=== PATIENT | female | born 1965 | race Caucasian/White ===

== ENCOUNTER 2019-03-30 01:07 | Inpatient (IN) | payer BC ==
[2019-03-30] MEDS ORDERED: Norepinephrine 16MCG/ML IVPRE* 4,000 MCG/250 ML BAG IV ONE (03:17)
[2019-03-30] MEDS ORDERED: Ondansetron INJ* 2 MG/ML VIAL IV PRN (03:49)
[2019-03-30] MEDS ORDERED: Al Hydrox/Mg Hydrox/Simet LIQ* 30 ML UDC PO PRN (03:49)
[2019-03-30] MEDS ORDERED: NS 0.9% 1000 ML** 2,000 ML IV ONE ×2 (03:52→04:14)
[2019-03-30] MEDS ORDERED: Norepinephrine 16MCG/ML IVPRE* 4,000 MCG/250 ML BAG IV SCH (04:00)
[2019-03-30] MEDS ORDERED: NS 0.9% 1000 ML** 1,000 ML IV SCH (04:00)
[2019-03-30 04:23] LABS: Urine Appearance Clear; Urine Bacteria Absent (Absent); Urine Bilirubin Negative (Negative); Urine Blood 2+ (Negative); Urine Color Yellow; Urine Glucose Negative (Negative); Urine Ketones Trace (Negative); Urine Nitrite Negative (Negative); Urine Protein Negative (Negative); Urine Red Blood Cell Trace(0-2/hpf) (Absent); Urine Specific Gravity 1.011 (1.010-1.030); Urine Urobilinogen Negative (Negative); Urine White Blood Cell Trace(0-5/hpf) (Absent)
[2019-03-30 04:42] LABS: ABS Lymphocytes 0.8 10^3/ul (1.0-4.8); ABS Monocytes 1.1 10^3/ul (0-0.8); ABS Neutrophils 11.9 10^3/ul (1.5-7.7); Hematocrit 36 % (35-47); Lymphocyte % 5.5 %; Mean Corpuscular HGB Conc 34 g/dL (31-36); Mean Corpuscular Hemoglobin 34 pg (27-31); Mean Corpuscular Volume 100 fL (80-97); Mean Platelet Volume 7.7 fL (7.4-10.4); Platelet Count 135 10^3/uL (150-450); Red Blood Count 3.56 10^6 /uL (3.70-4.87); Red Cell Distribution Width 12 % (10-15); White Blood Count 13.8 10^3/uL (3.5-10.8)
[2019-03-30] MEDS ORDERED: Vancomycin(*) 1,000 MG in NS 0.9% 250 ML* 250 ML IVPB ONE (04:45)
[2019-03-30] MEDS ORDERED: Vancomycin per Pharmacy* NOTE FOLLOW UP SCH (05:00)
[2019-03-30] MEDS: Morphine INJ* 2 MG/ML 1 ML SYRINGE (TWO MG - NEW SYRINGE VERSION) IV PRN ×5 (05:10→21:47)
[2019-03-30] MEDS: Heparin VIAL(*) 5000 UNITS/ML VIAL (FIVE THOUSAND) SUBCUT SCH ×3 (05:10→21:53)
[2019-03-30] MEDS ORDERED: Cefepime 2 GM in Dextrose(*) 2 GM/50 ML BAG IV SCH (06:30)
--- NOTE | 2019-03-30 07:39 | HP ---
CC: Dr. Aury Georges * HISTORY AND PHYSICAL: DATE OF ADMISSION: 03/30/19 PRIMARY CARE PROVIDER: Aury Georges DO CHIEF COMPLAINT: Lower back pain and fever. The patient was transferred from [facility] with septic shock. HISTORY OF PRESENT ILLNESS: Teresa Alvarez is a 54-year-old female with a history of COPD, who presented to [facility] with fever of 105.6 degrees. The patient stated that on 03/28/19, she developed severe lower back pain. She came to [facility] at that point for evaluation. She stated that she spent about 6 hours or so in the emergency department during which time she had an MRI of the lumbar spine, which showed impression, "this pathology as described above. Degenerative changes in the setting involving the lumbar spine as described above. Following administration of contrast, enhancement involving the L5 and S1 nerve roots was identified likely secondary to inflammation resulting from this pathology. There is no acute abnormality otherwise identified." The patient was prescribed Canalou and Flexeril and discharged home on Sunday, 05/06. On 03/29/19, she developed generalized weakness, chills, and fever. She stated that her legs became so weak she could not walk. Her placed her in the car and brought her to the hospital. She was so weak that she was unable to get out of the car by herself and the hospital staff had to bring the patient over to [facility]. At that point, her temperature was 105.6 degrees. She was apparently confused. She received 3 L of intravenous fluids and was placed on Levophed. Extensive evaluation was performed at [facility] that included CT of the brain, which showed impression "no unenhanced CT evidence of acute intracranial abnormality." CT of the abdomen and pelvis was also performed, which showed "mild haziness of the retroperitoneal region, which may represent questionable early retroperitoneal fibrosis. Clinical correlation and followup is recommended. Otherwise, no unenhanced CT evidence of acute intrapelvic abnormality. The patient also had chest CT without contrast, which showed "predominantly bilateral upper and lower emphysematous changes with mild right basilar atelectasis. Right pulmonary nodule lung-RADS category II benign. Annual screening with low definition CT test is recommended for high-risk patients." The patient's white blood cell count at [facility] was noted to be 12.1. The patient's lactic acid was negative at 1.3. She received 3 L of intravenous fluids and Levaquin due to PENICILLIN allergy. Dr. Arriaga was called by the ED provider from [facility] about the patient needing pressors and she accepted the transfer. When the patient arrived to our hospital, she was afebrile. Her systolic pressures were at approximately 100, on 3 mcg of Levophed only. She was alert and oriented x3. She is going to be admitted to the intensive care unit with diagnosis of septic shock. PAST MEDICAL HISTORY: 1. History of COPD. 2. Right carpal tunnel release. MEDICATIONS: Medications at home include: 1. Canalou 5/325 mg 1 tablet every 6 hours p.r.n. and that was prescribed on 05/06 in the ED. 2. Flexeril 10 mg every 8 hours p.r.n., prescribed 2 days ago. 3. Celexa 20 mg daily. 4. Albuterol inhaler on a p.r.n. basis. 5. Spiriva inhaler 1 inhalation daily. 6. Diclofenac sodium 75 mg take as needed. ALLERGIES: PENICILLIN. The patient does not know what the allergy was. Her parents told her that she is "allergic." FAMILY HISTORY: Positive for mother with ovarian cancer, father with history of COPD. SOCIAL HISTORY: The patient has a history of smoking half a pack of cigarettes a day and she started when she was 12 years old and continues to do so. She denies any alcohol or drug use. 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 She lives with her , who is her surrogate. REVIEW OF SYSTEMS: Please see history of present illness. All remaining 12 systems were reviewed with the patient and were, otherwise, negative. PHYSICAL EXAMINATION GENERAL: The patient is a very pleasant 54-year-old female, who is in no acute distress. She is alert and oriented x3. VITAL SIGNS: Blood pressure is 104/56, heart rate of 79 and regular, respiratory rate is 20, oxygen saturation is 81% on room air, temperature of 98.0. HEENT: Head atraumatic, normocephalic. Eyes: Pupils are equal and reactive to light and accommodation. Oropharynx is clear. Mucosa is moist. NECK: Supple, no JVD. No bruits bilaterally. RESPIRATORY: Wheezes at bilateral lower lungs. CARDIOVASCULAR: Regular rate and rhythm. No murmur. ABDOMEN: Soft and nontender. Bowel sounds present in all 4 quadrants. There is no bilateral flank tenderness on palpation. BACK: On palpation of the spinal column, the patient has severe tenderness over the palpation of the vertebral bodies of the lumbar spine of approximately L1 through L5. SKIN: On evaluation of the skin, no ecchymotic areas or rashes noted. NEUROLOGIC: On neurologic evaluation, cranial nerves II through XII are grossly intact. Motor strength is 5/5 in bilateral upper extremities and 4+/5 in bilateral lower extremities. Babinski's sign is negative bilaterally. It appears that the patient is not willing to participate fully in the motor exam of the bilateral lower extremities due to pain elicited when she tries to do so that localize in the lower back. PSYCHIATRIC: Pleasant and cooperative with the evaluation. Oriented x3 with no evidence of anxiety or depression. DIAGNOSTIC STUDIES/LAB DATA: Laboratory data obtained at [facility] include a sodium of 133, potassium of 3.9, chloride of 94, carbon dioxide 25, anion gap of 14, BUN of 16, creatinine of 0.9. Liver function test showed bilirubin of 0.9, AST of 45, ALT of 36, alkaline phosphatase of 68. CPK of 378. Troponin is 0.02. Total protein of 7.1, albumin of 3.2, globulin of 3.9. White blood cell count of 12.1, hemoglobin of 13.9, hematocrit of 40, platelets of 144. The patient has 92% of granulocytes, 5% of bands. The patient's lactic acid was 1.3. Influenza testing was negative. Urine was cloudy with pH of 5.5, specific gravity of 1.024, +3 blood, negative for nitrites, occasional rbc's and wbc's, +4 epithelial cells. No bacteria seen. Blood cultures were obtained at [facility] and pending at the time of dictation. ASSESSMENT AND PLAN: 1. This is a 54-year-old female with history of chronic obstructive pulmonary disease, who presents with severe lower back pain on 03/28/19 and a day later developed a fever and septic shock, requiring pressors. At this point, the differential includes pyelonephritis versus epidural abscess of the lumbar spine versus any other generalized infection or bacteremia. At this point, the patient received a dose of Levaquin. Currently, she is hemodynamically stable. Her CT did not show any abnormalities of the kidneys. She does have +3 blood on her urinalysis that could indicate possibility of UTI, but no bacteria was seen. At this point, we will continue to treat her with broad-spectrum antibiotics including cefepime and vancomycin. It appears that epidural abscess may be a more likely diagnosis in this patient. She has sudden onset of fever after lower back pain and mild bilateral leg weakness. She has no urinary or bowel incontinence. I discussed the case with Dr. Arriaga. Initially , it was thought that the patient actually did not receive a contrast study of the MRI on Sunday, which she did. The MRI was with and without contrast. At this point, I will obtain another emergent MRI of the lumbar spine to evaluate this further. The patient is going to be placed on neuro checks every 4 hours. 2. Chronic obstructive pulmonary disease. The patient is noted to have exacerbation and she is going to be placed on nebulizers on an as needed basis. 3. For DVT prophylaxis, the patient is going to be placed on heparin subcutaneous. 4. The patient's code status is full. Her surrogate is her . [id number]/CPS #: [id number] MTDD
[2019-03-30] MEDS ORDERED: Gadoteridol* (CONTRAST) 279.3 MG/ML 10 ML IV SCH (09:00)
[2019-03-30] MEDS ORDERED: NS 0.9% 1000 ML** 1,000 ML IV ONE (09:33)
[2019-03-30] MEDS: Acetaminophen TAB* 325 MG PO PRN ×2 (11:12→21:53)
[2019-03-30 11:49] LABS: Calcium 7.4 mg/dL (8.6-10.3); EGFR African American 118.3 (>60); EGFR Non-African American 97.8 (>60); Potassium 4.1 mmol/L (3.5-5.0)
--- NOTE | 2019-03-30 12:54 | PN ---
Date of Service: 03/30/19 - [facility] note Critical Care Services: Pt seen and examined multiple times through out the day. Pt was transferred from [facility] last night for septic shock. 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 Pt had MRI of back that showed herniated discs and was d/jourdan home on [facility]. She was brought in by her on Sunday night for evaluation of lethargy, fever, chills, weakness of LE and numbness. She was found to be febrile with Tmax of 105. She was also noted to be having AMS. She was found to be hypotensive. She was given 3L IVF with improvement in BP however still required vasopressors to maintain her MAP. She was initiated on Levophed and was transferred to [facility]. Pt remained on 2mcg of Levophed last night. She was initiated on broad spectrum abx. Her mental status improved. She was titrated off Levophed this am. She continues to c/o back pain. She has low grade fever this am. Active Medications Generic Name Dose Route Start Last Admin Trade Name Freq PRN Reason Stop Dose Admin Acetaminophen 650 mg 03/30/19 03:49 03/30/19 11:12 Tylenol Tab* PO 650 mg Q4H PRN Administration PAIN-MILD/TEMP >/= 100.4 Al Hydrox/Mg Hydrox/Simethicone 30 ml 03/30/19 03:49 Maalox Plus* PO Q6H PRN INDIGESTION Albuterol/Ipratropium 1 neb 03/30/19 04:36 Duoneb (Albuterol 2.5 Mg/Ipratropium 0.5 Mg) INH Q4H PRN SOB/WHEEZING Calcium/Vitamin D 1 tab 03/30/19 13:00 Oscal D Tab 250/125* PO BID JEREMY Gadoteridol 15 ml 03/30/19 09:00 03/30/19 09:01 Prohance* (Contrast) IV 04/01/19 08:59 15 ml ONCE JEREMY Administration Heparin Sodium (Porcine) 5,000 units 03/30/19 06:00 03/30/19 05:10 Heparin Vial(*) SUBCUT 5,000 units Q8HR JEREMY Administration Sodium Chloride 1,000 mls @ 125 mls/hr 03/30/19 04:00 03/30/19 05:47 Ns 0.9% 1000 Ml IV 125 mls/hr PER RATE JEREMY Administration Norepinephrine Bitartrate 4,000 mcg in 250 mls @ 0 mls/hr 03/30/19 04:00 05:03 Levophed 16 Mcg/Ml Premix* IV 7.5 mls/hr .PER PROTOCOL JEREMY Administration Protocol Per Protocol Cefepime HCl 2 gm in 50 mls @ 100 mls/hr 03/30/19 06:30 03/30/19 07:30 Maxipime 2 Gm In Dextrose Duplex (*) IV 100 mls/hr Q12H JEREMY Administration Vancomycin HCl 750 mg/ Sodium 250 mls @ 166.667 mls/hr 03/30/19 14:00 Chloride IVPB Q8H JEREMY Morphine Sulfate 2 mg 03/30/19 11:35 Morphine Inj (Syringe))* IV Q2H PRN PAIN - SEVERE Ondansetron HCl 4 mg 03/30/19 03:49 Zofran Inj* IV Q4H PRN NAUSEA/VOMITING Pharmacy Consult 1 note 03/30/19 05:00 Vancomycin Per Pharmacy* FOLLOW UP .VANC PER PHARMACY [facility] Protocol Pharmacy Profile Note 1 note 03/31/19 05:30 Vancomycin Trough Check FOLLOW UP 03/31/19 05:31 0530 ONE Vital Signs: Temp Pulse Resp BP SpO2 FiO2 100.4 F 102 29 119/52 92 03/30/19 12:00 03/30/19 11:30 03/30/19 11:46 03/30/19 11:30 03/30/19 11:30 Physical Exam: Gen: Pt in NAD, uncomfortable sec to back pain HEENT:PERRLA, No JVD Lungs:Good a/e b/l, wheeze + Cardiac: S1, S2+, tachycardic Abdomen: Soft, BS+ Extremities:No edema Neuro:Alert,awake, nofocal deficits Skin: No rash Back: Tenderness in lumbar spine area Fluid Balance (Past 24 Hours): I= 1248 O= 280 Net 968 Intake & Output 03/28/19 03/29/19 03/30/19 03/31/19 06:59 06:59 06:59 06:59 Intake Total 1248 Output Total 280 230 Balance 968 -230 Weight 157 lb 10.088 oz Intake: IV Fluids 965 NS (0.9%) 965 IVPB 251 NS (0.9%) 251 Medicated IV 32 CC - Norepinephrine/ 32 Levophed Output: Jon 280 230 Labs: Laboratory Results - last 24 hr 03/30/19 03/30/19 03/30/19 03:46 04:28 11:20 WBC 13.8 H RBC 3.56 L Hgb 12.0 Hct 36 MCV 100 H MCH 34 H MCHC 34 RDW 12 Plt Count 135 L MPV 7.7 Neut % (Auto) 86.3 Lymph % (Auto) 5.5 [place] % (Auto) 8.0 Eos % (Auto) 0.0 Baso % (Auto) 0.2 Absolute Neuts (auto) 11.9 H Absolute Lymphs (auto) 0.8 L Absolute Monos (auto) 1.1 H Absolute Eos (auto) 0.0 Absolute Basos (auto) 0.0 Absolute Nucleated RBC 0.0 Nucleated RBC % 0.0 Sodium 135 Potassium 4.1 Chloride 106 Carbon Dioxide 24 Anion Gap 5 BUN 12 Creatinine 0.63 Est GFR ( Amer) 118.3 Est GFR (Non-Af Amer) 97.8 BUN/Creatinine Ratio 19.0 Glucose 89 Lactic Acid Calcium 7.4 L Urine Color Yellow Urine Appearance Clear Urine pH 5.0 Ur Specific [place] 1.011 Urine Protein Negative Urine Ketones Trace A Urine Blood 2+ A Urine Nitrate Negative Urine Bilirubin Negative Urine Urobilinogen Negative Ur Leukocyte Esterase Negative Urine WBC (Auto) Trace(0-5/hpf) Urine RBC (Auto) Trace(0-2/hpf) Urine Bacteria Absent Urine Glucose Negative 03/30/19 11:20 WBC RBC Hgb Hct MCV MCH MCHC RDW Plt Count MPV Neut % (Auto) Lymph % (Auto) [place] % (Auto) Eos % (Auto) Baso % (Auto) Absolute Neuts (auto) Absolute Lymphs (auto) Absolute Monos (auto) Absolute Eos (auto) Absolute Basos (auto) Absolute Nucleated RBC Nucleated RBC % Sodium Potassium Chloride Carbon Dioxide Anion Gap BUN Creatinine Est GFR ( Amer) Est GFR (Non-Af Amer) BUN/Creatinine Ratio Glucose Lactic Acid 1.1 Calcium Urine Color Urine Appearance Urine pH Ur Specific [place] Urine Protein Urine Ketones Urine Blood Urine Nitrate Urine Bilirubin Urine Urobilinogen Ur Leukocyte Esterase Urine WBC (Auto) Urine RBC (Auto) Urine Bacteria Urine Glucose Studies: Lumbar MRI with contrast: Degenrative disc disease at L5-S1 with broad based protrusion flattening of thecal sac. No foraminal narrowing is noted.At L4-L5 there is degenerative disc disease with with broad based protrusion with asymmetry to left indenting the exiting nerve root. L2-L3, L3-L4 level of degenerative disc disease also noted. No epidural abscess noted. Nutrition: Will start diet Impression: 54 y o f current smoker with h/o COPD a/w fever, chills, AMS, hypotension requiring vasopressors Sepsis likely PNA is source Severe degenerative disc disease with no epidural abscess or central canal stenosis Leucocytosis Hypotension likely sec to sepsis, resolved Acute COPD exacerbation Plan: Neuro: Mental status improved. Likely septic encephalopathy. Having significant back pain. On Morphine prn. MRI showed severe degenrative disc disease, no concern with spinal abscess. Freqent neuro checks, aspiration precautions. Resp: COPD with acute exacerbation. c/w nebs prn. Will hold off on steroids. Smoking cessation education. Will start on Nicotine supplementation. CT chest at [employer] showed rt basal air space opacity. Suspect PNA as source for sepsis. Sputum cx to be sent. Pulm toilet. CVS: Septic shock resolved, has been off Levophed. Slightly tachycardic sec to pain and sepsis. Will monitor bl pressure kellie rubin MAP around 65. c/w IVF. ID: Sepsis likely sec to PNA. Pt with cough and secretions. Will send sputum cx. Epidural abscess was suspected given back pain and fever, MRI with contrast negative for abscess. UA was negative. Bl cx sent from [place] last night, will resend bl cx . Lactate within normal limits. Hypotension resolved. Pt currently on Cefepime and Vancomycin. Will change to Ceftriaxone and add Zithromax for 3 days. Will check Strep, Legionella urinary antigens and send Influenza swab. GI: Will start regular diet. Will decrease IV fluids when pt able to eat. GI PPx. Renal: UO good, no electrolyte abnormalities other than hypocalcemia, will start supplementation. Will d/c jon. Endo: No issues. Haem: Leucocytosis sec to sepsis. Thrombocytopenia unclear etiology, could be sec to sepsis. Will avoid drugs that could cause thrombocytopenia. Monitor for bleeding. Musculoskeletal:Back pain sec to degenerative disc disease, pain management. Will need neuro sx as out pt DVT px: Heparin sq IV access: Peripheral Jon catheter: Yes, will remove when back pain is better Critical Care Time: 30min
[2019-03-30] MEDS: Vancomycin(*) 750 MG in NS 0.9% 250 ML* 250 ML IVPB SCH ×2 (13:15→21:57)
[2019-03-30] MEDS: Calcium/Vitamin D TAB 250/125* TAB PO SCH ×2 (13:19→21:53)
[2019-03-30] MEDS: cefTRIAXone(*) 1 GM in NS 0.9% 50 ML* 50 ML IVPB SCH (14:56)
[2019-03-30 15:22] LABS: Influenza A Molecular NEGATIVE (Negative); Influenza B Molecular NEGATIVE (Negative)
[2019-03-31] MEDS: Morphine INJ* 2 MG/ML 1 ML SYRINGE (TWO MG - NEW SYRINGE VERSION) IV PRN ×3 (04:43→22:24)
[2019-03-31] MEDS ORDERED: Vancomycin Trough Check NOTE FOLLOW UP ONE (05:30)
[2019-03-31] MEDS: Heparin VIAL(*) 5000 UNITS/ML VIAL (FIVE THOUSAND) SUBCUT SCH ×3 (05:31→21:04)
[2019-03-31] MEDS: Calcium/Vitamin D TAB 250/125* TAB PO SCH ×2 (09:29→21:02)
[2019-03-31] MEDS: Albuterol/Ipratropium NEB.SOL* Albuterol 2.5 MG/Ipratropium 0.5 MG 3 ML INH PRN (13:43)
[2019-03-31] MEDS: cefTRIAXone(*) 1 GM in NS 0.9% 50 ML* 50 ML IVPB SCH (14:11)
[2019-03-31 14:24] LABS: EGFR African American 138.3 (>60); EGFR Non-African American 114.3 (>60)
[2019-03-31 14:33] LABS: Vancomycin Trough 4.5 mcg/mL
[2019-03-31] MEDS: Vancomycin(*) 750 MG in NS 0.9% 250 ML* 250 ML IVPB SCH (15:24)
[2019-03-31] MEDS: Vancomycin(*) 1,250 MG in NS 0.9% 250 ML* 250 ML IVPB SCH ×2 (15:24→23:25)
[2019-03-31] MEDS: Acetaminophen TAB* 325 MG PO PRN (16:39)
[2019-03-31] MEDS: Azithromycin 500 mg/250 ml NS 500 MG/250 ML BAG IVPB SCH (17:32)
[2019-03-31] MEDS ORDERED: Albuterol 2.5 MG/3 ML NEB.SOL* (0.083%) INH PRN (17:47)
--- NOTE | 2019-03-31 18:51 | PN ---
Subjective Date of Service: 03/31/19 Interval History: Pt c/o spasms in the back, pain radiating down b/l LE, "legs not working." She reports h/o herniated disc. She states that she has difficulty walking, stating she walks "hunched over," but does not use any assisting devices. She notes that she fell Sunday, and this is what brought her to the ER She was transferred from [place] with septic shock, suspected pneumonia, requiring pressors. Currently, she continues to complain of cough, fevers. She has no other complaints today. Objective Active Medications: Acetaminophen (Tylenol Tab*) 650 mg PO Q4H PRN Al Hydrox/Mg Hydrox/Simethicone (Maalox Plus*) 30 ml PO Q6H PRN Albuterol (Ventolin 2.5 Mg/3 Ml Neb.Denise*) 2.5 mg INH Q4H PRN Albuterol/Ipratropium (Duoneb (Albuterol 2.5 Mg/Ipratropium 0.5 Mg)) 1 neb INH Q4H PRN Buspirone HCl (Buspar Tab*) 10 mg PO BID JEREMY Calcium/Vitamin D (Oscal D Tab 250/125*) 1 tab PO BID JEREMY Escitalopram Oxalate (Lexapro *) 10 mg PO DAILY [facility] Gadoteridol (Prohance* (Contrast)) 15 ml IV ONCE [facility] Heparin Sodium (Porcine) (Heparin Vial(*)) 5,000 units SUBCUT Q8HR [facility] Ceftriaxone Sodium 1 gm/ (Sodium Chloride) 50 mls @ 100 mls/hr IVPB Q24H JEREMY Vancomycin HCl 1,250 mg/ (Sodium Chloride) 250 mls @ 166.667 mls/hr IVPB Q8H [facility] Azithromycin (Zithromax 500 Mg/250 Ml) 500 mg in 250 mls @ 250 mls/hr IVPB Q24H JEREMY Mometasone Furoate (Asmanex 220 Mcg Mdi *) 2 puff INH BID JEREMY Morphine Sulfate (Morphine Inj (Syringe))*) 2 mg IV Q2H PRN Ondansetron HCl (Zofran Inj*) 4 mg IV Q4H PRN Pharmacy Consult (Vancomycin Per Pharmacy*) 1 note FOLLOW UP .VANC PER PHARMACY JEREMY; Protocol Pharmacy Profile Note (Vancomycin Trough Check) 1 note FOLLOW UP 1430 ONE Tiotropium [place]/Olodaterol (Stiolto Respimat Inh [place] (60 Puff)) 2 puff INH DAILY JEREMY Vital Signs: Temp Pulse Resp BP Pulse Ox 99.1 F 85 20 109/51 96 03/31/19 18:07 03/31/19 18:07 03/31/19 18:07 03/31/19 18:07 03/31/19 18:07 Oxygen Devices in Use Now: Nasal Cannula Appearance: Pt is laying in bed. She appears acutely ill. She has NC in place , requiring oxygen, with mild increased work of breathing. Eyes: No Scleral Icterus, PERRLA Ears/Nose/Mouth/Throat: NL Teeth, Lips, Gums, Clear Oropharnyx, Mucous Membranes Moist Neck: NL Appearance and Movements; NL JVP, Trachea Midline Respiratory: - - Deep breathing leading to coughing paroxysms. Diffuse end- expiratory wheezing in b/l lung pearza. Abdominal: NL Sounds; No Tenderness; No Distention, No Hepatosplenomegaly Extremities: No Edema, No Clubbing, Cyanosis Neurological: Alert and Oriented x 3 Result Diagrams: 03/30/19 04:28 03/31/19 13:15 Microbiology and Other Data: Microbiology 03/31/19 08:46 Gram Stain - Final Sputum 03/30/19 11:20 Blood Culture - Preliminary Blood Venous No Growth Day 1 03/30/19 03:46 Urine Culture - Final Urine No Growth (<1,000 CFU/mL) 03/30/19 15:36 Gram Stain - Final Sputum 03/30/19 17:15 Stool Gross Appearance - Final Stool C. difficile DNA Amplification - Final 027 Presumptive NEGATIVE Toxigenic C.diff NEGATIVE 03/30/19 15:00 Legionella Urinary Antigen - Final Urine Negative Legionella Antigen Streptococcus pneumoniae Ag Screen - Final Negative S. pneumo Antigen 03/30/19 03:46 Nasal Screen MRSA (PCR) - Final Nasal Mrsa Not Detected Assess/Plan/Problems-Billing Assessment: 54 yof PMHx COPD presents to ER from [place] requiring Levophed for septic shock, suspected to be d/t pneumonia. - Patient Problems (1) Septic shock Comment: -Pt presented with fever, leukocytosis, hypotension requiring Levophed -No longer requiring pressors -UA negative -MRI lumbar spine negative for abscess -BC NGTD -Suspected source pneumonia; will check influenza -Negative legionella, S. pneumo -Sputum culture pending -Resolved (2) Pneumonia Comment: -Pt with productive cough, fever, leukocytosis; possible pna -CXR in a.m. -Continue vanco, ceftriaxone -Add azithro -Continue nebs (3) COPD exacerbation Comment: -Continue nebulizers -Add flutter valve, tessalon perles, mucinex (4) Low back pain Comment: -MRI negative for abscess; positive for L4-L5 nerve root impingement -Neurosurgery consulted (5) DVT prophylaxis Comment: -Heparin (6) Full code status Status and Disposition: Inpatient. Discharge when stable.
[2019-03-31] MEDS ORDERED: Albuterol 2.5 MG/3 ML NEB.SOL* (0.083%) INH SCH (20:00)
[2019-03-31 20:02] LABS: Influenza A Molecular NEGATIVE (Negative); Influenza B Molecular NEGATIVE (Negative)
[2019-03-31] MEDS: Mometasone 220 MCG MDI INH SCH (20:24)
[2019-03-31] MEDS: busPIRone TAB* 10 MG PO SCH (21:02)
[2019-03-31] MEDS: Escitalopram * 10 MG TAB PO SCH (21:33)
[2019-04-01] MEDS ORDERED: Albuterol 2.5 MG/3 ML NEB.SOL* (0.083%) INH PRN (02:03)
[2019-04-01] MEDS: Albuterol/Ipratropium NEB.SOL* Albuterol 2.5 MG/Ipratropium 0.5 MG 3 ML INH PRN ×2 (04:46→15:17)
[2019-04-01] MEDS: Morphine INJ* 2 MG/ML 1 ML SYRINGE (TWO MG - NEW SYRINGE VERSION) IV PRN ×4 (04:47→19:49)
[2019-04-01] MEDS: Acetaminophen TAB* 325 MG PO PRN (04:57)
[2019-04-01] MEDS: Heparin VIAL(*) 5000 UNITS/ML VIAL (FIVE THOUSAND) SUBCUT SCH ×3 (05:03→21:23)
[2019-04-01 06:10] LABS: ABS Lymphocytes 0.6 10^3/ul (1.0-4.8); ABS Monocytes 1.1 10^3/ul (0-0.8); ABS Neutrophils 8.1 10^3/ul (1.5-7.7); Eosinophil % 0.1 %; Hematocrit 33 % (35-47); Hemoglobin 11.3 g/dL (12.0-16.0); Lymphocyte % 5.9 %; Mean Corpuscular HGB Conc 34 g/dL (31-36); Mean Corpuscular Hemoglobin 34 pg (27-31); Mean Corpuscular Volume 100 fL (80-97); Mean Platelet Volume 8.5 fL (7.4-10.4); Platelet Count 152 10^3/uL (150-450); Red Blood Count 3.32 10^6 /uL (3.70-4.87); Red Cell Distribution Width 12 % (10-15); White Blood Count 9.7 10^3/uL (3.5-10.8)
[2019-04-01] MEDS: Vancomycin(*) 1,250 MG in NS 0.9% 250 ML* 250 ML IVPB SCH (06:18)
[2019-04-01 06:23] LABS: Calcium 8.4 mg/dL (8.6-10.3); Potassium 3.6 mmol/L (3.5-5.0)
[2019-04-01 06:28] LABS: EGFR African American 154.4 (>60); EGFR Non-African American 127.6 (>60)
[2019-04-01] MEDS: Mometasone 220 MCG MDI INH SCH ×2 (07:34→20:50)
[2019-04-01] MEDS: Tiotropium Brom/Olodaterol MDI INH SCH (07:34)
[2019-04-01] MEDS ORDERED: Benzonatate CAP* 100 MG PO PRN (09:00)
[2019-04-01] MEDS: Calcium/Vitamin D TAB 250/125* TAB PO SCH ×2 (10:07→21:21)
[2019-04-01] MEDS: guaiFENesin ER TAB 600 MG PO SCH ×2 (10:07→10:32)
[2019-04-01] MEDS: busPIRone TAB* 10 MG PO SCH ×2 (10:07→21:21)
[2019-04-01] MEDS ORDERED: Piperacillin/Tazobac ADVAN(*) 3.375 GM in NS 0.9% 100 ML* 100 ML IVPB ONE (10:50)
[2019-04-01] MEDS ORDERED: Zosyn per Pharmacy* NOTE FOLLOW UP SCH (11:00)
[2019-04-01] MEDS ORDERED: Vancomycin Trough Check NOTE FOLLOW UP ONE (14:30)
--- NOTE | 2019-04-01 15:11 | CONS ---
CONSULTATION NOTE: DATE OF CONSULT: 04/01/19 HISTORY OF PRESENT ILLNESS: The patient is a very pleasant 54-year-old female with a history of COPD, who initially presented to [facility] with complaints of difficulty ambulating, back pain, and a temperature of 105 degrees. The patient had previous visits for severe back pain in [facility], and she was evaluated in the emergency room and had an MRI of the lumbar spine revealing degenerative disk disease at L4-5 and L5-S1. The patient returned to the emergency room because of progression of her weakness and fever and was transferred to [facility]. Requested to see the patient by hospitalist team for the patient's complaints of back pain and MRI findings consistent with degenerative disk disease at L4-5 and L5- S1. The patient reports that she has significant amount of low back pain with radiation to both lower extremities. She reports that she has weakness in all extremities, especially in the lower extremities with numbness in both lower extremities all the way down to her feet, right equal to left. The patient reports she has been having difficulty with ability to ambulate for the last 5 months. She has been walking with a bent forward posture while for the time that she has been in the hospital, she has been able to ambulate only with a walker. The patient denies any urinary or GI incontinence. 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 She is , lives with her , and they have 3 children. She is accompanied today by her in her room. PAST MEDICAL HISTORY: COPD. PAST SURGICAL HISTORY: Carpal tunnel release. MEDICATIONS: The patient at home was on: 1. Rusk. 2. Flexeril. 3. Celexa. 4. Albuterol. 5. Spiriva. 6. Diclofenac. ALLERGIES: PENICILLIN. FAMILY HISTORY: Ovarian cancer. Father, COPD. SOCIAL HISTORY: Tobacco, positive. Alcohol, negative. Recreational drug use, negative. PHYSICAL EXAM: The patient is not in any acute distress. She is awake, alert, and oriented x3. Her pupils are equal and reactive. Cranial nerves II through XII are grossly intact. Motor 4-5/5 in all extremities. At examination, the patient though can barely lift her lower extremities above the bed possibly because of severe pain as she reports. Sensory grossly intact to light touch except decreased sensation in the right upper extremity in nondermatomal distribution. Deep tendon reflexes +1 bilaterally. No clonus. No Babinski. José Manuel's negative on the left, questionable positive on the right. The patient has no tenderness to palpation of the thoracic or lumbar spine. She has some paraspinal tenderness in the lower lumbar spine. She has free range of motion of the cervical spine. DIAGNOSTIC STUDIES: The patient had an MRI of her lumbar spine in [facility] revealing degenerative disk disease at L4-5 and L5-S1 with a CT scan of the lumbar spine revealing similar findings with disk vacuum phenomenon at the lumbar spine. The patient had a repeat MRI of the lumbar spine in [facility] that reveals again degenerative disk disease at the L4-5 and L5-S1 with bilateral neural foraminal stenosis, disk height loss especially at the L5-S1 without evidence of infection or abscess. ASSESSMENT: The patient is a very pleasant 54-year-old female with a history of chronic obstructive pulmonary disease, with complaints of severe back pain and septic shock requiring pressors. PLAN: The patient at this point continues to have significant pain. It is difficult to explain them on the pain based on her recent MRI findings as they are more chronic in nature. I think that an MRI of the thoracic spine may be beneficial to the patient to exclude any thoracic pathology, and we recommend to obtain a flexion and extension x-ray of her lumbar spine and scoliosis x- rays. We discussed with Dr. Rolando Larkin from Infectious Disease. Because of her increased suspicion for an epidural abscess, the patient may benefit from repeat of the MRI in 1 to 2 days if her condition does not improve. Thank you for allowing us to participate in the care of this patient. Please do not hesitate to contact our office in case you have any further questions or concerns regarding the care of this patient. [id number]/[facility] #: [id number] ANTHONY
--- NOTE | 2019-04-01 15:45 | CONS ---
CONSULTATION REPORT: DATE OF CONSULT: 04/01/19 REQUESTING PROVIDER: PORFIRIO Mckeon. CONSULTING SERVICE: Infectious Disease. REASON FOR CONSULTATION: Fever, back pain, bacteremia. IMPRESSION: 1. 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 This is in the setting of poor dentition including cracked tooth in the left mandible that may have been an initial source; however, with her severe debilitating thoracic and lumbar back pain, it is possible she seeded her spine. She did have an MRI of her lumbar spine with contrast that did not show spine infection or epidural abscess. She could have a thoracic process that was not detected on the lumbar imaging. She does have a productive cough and a right-sided pleural effusion without infiltrate on this chest x-ray, has been treated for presumed pneumonia. It is possible that is the source of her Fusobacterium infection which can seed the lung as well. 2. Chronic obstructive pulmonary disease with ongoing tobacco use. 3. PENICILLIN allergy, not sure of the reaction. RECOMMENDATION: 1. We will add Zosyn for anaerobic coverage of Fusobacterium and probable lung pathogens. She is going to complete a course of azithromycin as well. She can stop her vancomycin. 2. She will have an MRI of the thoracic spine with contrast about her epidural abscess, vertebral osteodiskitis or paraspinal abscess. 3. Fusobacterium can be associated with a Lemierre syndrome, but she does not have evidence of severe dental or neck infection or swelling or edema of the face and neck, so I think it is less likely. HISTORY OF PRESENT ILLNESS: This is a 54-year-old woman with COPD, admitted with septic shock. She had been well last week and then developed a sudden onset of severe back pain on Sunday. She went to the ER at [facility], had some prescriptions which she started to take at home, had progression of her pain and change in mental status. Her brought her back to [place]. She was admitted there and transferred here for septic shock where she was treated with vancomycin, cefepime, and vasopressors. She has been able to come off of the pressors. She had a fever overnight, the night before, and then during the day yesterday, had a low-grade fever 1 night last night. Her blood cultures came back today 1 of 3 bottles Fusobacterium nucleatum. C. diff PCR was negative. Legionella and pneumococcal urinary antigens were negative. Urine culture negative. Sputum sample was obtained yesterday shows 4+ neutrophils, no organisms. Today, she still has a productive cough. Her thinks her mental status is coming around, but she still has severe debilitating back pain. It is in the mid and lower back, nothing helps, movement makes it worse. She has been up to the bathroom, walking around, can use her legs, does not have weakness or numbness in her legs. She has no prosthetic material present. She has no pain in her neck, jaw, or other joints. PAST MEDICAL HISTORY: 1. COPD. 2. Status post right carpal tunnel release. 3. Allergy to PENICILLIN, unknown reaction. MEDICATIONS: 1. Tylenol. 2. Azithromycin 500 mg daily. 3. BuSpar. 4. Calcium with vitamin D. 5. Lexapro. 6. Guaifenesin. 7. Heparin subcutaneous injection. 8. Morphine as needed. 9. Zosyn 3.375 g every 8 hours by extended infusion. FAMILY HISTORY: Mother had ovarian cancer. Father had COPD. SOCIAL HISTORY: She lives in [place] with her and brother. No sick contacts. She does smoke half a pack a day. Does not use alcohol or injection drugs. Works in [employer] services of [facility]. REVIEW OF SYSTEMS: All negative except as noted above to a 14-point review of systems. PHYSICAL EXAM: Vital Signs: Temperature 36.7, heart rate 75, respiratory rate 18, blood pressure 109/61, oxygen saturation 96% on 2 L by nasal cannula. General: She is awake and uncomfortable. Neurologic: She is oriented x3. Follows all commands. She moves all extremities. Strength is 5/5 in the quadriceps, tibialis anterior, and gastrocnemius bilaterally. Sensation intact to light touch in the upper and lower extremities bilaterally. There is no lower extremity clonus bilaterally. Neck is supple without mass. HEENT: There is no conjunctival hemorrhage. Oropharynx without lesions. Upper teeth absent. Lower teeth are mostly present. Left-sided mandible, there is a cracked tooth. There is no gum erythema. Lymph Nodes: There is no cervical, supraclavicular, inguinal, axillary, or epitrochlear lymphadenopathy. Heart is regular rate and rhythm without murmurs, rubs, or gallops. Lungs are clear to auscultation bilaterally. Abdomen: Soft, nontender, nondistended. There are bowel sounds present. Skin: There is no rash or splinter hemorrhage. Musculoskeletal: There is thoracic and lumbar tenderness to palpation. She has severe pain rolling over in the bed. There is no joint synovitis. LABORATORY DATA: White blood cell count 9, hemoglobin 11, platelets 152. Creatinine 0.5. Influenza PCR negative. Urinalysis shows blood and ketones. No leukocyte esterase. Please see impressions and recommendations outlined above that I discussed with Dr. Cardoza and PORFIRIO Mckeon. Thanks for asking me to see Ms. Alvarez in consultation. [id number]/[facility] #: [id number] ANTHONY
[2019-04-01] MEDS: Azithromycin 500 mg/250 ml NS 500 MG/250 ML BAG IVPB SCH (16:25)
--- NOTE | 2019-04-01 16:42 | PN ---
Subjective Date of Service: 04/01/19 Interval History: Pt states she feels "awful" today, but that she does not want to talk about it, because I am not her counselor. She continues to have low back pain that is right sided. She has a productive cough, SOB, wheeze- she states that she has had this for appx 10 years, but it has worsened in the last 1 month. Pt has a top plate, and some "bad teeth" in lower jaw. She states she cannot regularly see a dentist. No other complaints today. Objective Active Medications: Acetaminophen (Tylenol Tab*) 650 mg PO Q4H PRN Al Hydrox/Mg Hydrox/Simethicone (Maalox Plus*) 30 ml PO Q6H PRN Albuterol/Ipratropium (Duoneb (Albuterol 2.5 Mg/Ipratropium 0.5 Mg)) 1 neb INH Q4H PRN Benzonatate (Tessalon Cap*) 100 mg PO BID PRN Buspirone HCl (Buspar Tab*) 10 mg PO BID JEREMY Calcium/Vitamin D (Oscal D Tab 250/125*) 1 tab PO BID JEREMY Escitalopram Oxalate (Lexapro *) 10 mg PO 2100 JEREMY Heparin Sodium (Porcine) (Heparin Vial(*)) 5,000 units SUBCUT Q8HR JEREMY Azithromycin (Zithromax 500 Mg/250 Ml) 500 mg in 250 mls @ 250 mls/hr IVPB Q24H JEREMY Piperacillin Sod/Tazobactam (Sod 3.375 gm/ Sodium Chloride) 100 mls @ 25 mls/ hr IVPB Q8H JEREMY Mometasone Furoate (Asmanex 220 Mcg Mdi *) 2 puff INH BID JEREMY Morphine Sulfate (Morphine Inj (Syringe))*) 2 mg IV Q2H PRN Ondansetron HCl (Zofran Inj*) 4 mg IV Q4H PRN Pharmacy Consult (Zosyn Per Pharmacy*) 1 note FOLLOW UP .ZOSYN PER PHARMACY JEREMY Tiotropium [place]/Olodaterol (Stiolto Respimat Inh [place] (60 Puff)) 2 puff INH DAILY JEREMY Vital Signs: Temp Pulse Resp BP Pulse Ox 97.1 F 98 18 139/59 94 04/01/19 15:47 04/01/19 15:47 04/01/19 16:23 04/01/19 15:47 04/01/19 15:47 Oxygen Devices in Use Now: Nasal Cannula Appearance: Pt is sitting at edge of bed. She appears unhappy, but is cooperative and appropriate eventually. She has increased work of breathing and is requiring O2. Eyes: No Scleral Icterus, PERRLA Ears/Nose/Mouth/Throat: NL Teeth, Lips, Gums, Clear Oropharnyx, Mucous Membranes Moist, - - Poor Neck: NL Appearance and Movements; NL JVP, Trachea Midline Respiratory: - - Increased work of breathing. End expiratory wheeze throughout b/l lungs. Cardiovascular: NL Sounds; No Murmurs; No JVD, RRR Abdominal: NL Sounds; No Tenderness; No Distention, No Hepatosplenomegaly Extremities: No Edema, No Clubbing, Cyanosis Neurological: Alert and Oriented x 3 Result Diagrams: 04/01/19 05:22 04/01/19 05:22 Microbiology and Other Data: Microbiology 03/31/19 08:46 Gram Stain - Final Sputum 03/30/19 11:20 Blood Culture - Preliminary Blood Venous No Growth Day 1 03/30/19 03:46 Urine Culture - Final Urine No Growth (<1,000 CFU/mL) 03/30/19 15:36 Gram Stain - Final Sputum 03/30/19 17:15 Stool Gross Appearance - Final Stool C. difficile DNA Amplification - Final 027 Presumptive NEGATIVE Toxigenic C.diff NEGATIVE 03/30/19 15:00 Legionella Urinary Antigen - Final Urine Negative Legionella Antigen Streptococcus pneumoniae Ag Screen - Final Negative S. pneumo Antigen 03/30/19 03:46 Nasal Screen MRSA (PCR) - Final Nasal Mrsa Not Detected Assess/Plan/Problems-Billing Assessment: 54 yof PMHx COPD presents to ER from [place] requiring Levophed for septic shock, suspected to be d/t pneumonia. - Patient Problems (1) Pneumonia Comment: -Pt with productive cough, fever, leukocytosis, continued SOB; possible pna -CXR shows R pleural effusion, interstitial edema -Echo ordered -BS with fusobacterium in 2/4 bottles; suspect respiratory source -d/c ceftriaxone, vanco and start zosyn -Continue azithro -Continue nebs (2) Bacteremia Comment: -BS with fusobacterium in 2/4 bottles; suspect respiratory source -Start zosyn (d/c vanco, ceftriaxone) -ID consulted (3) Septic shock Comment: -Pt presented with fever, leukocytosis, hypotension requiring Levophed -No longer requiring pressors -UA negative -MRI lumbar spine negative for abscess -Suspected source pneumonia -Negative legionella, S. pneumo; negative flu -Sputum culture pending -BC / bottles fusobacterium -Septic shock resolved (4) COPD exacerbation Comment: -Continue nebulizers -Add flutter valve, tessalon perles (5) Low back pain Comment: -MRI negative for abscess; positive for L4-L5 nerve root impingement -Neurosurgery consulted -Recommend MRI thoracic with contrast (ordered) (6) DVT prophylaxis Comment: -Heparin (7) Full code status Status and Disposition: Inpatient. Discharge when stable.
[2019-04-01] MEDS: ZOSYN 3.375 GM Q8H per EXTENDED INFUSION IVPB SCH ×2 (17:37)
[2019-04-01] MEDS ORDERED: Gadoteridol* (CONTRAST) 279.3 MG/ML 10 ML IV ONE (20:40)
[2019-04-01] MEDS: Escitalopram * 10 MG TAB PO SCH (21:21)
[2019-04-02] MEDS: ZOSYN 3.375 GM Q8H per EXTENDED INFUSION IVPB SCH ×6 (01:31→18:17)
[2019-04-02] MEDS: Albuterol HFA INHALER* 8 gm MDI INH PRN ×3 (02:10→20:23)
[2019-04-02] MEDS: Morphine INJ* 2 MG/ML 1 ML SYRINGE (TWO MG - NEW SYRINGE VERSION) IV PRN ×6 (02:28→21:51)
[2019-04-02] MEDS: Heparin VIAL(*) 5000 UNITS/ML VIAL (FIVE THOUSAND) SUBCUT SCH ×3 (05:44→21:34)
[2019-04-02] MEDS: Mometasone 220 MCG MDI INH SCH ×2 (08:02→20:23)
[2019-04-02] MEDS: Tiotropium Brom/Olodaterol MDI INH SCH (08:03)
[2019-04-02] MEDS ORDERED: Furosemide IV* 10 MG/ML VIAL (40 MG) IV ONE (08:33)
[2019-04-02] MEDS ORDERED: NS 0.9% 100 ML* 100 ML ONE (09:18)
[2019-04-02] MEDS: Calcium/Vitamin D TAB 250/125* TAB PO SCH ×2 (09:30→21:38)
[2019-04-02] MEDS: busPIRone TAB* 10 MG PO SCH ×2 (09:30→21:38)
--- NOTE | 2019-04-02 09:35 | PN ---
Subjective Date of Service: 04/02/19 Interval History: Ms. Alvarez states she is "not great" today. She continues to have a productive cough, denies fever chills. She has shortness of breath, but notes that this has improved. She has low back pain which has not changed in nature or intensity. She continues to have LE numbness, tingling, weakness. She has no other complaints today. Objective Active Medications: Acetaminophen (Tylenol Tab*) 650 mg PO Q4H PRN Al Hydrox/Mg Hydrox/Simethicone (Maalox Plus*) 30 ml PO Q6H PRN Albuterol (Ventolin Hfa Inhaler*) 2 puff INH Q4H PRN Albuterol/Ipratropium (Duoneb (Albuterol 2.5 Mg/Ipratropium 0.5 Mg)) 1 neb INH Q4H PRN Benzonatate (Tessalon Cap*) 100 mg PO BID PRN Buspirone HCl (Buspar Tab*) 10 mg PO BID JEREMY Calcium/Vitamin D (Oscal D Tab 250/125*) 1 tab PO BID JEREMY Escitalopram Oxalate (Lexapro *) 10 mg PO 2100 JEREMY Heparin Sodium (Porcine) (Heparin Vial(*)) 5,000 units SUBCUT Q8HR JEREMY Azithromycin (Zithromax 500 Mg/250 Ml) 500 mg in 250 mls @ 250 mls/hr IVPB Q24H JEREMY Piperacillin Sod/Tazobactam (Sod 3.375 gm/ Sodium Chloride) 100 mls @ 25 mls/ hr IVPB Q8H JEREMY Mometasone Furoate (Asmanex 220 Mcg Mdi *) 2 puff INH BID JEREMY Morphine Sulfate (Morphine Inj (Syringe))*) 2 mg IV Q2H PRN Ondansetron HCl (Zofran Inj*) 4 mg IV Q4H PRN Pharmacy Consult (Zosyn Per Pharmacy*) 1 note FOLLOW UP .ZOSYN PER PHARMACY JEREMY Tiotropium [place]/Olodaterol (Stiolto Respimat Inh [place] (60 Puff)) 2 puff INH DAILY JEREMY Vital Signs: Temp Pulse Resp BP Pulse Ox 97.9 F 90 16 108/54 94 04/02/19 07:40 04/02/19 08:05 04/02/19 09:04 04/02/19 07:40 04/02/19 08:05 Oxygen Devices in Use Now: Nasal Cannula Appearance: Pt is overweight middle-aged white female who is laying in bed sleeping with HOB elevated. She wakes easily, but appears somewhat groggy. She is cooperative, appropriate. She is in no acute distress, breathing comfortably on 3L NC. Eyes: No Scleral Icterus, PERRLA Ears/Nose/Mouth/Throat: NL Teeth, Lips, Gums, Clear Oropharnyx, Mucous Membranes Moist Neck: NL Appearance and Movements; NL JVP, Trachea Midline Respiratory: - - Symetrical chest expansion; work of breathing improved, though still requiring supp O2. Breath sounds diminished throughout; unable to take deep breaths without paroxysms of coughing. Intermittent wheeze in b/l lungs. Cardiovascular: NL Sounds; No Murmurs; No JVD, RRR, No Edema Abdominal: NL Sounds; No Tenderness; No Distention, No Hepatosplenomegaly Extremities: No Edema, No Clubbing, Cyanosis Neurological: Alert and Oriented x 3 Result Diagrams: 04/01/19 05:22 04/01/19 05:22 Microbiology and Other Data: Microbiology 03/31/19 08:46 Gram Stain - Final Sputum 03/30/19 11:20 Blood Culture - Preliminary Blood Venous No Growth Day 1 03/30/19 03:46 Urine Culture - Final Urine No Growth (<1,000 CFU/mL) 03/30/19 15:36 Gram Stain - Final Sputum 03/30/19 17:15 Stool Gross Appearance - Final Stool C. difficile DNA Amplification - Final 027 Presumptive NEGATIVE Toxigenic C.diff NEGATIVE 03/30/19 15:00 Legionella Urinary Antigen - Final Urine Negative Legionella Antigen Streptococcus pneumoniae Ag Screen - Final Negative S. pneumo Antigen 03/30/19 03:46 Nasal Screen MRSA (PCR) - Final Nasal Mrsa Not Detected Assess/Plan/Problems-Billing Assessment: 54 yof PMHx COPD presents to ER from [place] requiring Levophed for septic shock, suspected to be d/t pneumonia. - Patient Problems (1) Bacteremia Comment: -BC with fusobacterium in 1/4 bottles; suspect respiratory source -Start zosyn (d/c vanco, ceftriaxone) -ID consulted; recommends continue zosyn, azithromycin (2) Pneumonia Comment: -Pt with productive cough, fever, leukocytosis, continued SOB; possible pna -CXR shows R pleural effusion, interstitial edema -BC with fusobacterium in 1/4 bottles; suspect respiratory source -d/c ceftriaxone, vanco and start zosyn -Continue azithro -Continue nebs (3) Interstitial edema Comment: -CXR shows R pleural effusion, interstitial edema -Lasix 40 x1 now and assess for improvement, further dosing -Echo ordered -BNP 638 (4) Low back pain Comment: -Neurosurgery consulted; thank you for recommendations -MRI L spine: negative for abscess; positive for L4-L5 nerve root impingement -MRI T spine: spondylopathy; negative for abscess -L spine flex/ext, scoliosis series ordered -PT, OT ordered (5) Septic shock Comment: -Pt presented with fever, leukocytosis, hypotension requiring Levophed -No longer requiring pressors -UA negative -MRI lumbar spine, thoracic spine negative for abscess -Suspected source pneumonia -Negative legionella, S. pneumo; negative flu -Sputum culture pending -BC 1/4 bottles fusobacterium -Septic shock resolved (6) COPD exacerbation Comment: -Continue nebulizers -Add flutter valve, tessalon perles (7) Tobacco abuse Comment: -Pt refusing nicotine replacement (8) DVT prophylaxis Comment: -Heparin (9) Full code status Status and Disposition: Inpatient. Discharge when stable.
[2019-04-02] MEDS ORDERED: Perflutren Lipid Microsphere* 3 ML VIAL ONE (10:55)
[2019-04-02] MEDS: Azithromycin 500 mg/250 ml NS 500 MG/250 ML BAG IVPB SCH (17:17)
--- NOTE | 2019-04-02 17:22 | ECHO ---
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 Respiratory distress. History: Sepsis with bacteremia and suspected pneumonia. Chronic obstructive pulmonary disease. Risk factors: Current tobacco use. Conclusions Summary: - Left ventricle: Systolic function is vigorous. The estimated ejection fraction is 60-65%. Left ventricular diastolic function parameters are normal. - Right ventricle: The cavity size is mildly dilated. Wall thickness is mildly increased at 0.7 cm. Systolic function is mildly reduced. - Ventricular septum: There is septal flattening of the interventricular septum consistent with RV volume or pressure overload. - Mitral valve: There is trace to mild regurgitation. - Aortic valve: The valve is trileaflet. The leaflets are mildly thickened with normal function. - Tricuspid valve: There is mild regurgitation. - Pulmonary arteries: Systolic pressure is mildly to moderately increased, estimated to be 44 mm Hg. - No prior echocardiogram to compare. Study data: Transthoracic echocardiogram. Procedure: Transthoracic echocardiography was performed. Image quality was fair. The study was technically limited due to smoking history. Intravenous Definity 3 ml was administered to enhance imaging. Complete 2D, spectral Doppler, and color flow Doppler. Location: Bedside. Patient status: Inpatient. Patient room number: 421. Rhythm: Normal sinus rhythm. Findings Left ventricle: The cavity size is normal. Wall thickness is normal. Systolic function is vigorous. The estimated ejection fraction is 60-65%. Wall motion is normal; there are no regional wall motion abnormalities. Left ventricular diastolic function parameters are normal. Right ventricle: The cavity size is mildly dilated. Wall thickness is mildly increased at 0.7 cm. The moderator band is in a normal position. Systolic function is mildly reduced. Ventricular septum: There is septal flattening of the interventricular septum consistent with RV volume or pressure overload. Left atrium: The atrium is normal in size. Right atrium: The atrium is normal in size. Mitral valve: The leaflets are mildly thickened. There is no evidence of stenosis. There is trace to mild regurgitation. Aortic valve: The valve is trileaflet. The leaflets are mildly thickened. Cusp separation is normal. There is no evidence of stenosis. There is no significant regurgitation. Tricuspid valve: The valve is structurally normal. There is no evidence of stenosis. There is mild regurgitation. Pulmonic valve: Not well visualized. There is no evidence of stenosis. There is trace regurgitation. Aorta: Aortic root: The aortic root is appears normal. Ascending aorta: The ascending aorta is not dilated. Aortic arch: The aortic arch is not dilated. Pericardium: A small pericardial effusion is identified posterior to the heart. Pulmonary arteries: The main pulmonary artery is normal-sized. Systolic pressure is mildly to moderately increased, estimated to be 44 mm Hg. Systemic veins: Inferior vena cava: The vessel is normal in size. There is (< 50%) respiratory change in the IVC dimension. Measurements Left ventricle Value Ref Aortic valve continued Value Ref ELLI, LAX 4.6 cm 3.8 - 5.2 Richie diam/bsa, ED 1.1 cm/m^2 ---- ESD, LAX 3.3 cm 2.2 - 3.5 Peak v, S 1.67 m/sec ---- FS, LAX 28 % 27 - 45 VTI, S 32.0 cm ---- PW, ED 0.9 cm 0.6 - 0.9 Mean grad, S 6.0 mm Hg ---- IVS/PW, ED 1 Peak grad, S 11.2 mm Hg ---- E', lat richie, TDI 13.7 cm/sec >=10.0 LVOT/AV, VTI ratio 0.8 ---- E/e', lat richie, 6 TDI Mitral valve Value Ref E', med richie, TDI 10.4 cm/sec >=7.0 Peak E 0.82 m/sec ---- E/e', med richie, 8 Peak A 0.97 m/sec --- - TDI Decel time 218 ms ---- E', avg, TDI 12.1 cm/sec Peak grad, D 2.7 mm Hg --- - E/e', avg, TDI 7 <=14 Peak E/A ratio 0.8 ---- LVOT Value Ref Pulmonic valve Value Ref Peak lauren, S 1.55 m/sec Peak v, S 0.81 m/sec ---- VTI, S 25.7 cm Peak grad, S 3.0 mm Hg ---- Peak grad, S 10 mm Hg Mean grad, S 5 mm Hg Tricuspid valve Value Ref Peak RV-RA grad, S 36 mm Hg ---- Ventricular septum Value Ref Max TR lauren 3 m/sec ---- IVS, ED 0.9 cm 0.6 - 0.9 Aortic root Value Ref Right ventricle Value Ref Root diam 2.8 cm <4.0 ELLI, LAX 3.5 cm ELLI minor ax, A4C 3.3 cm 1.9 - 3.5 Ascending aorta Value Ref mid AAo AP diam, S 3.0 cm ---- Pressure, S 44 mm Hg Aortic arch Value Ref Left atrium Value Ref Arch diam 2.3 cm ---- AP dim, ES 3.00 cm 2.70 - 3.80 Decending aorta Value Ref ML dim, A4C 3.6 cm Raffi peak lauren 0.68 m/sec ---- SI dim, A4C 4.5 cm Vol/bsa, ES, 1-p 15 ml/m^2 11 - 40 Pulmonary artery Value Ref A4C Pressure, S 44.0 mm Hg ---- Vol/bsa, ES, A/L 17 ml/m^2 16 - 34 Inferior vena cava Value Ref Right atrium Value Ref Diam 2.1 cm ---- ML dim, ES, A4C 3.4 cm 2.6 - 4.4 SI dim, ES, A4C 4.5 cm 3.4 - 5.3 Estimated RAP 8 mm Hg Aortic valve Value Ref Richie diam, ED 2.0 cm Legend: (L) and (H) agusto values outside specified reference range. Prepared and electronically signed by Christy Lopez MD 04/02/2019 17:21
[2019-04-02] MEDS: Escitalopram * 10 MG TAB PO SCH (21:38)
[2019-04-03] MEDS: ZOSYN 3.375 GM Q8H per EXTENDED INFUSION IVPB SCH ×6 (02:10→21:34)
[2019-04-03] MEDS: Morphine INJ* 2 MG/ML 1 ML SYRINGE (TWO MG - NEW SYRINGE VERSION) IV PRN ×7 (04:49→22:17)
[2019-04-03] MEDS: Heparin VIAL(*) 5000 UNITS/ML VIAL (FIVE THOUSAND) SUBCUT SCH ×3 (04:53→22:17)
[2019-04-03 06:52] LABS: Hematocrit 30 % (35-47); Hemoglobin 10.7 g/dL (12.0-16.0); Mean Corpuscular HGB Conc 35 g/dL (31-36); Mean Corpuscular Hemoglobin 35 pg (27-31); Mean Corpuscular Volume 99 fL (80-97); Mean Platelet Volume 8.1 fL (7.4-10.4); Platelet Count 215 10^3/uL (150-450); Red Blood Count 3.08 10^6 /uL (3.70-4.87); Red Cell Distribution Width 12 % (10-15); White Blood Count 11.3 10^3/uL (3.5-10.8)
[2019-04-03 07:08] LABS: Albumin 2.7 g/dL (3.2-5.2); Albumin/Globulin Ratio 0.9 (1-3); Calcium 8.1 mg/dL (8.6-10.3); EGFR African American 199.8 (>60); EGFR Non-African American 165.1 (>60); Globulin 2.9 g/dL (2-4); Total Bilirubin 0.5 mg/dL (0.2-1.0); Total Protein 5.6 g/dL (6.4-8.9)
[2019-04-03] MEDS: Tiotropium Brom/Olodaterol MDI INH SCH (07:30)
[2019-04-03] MEDS: Mometasone 220 MCG MDI INH SCH ×2 (07:30→19:18)
[2019-04-03] MEDS: busPIRone TAB* 10 MG PO SCH ×2 (08:21→22:16)
[2019-04-03] MEDS: Calcium/Vitamin D TAB 250/125* TAB PO SCH ×2 (08:21→22:16)
[2019-04-03 08:25] LABS: ABS Lymphocytes 0.8 10^3/ul (1.0-4.8); ABS Monocytes 1.4 10^3/ul (0-0.8); ABS Neutrophils 9.1 10^3/ul (1.5-7.7); Eosinophil % 0.4 %; Lymphocyte % 7.4 %
[2019-04-03] MEDS ORDERED: Potassium Chlor TAB* 20 MEQ TAB.ER PO ONE ×2 (08:27→13:43)
[2019-04-03] MEDS: KCL 20 MEQ/100 ML IVPREMIX* 20 MEQ/100 ML BAG IV SCH ×2 (08:57→13:57)
--- NOTE | 2019-04-03 10:08 | PN ---
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 No abd pain or nausea. Objective: Vital Signs Temp 37.4 C 04/03/19 03:15 Pulse 82 04/03/19 03:15 Resp 16 04/03/19 08:11 BP 121/63 04/03/19 03:15 Pulse Ox 96 04/03/19 03:15 Intake & Output 04/02/19 04/03/19 04/03/19 18:59 06:59 18:59 Intake Total 1230 440 Output Total 2600 625 Balance -1370 -185 Intake: IVPB 110 200 ABX - ZOSYN 110 200 Oral 1120 240 Output: [place] 2600 625 Other: Estimated Void Small # Bowel Movements 1 Estimated Stool Amount Small # Voids 2 Gen:awake, appears more comfortable HEENT: no thrush Heart:RRR no murmur Lungs:CTA BL Abs:+BS NTND soft no rebound Skin: no rash MSK: no joint synovitis Laboratory Results - last 24 hr 04/02/19 04/03/19 04/03/19 12:40 06:11 06:11 WBC 11.3 H RBC 3.08 L Hgb 10.7 L Hct 30 L MCV 99 H MCH 35 H MCHC 35 RDW 12 Plt Count 215 MPV 8.1 Neut % (Auto) 80.0 Lymph % (Auto) 7.4 [place] % (Auto) 12.1 Eos % (Auto) 0.4 Baso % (Auto) 0.1 Absolute Neuts (auto) 9.1 H Absolute Lymphs (auto) 0.8 L Absolute Monos (auto) 1.4 H Absolute Eos (auto) 0.0 Absolute Basos (auto) 0.0 Absolute Nucleated RBC 0.0 Nucleated RBC % 0.0 Sodium 136 Potassium 3.0 L Chloride 97 L Carbon Dioxide 31 Anion Gap 8 BUN 8 Creatinine 0.40 L Est GFR ( Amer) 199.8 Est GFR (Non-Af Amer) 165.1 BUN/Creatinine Ratio 20.0 Glucose 102 H Calcium 8.1 L Total Bilirubin 0.50 AST 37 ALT 47 Alkaline Phosphatase 76 B-Natriuretic Peptide 638 H Total Protein 5.6 L Albumin 2.7 L Globulin 2.9 Albumin/Globulin Ratio 0.9 L Assessment: 1. Fusobacterium bacteremia and back pain; no spine infection on MRI ?intra-abd process or mycotic aneurysm with referred back pain 2. PCN allergy (told by parents she was allergic), tolerating zosyn well 3. COPD Plan: 1. continue zosyn; CT A/P w IV contrast 35 minutes floor time >50% face to face in counseling regarding results of workup and next steps
[2019-04-03] MEDS ORDERED: Iohexol 300* (CONTRAST) 10 ML SDV IV ONE (10:45)
--- NOTE | 2019-04-03 14:23 | PN ---
Subjective Date of Service: 04/03/19 Interval History: Pt continues to have LBP rated at "12 out of 10 all day." She was up with PT with walker today and is is indifferent when asked how she did/felt. At home she walks without assisting devices. Asked about how breathing is, patient states "Sucks." She is not on supp O2 when I enter and appears to be breathing more comfortably than normal. She continues to have productive cough, SOB, wheeze. No other complaints today. Objective Active Medications: Acetaminophen (Tylenol Tab*) 650 mg PO Q4H PRN Al Hydrox/Mg Hydrox/Simethicone (Maalox Plus*) 30 ml PO Q6H PRN Albuterol (Ventolin Hfa Inhaler*) 2 puff INH Q4H PRN Albuterol/Ipratropium (Duoneb (Albuterol 2.5 Mg/Ipratropium 0.5 Mg)) 1 neb INH Q4H PRN Benzonatate (Tessalon Cap*) 100 mg PO BID PRN Buspirone HCl (Buspar Tab*) 10 mg PO BID JEREMY Calcium/Vitamin D (Oscal D Tab 250/125*) 1 tab PO BID JEREMY Escitalopram Oxalate (Lexapro *) 10 mg PO 2100 JEREMY Heparin Sodium (Porcine) (Heparin Vial(*)) 5,000 units SUBCUT Q8HR JEREMY Azithromycin (Zithromax 500 Mg/250 Ml) 500 mg in 250 mls @ 250 mls/hr IVPB Q24H JEREMY Piperacillin Sod/Tazobactam (Sod 3.375 gm/ Sodium Chloride) 100 mls @ 25 mls/ hr IVPB Q8H JEREMY Mometasone Furoate (Asmanex 220 Mcg Mdi *) 2 puff INH BID JEREMY Morphine Sulfate (Morphine Inj (Syringe))*) 2 mg IV Q2H PRN Ondansetron HCl (Zofran Inj*) 4 mg IV Q4H PRN Pharmacy Consult (Zosyn Per Pharmacy*) 1 note FOLLOW UP .ZOSYN PER PHARMACY JEREMY Tiotropium [place]/Olodaterol (Stiolto Respimat Inh [place] (60 Puff)) 2 puff INH DAILY JEREMY Vital Signs: Temp Pulse Resp BP Pulse Ox 99.4 F 91 16 144/71 90 04/03/19 15:34 04/03/19 15:34 04/03/19 16:31 04/03/19 15:34 04/03/19 15:34 Oxygen Devices in Use Now: Nasal Cannula Appearance: Pt is a middle-aged white female who is sitting in chair with LE at floor; she appears somewhat older than stated age. Pt somewhat cantankerous, but cooperative and responds to questions with lack of detail at times. Eyes: No Scleral Icterus, PERRLA Ears/Nose/Mouth/Throat: NL Teeth, Lips, Gums, Clear Oropharnyx, Mucous Membranes Moist Neck: NL Appearance and Movements; NL JVP, Trachea Midline Respiratory: Symmetrical Chest Expansion and Respiratory Effort, - - Decreased air exchange without rhonchi, wheeze, rubs. Cardiovascular: NL Sounds; No Murmurs; No JVD, RRR, No Edema Abdominal: NL Sounds; No Tenderness; No Distention, No Hepatosplenomegaly Extremities: No Edema, No Clubbing, Cyanosis Neurological: Alert and Oriented x 3 Result Diagrams: 04/03/19 06:11 04/03/19 06:11 Microbiology and Other Data: Microbiology 03/31/19 08:46 Gram Stain - Final Sputum 03/30/19 11:20 Blood Culture - Preliminary Blood Venous No Growth Day 1 03/30/19 03:46 Urine Culture - Final Urine No Growth (<1,000 CFU/mL) 03/30/19 15:36 Gram Stain - Final Sputum 03/30/19 17:15 Stool Gross Appearance - Final Stool C. difficile DNA Amplification - Final 027 Presumptive NEGATIVE Toxigenic C.diff NEGATIVE 03/30/19 15:00 Legionella Urinary Antigen - Final Urine Negative Legionella Antigen Streptococcus pneumoniae Ag Screen - Final Negative S. pneumo Antigen 03/30/19 03:46 Nasal Screen MRSA (PCR) - Final Nasal Mrsa Not Detected Assess/Plan/Problems-Billing Assessment: 54 yof PMHx COPD presents to ER from [place] requiring Levophed for septic shock, suspected to be d/t pneumonia. - Patient Problems (1) Bacteremia Comment: -BC with fusobacterium in 2/4 bottles; suspect respiratory source -Start zosyn (d/c vanco, ceftriaxone) -ID consulted; recommends continue zosyn, azithromycin -MRI T, L spine without abscess -CT abdomen, pelvis pending (2) Pneumonia Comment: -Pt with productive cough, fever, leukocytosis, continued SOB; possible pna -CXR shows R pleural effusion, interstitial edema -BC with fusobacterium in 2/4 bottles; suspect respiratory source -d/c ceftriaxone, vanco and start zosyn -Continue azithro -Continue nebs (3) Interstitial edema Comment: -CXR shows R pleural effusion, interstitial edema -Lasix 40 yesterday with some improvement -Repeat Lasix 40 today -Echo shows EF 60-65%, no diastolic dysfunction -BNP 638 (4) Low back pain Comment: -Neurosurgery consulted; thank you for recommendations -MRI L spine: negative for abscess; positive for L4-L5 nerve root impingement -MRI T spine: spondylopathy; negative for abscess -L spine flex/ext, scoliosis series: DDD, osteoarthritis, thoracolumbar scoliosis -PT, OT ordered (5) Hypokalemia Comment: -Repleted -Recheck in a.m. (6) COPD exacerbation Comment: -Continue nebulizers -Add flutter valve, tessalon perles (7) Tobacco abuse Comment: -Pt refusing nicotine replacement (8) DVT prophylaxis Comment: -Heparin (9) Full code status Status and Disposition: Inpatient. Discharge when stable.
[2019-04-03] MEDS ORDERED: Furosemide IV* 10 MG/ML VIAL (40 MG) IV ONE (14:24)
[2019-04-03] MEDS: Albuterol HFA INHALER* 8 gm MDI INH PRN (16:16)
[2019-04-03] MEDS: Azithromycin 500 mg/250 ml NS 500 MG/250 ML BAG IVPB SCH (18:43)
--- NOTE | 2019-04-03 20:31 | PN ---
Hospitalist Progress Note Date of Service: 04/03/19 Called by V- RAd with CT of the Abd and pelvis results -the left psoas muscle with adjacent prevertebral soft tissue thickening. There is bilateral subcutaneous edema in the lower flanks. 1. Focal degenerative disc disease at L4-5 and L5-S1. In the prevertebral region, there is mild diffuse soft tissue thickening and probable small fluid collection medial to left psoas muscle. Please correlate for any intervention in this region which would be giving rise to a psoas abscess. 2. Minimal air in the bladder probably from instrumentation. No wall thickening. Called Dr. Mabry who recommended contacting interventional radiology- Oncall radiology contacted Dr. Roger - Recommended placing order in the computer for interventional radiology and calling radiology in the AM to confirm order.
[2019-04-03] MEDS: Piperacillin/Tazobac ADVAN(*) 3.375 GM in NS 0.9% 100 ML* 100 ML IVPB SCH (21:15)
[2019-04-03] MEDS: Escitalopram * 10 MG TAB PO SCH (22:17)
[2019-04-04] MEDS: Morphine INJ* 2 MG/ML 1 ML SYRINGE (TWO MG - NEW SYRINGE VERSION) IV PRN ×7 (04:27→21:23)
[2019-04-04] MEDS: Piperacillin/Tazobac ADVAN(*) 3.375 GM in NS 0.9% 100 ML* 100 ML IVPB SCH ×3 (04:30→20:56)
[2019-04-04] MEDS: Heparin VIAL(*) 5000 UNITS/ML VIAL (FIVE THOUSAND) SUBCUT SCH ×3 (04:32→21:21)
[2019-04-04 06:14] LABS: Hematocrit 30 % (35-47); Hemoglobin 10.3 g/dL (12.0-16.0); Mean Corpuscular HGB Conc 34 g/dL (31-36); Mean Corpuscular Hemoglobin 34 pg (27-31); Mean Corpuscular Volume 99 fL (80-97); Mean Platelet Volume 7.6 fL (7.4-10.4); Platelet Count 270 10^3/uL (150-450); Red Blood Count 3.04 10^6 /uL (3.70-4.87); Red Cell Distribution Width 12 % (10-15); White Blood Count 11.2 10^3/uL (3.5-10.8)
[2019-04-04 06:34] LABS: BUN/Creatinine Ratio 15.9 (8-20); Calcium 8.3 mg/dL (8.6-10.3); EGFR Non-African American 147.9 (>60); Potassium 3.3 mmol/L (3.5-5.0)
[2019-04-04 06:42] LABS: Polychromasia 1+
[2019-04-04 06:43] LABS: ABS Eosinophils 0.1 10^3/ul (0-0.6); ABS Lymphocytes 1.1 10^3/ul (1.0-4.8); ABS Monocytes 1.7 10^3/ul (0-0.8); ABS Neutrophils 8.2 10^3/ul (1.5-7.7); Eosinophil % 0.5 %
[2019-04-04] MEDS: busPIRone TAB* 10 MG PO SCH ×2 (07:30→20:53)
[2019-04-04] MEDS: Calcium/Vitamin D TAB 250/125* TAB PO SCH ×2 (07:30→20:53)
[2019-04-04] MEDS: Mometasone 220 MCG MDI INH SCH ×2 (07:51→19:47)
[2019-04-04] MEDS: Tiotropium Brom/Olodaterol MDI INH SCH (07:51)
[2019-04-04] MEDS: Albuterol HFA INHALER* 8 gm MDI INH PRN ×2 (07:52→19:48)
--- NOTE | 2019-04-04 11:26 | PN ---
Progress Note - Progress Note Date of Service: 04/04/19 SOAP: Subjective: CC: Back pain and bacteremia HPI: Ms. 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 Denies fever, chills, nausea, vomiting, or ABD pain. Reports intermittent diarrhea, states this is baseline for her and the severity depends on what she eats. Continues to have back pain, that is unchanged. Also reports a cough with thick mucous production. Objective: Vital Signs - 8 hr 04/04/19 04/04/19 04/04/19 03:30 04:27 06:01 Temperature 99.7 F Pulse Rate 77 Respiratory 17 20 18 Rate Blood Pressure 107/55 (mmHg) O2 Sat by Pulse 93 Oximetry 04/04/19 04/04/19 04/04/19 07:28 07:40 07:55 Temperature 98.8 F Pulse Rate 84 78 Respiratory 18 18 16 Rate Blood Pressure 114/55 (mmHg) O2 Sat by Pulse 95 93 Oximetry Physical Exam: General: NAD, sitting up in a chair Neurological: Alert and Oriented HEENT: Moist MM Cardiovascular: Heart rate regular Respiratory: Lung sounds with scattered rhonchi Abdominal: Bowel sounds present; ABD soft, non tender and non distended MSK: No tenderness with palpation of the back or neck Skin: No rash Laboratory Results - last 24 hr 04/04/19 04/04/19 06:02 06:02 WBC 11.2 H RBC 3.04 L Hgb 10.3 L Hct 30 L MCV 99 H MCH 34 H MCHC 34 RDW 12 Plt Count 270 MPV 7.6 Neut % (Auto) 73.8 Lymph % (Auto) 10.0 [place] % (Auto) 15.4 Eos % (Auto) 0.5 Baso % (Auto) 0.3 Absolute Neuts (auto) 8.2 H Absolute Lymphs (auto) 1.1 Absolute Monos (auto) 1.7 H Absolute Eos (auto) 0.1 Absolute Basos (auto) 0.0 Absolute Nucleated RBC 0.0 Immature Gran % 1.0 Neutrophils % 78.0 Lymphocytes % 12.0 Monocytes % 9.0 Metamyelocytes % 1.0 Nucleated RBC % 0.0 Normal RBC Morphology Not Reportable Polychromasia 1+ Sodium 138 Potassium 3.3 L Chloride 97 L Carbon Dioxide 35 H Anion Gap 6 BUN 7 Creatinine 0.44 L Est GFR ( Amer) 179.0 Est GFR (Non-Af Amer) 147.9 BUN/Creatinine Ratio 15.9 Glucose 103 H Calcium 8.3 L Microbiology 03/30/19 11:20 Blood Culture - Preliminary Blood Venous No Growth Day 4 03/31/19 08:46 Gram Stain - Final Sputum Sputum Culture - Final Normal Mame YEAST 03/30/19 17:15 Stool Gross Appearance - Final Stool C. difficile DNA Amplification - Final 027 Presumptive NEGATIVE Toxigenic C.diff NEGATIVE 03/30/19 15:36 Gram Stain - Final Sputum 03/30/19 15:00 Legionella Urinary Antigen - Final Urine Negative Legionella Antigen Streptococcus pneumoniae Ag Screen - Final Negative S. pneumo Antigen 03/30/19 03:46 Urine Culture - Final Urine No Growth (<1,000 CFU/mL) 03/30/19 03:46 Nasal Screen MRSA (PCR) - Final Nasal Mrsa Not Detected Assessment: 1. Fusobacterium bacteremia and back pain. MRI with no spine infection. ABD/ pelvis CT with psoas abscess. Afebrile and mild leukocytosis. 2. Psoas abscess. ABD/Pelvis CT showed a psoas abscess, she is scheduled for drainage later today. 3. PCN allergy (told by parents she was allergic). Tolerating Zosyn without side effects. Plan: Continue Zosyn for now. Continue Azithromycin, day 5/5. She will need an extended course of IV ABX in the setting of a psoas abscess. Final recommendations will be made after the culture results from today's procedure return.
[2019-04-04 12:39] LABS: INR 1.21 (0.82-1.09)
[2019-04-04] MEDS ORDERED: fentaNYL* 50 MCG/ML 2 ML VIAL (100 MCG VIAL) ONE (12:52)
[2019-04-04] MEDS: Azithromycin 500 mg/250 ml NS 500 MG/250 ML BAG IVPB SCH (18:43)
--- NOTE | 2019-04-04 18:43 | PN ---
Subjective Date of Service: 04/04/19 Interval History: Pt reports intermittent SOB. She is currently on supp O2 at 3L. She denies wheezing, but continues to c/o cough. She c/o increased weakness yesterday, due to overactivity. She continues to have generalized weakness, but improvement from yesterday. No other complaints. Objective Active Medications: Acetaminophen (Tylenol Tab*) 650 mg PO Q4H PRN Al Hydrox/Mg Hydrox/Simethicone (Maalox Plus*) 30 ml PO Q6H PRN Albuterol (Ventolin Hfa Inhaler*) 2 puff INH Q4H PRN Albuterol/Ipratropium (Duoneb (Albuterol 2.5 Mg/Ipratropium 0.5 Mg)) 1 neb INH Q4H PRN Benzonatate (Tessalon Cap*) 100 mg PO BID PRN Buspirone HCl (Buspar Tab*) 10 mg PO BID JEREMY Calcium/Vitamin D (Oscal D Tab 250/125*) 1 tab PO BID JEREMY Escitalopram Oxalate (Lexapro *) 10 mg PO 2100 JEREMY Heparin Sodium (Porcine) (Heparin Vial(*)) 5,000 units SUBCUT Q8HR JEREMY Piperacillin Sod/Tazobactam (Sod 3.375 gm/ Sodium Chloride) 100 mls @ 25 mls/ hr IVPB Q8H JEREMY Mometasone Furoate (Asmanex 220 Mcg Mdi *) 2 puff INH BID JEREMY Morphine Sulfate (Morphine Inj (Syringe))*) 2 mg IV Q2H PRN Ondansetron HCl (Zofran Inj*) 4 mg IV Q4H PRN Pharmacy Consult (Zosyn Per Pharmacy*) 1 note FOLLOW UP .ZOSYN PER PHARMACY JEREMY Tiotropium [place]/Olodaterol (Stiolto Respimat Inh [place] (60 Puff)) 2 puff INH DAILY JEREMY Vital Signs: Temp Pulse Resp BP Pulse Ox 99.0 F 76 18 116/48 96 04/04/19 16:34 04/04/19 16:34 04/04/19 16:34 04/04/19 16:34 04/04/19 16:34 Oxygen Devices in Use Now: Nasal Cannula Appearance: Pt is sitting in chair, LE on floor, supp O2 NC in place. She is in no acute distress. Eyes: No Scleral Icterus, PERRLA Ears/Nose/Mouth/Throat: NL Teeth, Lips, Gums, Clear Oropharnyx, Mucous Membranes Moist Neck: NL Appearance and Movements; NL JVP, Trachea Midline Respiratory: Symmetrical Chest Expansion and Respiratory Effort, Clear to Auscultation, - - Decreased breath sounds with improvement from previous exam. Cardiovascular: NL Sounds; No Murmurs; No JVD, RRR, No Edema Abdominal: No Hepatosplenomegaly - BS in all quadrants. No distention. Mildly TTP at RIGHT upper quadrant Extremities: No Edema, No Clubbing, Cyanosis Neurological: Alert and Oriented x 3 Result Diagrams: 04/04/19 06:02 04/04/19 06:02 Microbiology and Other Data: Microbiology 03/31/19 08:46 Gram Stain - Final Sputum 03/30/19 11:20 Blood Culture - Preliminary Blood Venous No Growth Day 1 03/30/19 03:46 Urine Culture - Final Urine No Growth (<1,000 CFU/mL) 03/30/19 15:36 Gram Stain - Final Sputum 03/30/19 17:15 Stool Gross Appearance - Final Stool C. difficile DNA Amplification - Final 027 Presumptive NEGATIVE Toxigenic C.diff NEGATIVE 03/30/19 15:00 Legionella Urinary Antigen - Final Urine Negative Legionella Antigen Streptococcus pneumoniae Ag Screen - Final Negative S. pneumo Antigen 03/30/19 03:46 Nasal Screen MRSA (PCR) - Final Nasal Mrsa Not Detected Assess/Plan/Problems-Billing Assessment: 54 yof PMHx COPD presents to ER from [place] requiring Levophed for septic shock, suspected to be d/t pneumonia. - Patient Problems (1) Psoas abscess, left Comment: -Pt with L psoas fluid collection noted on CT -CT-guided abscess drainage today -Fluid sent for analysis -Continue zosyn until c/s results return -Will need 4-6 weeks IV antibiotics (2) Bacteremia Comment: -BC with fusobacterium in 2/4 bottles; suspect respiratory source -Start zosyn -ID consulted; recommends continue zosyn, azithromycin -MRI T, L spine without abscess -CT abdomen, pelvis shows L psoas abscess (3) Pneumonia Comment: -Pt with productive cough, fever, leukocytosis, continued SOB; possible pna -CXR shows R pleural effusion, interstitial edema -BC with fusobacterium in 2/4 bottles; suspect respiratory source -d/c ceftriaxone, vanco and start zosyn -Continue azithro -Continue nebs (4) Interstitial edema Comment: -CXR shows R pleural effusion, interstitial edema -IV lasix 40 x2 given -SOB improving; monitor for need to repeat (5) Low back pain Comment: -Neurosurgery consulted; thank you for recommendations -MRI L spine: negative for abscess; positive for L4-L5 nerve root impingement -MRI T spine: spondylopathy; negative for abscess -L spine flex/ext, scoliosis series: DDD, osteoarthritis, thoracolumbar scoliosis -PT, OT ordered -Recommend outpatient follow up with Dr. Cardoza (6) Hypokalemia Comment: -Repleted -Recheck in a.m. (7) COPD exacerbation Comment: -Continue nebulizers -Add flutter valve, tessalon perles (8) Tobacco abuse Comment: -Pt refusing nicotine replacement (9) DVT prophylaxis Comment: -Heparin (10) Full code status Status and Disposition: Inpatient. Discharge when stable.
[2019-04-04] MEDS ORDERED: Potassium Chlor TAB* 20 MEQ TAB.ER PO ONE (18:46)
[2019-04-04] MEDS: Escitalopram * 10 MG TAB PO SCH (20:53)
[2019-04-05] MEDS: Morphine INJ* 2 MG/ML 1 ML SYRINGE (TWO MG - NEW SYRINGE VERSION) IV PRN ×4 (04:24→20:15)
[2019-04-05] MEDS: Heparin VIAL(*) 5000 UNITS/ML VIAL (FIVE THOUSAND) SUBCUT SCH ×3 (05:40→21:35)
[2019-04-05] MEDS: Piperacillin/Tazobac ADVAN(*) 3.375 GM in NS 0.9% 100 ML* 100 ML IVPB SCH ×3 (05:42→21:32)
[2019-04-05 07:02] LABS: Calcium 8.7 mg/dL (8.6-10.3); EGFR African American 183.8 (>60); EGFR Non-African American 151.9 (>60)
[2019-04-05] MEDS: Tiotropium Brom/Olodaterol MDI INH SCH (08:31)
[2019-04-05] MEDS: Mometasone 220 MCG MDI INH SCH ×2 (08:31→19:48)
[2019-04-05] MEDS: Albuterol/Ipratropium NEB.SOL* Albuterol 2.5 MG/Ipratropium 0.5 MG 3 ML INH PRN (08:38)
[2019-04-05] MEDS: busPIRone TAB* 10 MG PO SCH ×2 (10:11→20:18)
[2019-04-05] MEDS: Calcium/Vitamin D TAB 250/125* TAB PO SCH ×2 (10:11→20:18)
--- NOTE | 2019-04-05 13:01 | PN ---
Subjective Date of Service: 04/05/19 Interval History: Pt still c/o LBP, no SOB, but requiring 02 at 2 L She stated that she will likely continue on with smoking after discharge. Not concerned about the current need of oxygen and that she may be damaging her lungs by smoking. She will get the cigarettes "[place] the [place]" and is not concerned about the cost Objective Active Medications: Acetaminophen (Tylenol Tab*) 650 mg PO Q4H PRN PRN Reason: PAIN-MILD/TEMP >/= 100.4 Last Admin: 04/01/19 04:57 Dose: 650 mg Al Hydrox/Mg Hydrox/Simethicone (Maalox Plus*) 30 ml PO Q6H PRN PRN Reason: INDIGESTION Albuterol (Ventolin Hfa Inhaler*) 2 puff INH Q4H PRN PRN Reason: SOB/WHEEZING Last Admin: 04/04/19 19:48 Dose: 2 puff Albuterol/Ipratropium (Duoneb (Albuterol 2.5 Mg/Ipratropium 0.5 Mg)) 1 neb INH Q4H PRN PRN Reason: SOB/WHEEZING Last Admin: 04/05/19 08:38 Dose: 1 neb Benzonatate (Tessalon Cap*) 100 mg PO BID PRN PRN Reason: COUGH Last Admin: 04/02/19 09:04 Dose: 100 mg Buspirone HCl (Buspar Tab*) 10 mg PO BID [facility] Last Admin: 04/05/19 10:11 Dose: 10 mg Calcium/Vitamin D (Oscal D Tab 250/125*) 1 tab PO BID [facility] Last Admin: 04/05/19 10:11 Dose: 1 tab Escitalopram Oxalate (Lexapro *) 10 mg PO 2100 [facility] Last Admin: 04/04/19 20:53 Dose: 10 mg Heparin Sodium (Porcine) (Heparin Vial(*)) 5,000 units SUBCUT Q8HR [facility] Last Admin: 04/05/19 05:40 Dose: 5,000 units Piperacillin Sod/Tazobactam (Sod 3.375 gm/ Sodium Chloride) 100 mls @ 25 mls/ hr IVPB Q8H [facility] Last Admin: 04/05/19 05:42 Dose: 25 mls/hr Mometasone Furoate (Asmanex 220 Mcg Mdi *) 2 puff INH BID [facility] Last Admin: 04/05/19 08:31 Dose: 2 puff Morphine Sulfate (Morphine Inj (Syringe))*) 2 mg IV Q2H PRN PRN Reason: PAIN - SEVERE Last Admin: 04/05/19 10:14 Dose: 2 mg Ondansetron HCl (Zofran Inj*) 4 mg IV Q4H PRN PRN Reason: NAUSEA/VOMITING Last Admin: 03/31/19 22:30 Dose: 4 mg Pharmacy Consult (Zosyn Per Pharmacy*) 1 note FOLLOW UP .ZOSYN PER PHARMACY [facility] Tiotropium [place]/Olodaterol (Stiolto Respimat Inh [place] (60 Puff)) 2 puff INH DAILY [facility] Last Admin: 04/05/19 08:31 Dose: 2 puff Vital Signs - 8 hr 04/05/19 04/05/19 04/05/19 05:48 07:15 08:00 Temperature 99.1 F Pulse Rate 73 73 Respiratory 18 16 16 Rate Blood Pressure 128/71 (mmHg) O2 Sat by Pulse 96 95 Oximetry 04/05/19 04/05/19 04/05/19 10:14 11:15 11:38 Temperature 99.1 F Pulse Rate 70 Respiratory 16 16 18 Rate Blood Pressure 119/49 (mmHg) O2 Sat by Pulse 97 Oximetry Oxygen Devices in Use Now: Nasal Cannula Appearance: 54 yo F in nAD, aAOx3 Eyes: No Scleral Icterus, PERRLA Ears/Nose/Mouth/Throat: NL Teeth, Lips, Gums, Mucous Membranes Moist Neck: NL Appearance and Movements; NL JVP, Trachea Midline Respiratory: Symmetrical Chest Expansion and Respiratory Effort, Clear to Auscultation, - - diastant breath sounds b/l Cardiovascular: NL Sounds; No Murmurs; No JVD, RRR Abdominal: NL Sounds; No Tenderness; No Distention, - - back :tender to palpatiuon on left side of lumbar spine Lymphatic: No Cervical Adenopathy Extremities: No Edema, No Clubbing, Cyanosis Skin: - - ecchymosis on left shoulder Neurological: Alert and Oriented x 3, NL Muscle Strength and Tone Result Diagrams: 04/04/19 06:02 04/05/19 06:13 Microbiology and Other Data: Microbiology 03/31/19 08:46 Gram Stain - Final Sputum 03/30/19 11:20 Blood Culture - Preliminary Blood Venous No Growth Day 1 03/30/19 03:46 Urine Culture - Final Urine No Growth (<1,000 CFU/mL) 03/30/19 15:36 Gram Stain - Final Sputum 03/30/19 17:15 Stool Gross Appearance - Final Stool C. difficile DNA Amplification - Final 027 Presumptive NEGATIVE Toxigenic C.diff NEGATIVE 03/30/19 15:00 Legionella Urinary Antigen - Final Urine Negative Legionella Antigen Streptococcus pneumoniae Ag Screen - Final Negative S. pneumo Antigen 03/30/19 03:46 Nasal Screen MRSA (PCR) - Final Nasal Mrsa Not Detected Assess/Plan/Problems-Billing Assessment: 54 yof PMHx COPD presents to ER from [place] requiring Levophed for septic shock, suspected to be d/t pneumonia. - Patient Problems (1) Psoas abscess, left Comment: -Pt with L psoas fluid collection noted on CT -CT-guided abscess drainage 04/04 -Fluid cx pending -Continue zosyn until c/s results return -Will need 4-6 weeks IV antibiotics (2) Bacteremia Comment: -BC with fusobacterium in 2/4 bottles; suspect respiratory source -cont zosyn -ID consulted; recommends continuation of Zosyn for likley several weeks, awaiting cx from psoas abscess -MRI T, L spine without abscess -CT abdomen, pelvis showed L psoas abscess (3) COPD exacerbation Comment: -Continue nebulizers -contflutter valve, tessalon perles -not in exacerbation today (4) Interstitial edema Comment: -CXR shows R pleural effusion, interstitial edema -IV lasix 40 x2 given -SOB improving; monitor for need to repeat (5) Low back pain Status: Acute Comment: -Neurosurgery consulted; thank you for recommendations -MRI L spine: negative for abscess; positive for L4-L5 nerve root impingement -MRI T spine: spondylopathy; negative for abscess -L spine flex/ext, scoliosis series: DDD, osteoarthritis, thoracolumbar scoliosis -PT, OT ordered -Recommend outpatient follow up with Dr. Cardoza (6) Septic shock Comment: -BC 1/4 bottles fusobacterium -Septic shock resolved (7) Tobacco abuse Comment: -Pt refusing nicotine replacement (8) DVT prophylaxis Comment: -Heparin Status and Disposition: Inpatient.
[2019-04-05] MEDS: Albuterol HFA INHALER* 8 gm MDI INH PRN (19:48)
[2019-04-05] MEDS: Escitalopram * 10 MG TAB PO SCH (20:18)
[2019-04-05] MEDS: Acetaminophen TAB* 325 MG PO PRN (21:39)
[2019-04-06] MEDS: Morphine INJ* 2 MG/ML 1 ML SYRINGE (TWO MG - NEW SYRINGE VERSION) IV PRN ×4 (04:00→22:17)
[2019-04-06] MEDS: Piperacillin/Tazobac ADVAN(*) 3.375 GM in NS 0.9% 100 ML* 100 ML IVPB SCH ×3 (05:38→22:17)
[2019-04-06] MEDS: Heparin VIAL(*) 5000 UNITS/ML VIAL (FIVE THOUSAND) SUBCUT SCH ×3 (05:42→22:05)
[2019-04-06] MEDS: Mometasone 220 MCG MDI INH SCH ×2 (07:41→21:26)
[2019-04-06] MEDS: Tiotropium Brom/Olodaterol MDI INH SCH (07:41)
[2019-04-06] MEDS: Albuterol HFA INHALER* 8 gm MDI INH PRN ×2 (07:41→21:26)
[2019-04-06] MEDS: Calcium/Vitamin D TAB 250/125* TAB PO SCH ×2 (07:56→22:02)
[2019-04-06] MEDS: busPIRone TAB* 10 MG PO SCH ×2 (07:56→22:02)
--- NOTE | 2019-04-06 12:29 | PN ---
Subjective Date of Service: 04/06/19 Interval History: Pt feels well. Still hypoxemic, off 02 when siting at 89% on RA Back feels "sore" Objective Active Medications: Acetaminophen (Tylenol Tab*) 650 mg PO Q4H PRN PRN Reason: PAIN-MILD/TEMP >/= 100.4 Last Admin: 04/05/19 21:39 Dose: 650 mg Al Hydrox/Mg Hydrox/Simethicone (Maalox Plus*) 30 ml PO Q6H PRN PRN Reason: INDIGESTION Albuterol (Ventolin Hfa Inhaler*) 2 puff INH Q4H PRN PRN Reason: SOB/WHEEZING Last Admin: 04/06/19 07:41 Dose: 2 puff Albuterol/Ipratropium (Duoneb (Albuterol 2.5 Mg/Ipratropium 0.5 Mg)) 1 neb INH Q4H PRN PRN Reason: SOB/WHEEZING Last Admin: 04/05/19 08:38 Dose: 1 neb Benzonatate (Tessalon Cap*) 100 mg PO BID PRN PRN Reason: COUGH Last Admin: 04/02/19 09:04 Dose: 100 mg Buspirone HCl (Buspar Tab*) 10 mg PO BID [facility] Last Admin: 04/06/19 07:56 Dose: 10 mg Calcium/Vitamin D (Oscal D Tab 250/125*) 1 tab PO BID [facility] Last Admin: 04/06/19 07:56 Dose: 1 tab Escitalopram Oxalate (Lexapro *) 10 mg PO 2100 [facility] Last Admin: 04/05/19 20:18 Dose: 10 mg Heparin Sodium (Porcine) (Heparin Vial(*)) 5,000 units SUBCUT Q8HR [facility] Last Admin: 04/06/19 05:42 Dose: 5,000 units Piperacillin Sod/Tazobactam (Sod 3.375 gm/ Sodium Chloride) 100 mls @ 25 mls/ hr IVPB Q8H [facility] Last Admin: 04/06/19 05:38 Dose: 25 mls/hr Mometasone Furoate (Asmanex 220 Mcg Mdi *) 2 puff INH BID [facility] Last Admin: 04/06/19 07:41 Dose: 2 puff Morphine Sulfate (Morphine Inj (Syringe))*) 2 mg IV Q2H PRN PRN Reason: PAIN - SEVERE Last Admin: 04/06/19 07:58 Dose: 2 mg Ondansetron HCl (Zofran Inj*) 4 mg IV Q4H PRN PRN Reason: NAUSEA/VOMITING Last Admin: 03/31/19 22:30 Dose: 4 mg Oxycodone HCl (Roxycodone Tab*) 5 mg PO Q4H PRN PRN Reason: PAIN - MODERATE Pharmacy Consult (Zosyn Per Pharmacy*) 1 note FOLLOW UP .ZOSYN PER PHARMACY [facility] Tiotropium [place]/Olodaterol (Stiolto Respimat Inh [place] (60 Puff)) 2 puff INH DAILY [facility] Last Admin: 04/06/19 07:41 Dose: 2 puff Vital Signs - 8 hr 04/06/19 04/06/19 04/06/19 05:21 07:00 07:46 Temperature 97.9 F Pulse Rate 73 75 Respiratory 18 16 16 Rate Blood Pressure 130/73 (mmHg) O2 Sat by Pulse 95 92 Oximetry 04/06/19 04/06/19 04/06/19 07:47 07:58 08:45 Temperature Pulse Rate Respiratory 16 16 16 Rate Blood Pressure (mmHg) O2 Sat by Pulse Oximetry 04/06/19 11:37 Temperature 97.8 F Pulse Rate 81 Respiratory 16 Rate Blood Pressure 124/57 (mmHg) O2 Sat by Pulse 95 Oximetry Oxygen Devices in Use Now: Nasal Cannula Appearance: 54 yo f in nAD, AAOx3 Eyes: No Scleral Icterus, PERRLA Ears/Nose/Mouth/Throat: NL Teeth, Lips, Gums, Mucous Membranes Moist Neck: NL Appearance and Movements; NL JVP, Trachea Midline Respiratory: Symmetrical Chest Expansion and Respiratory Effort, Clear to Auscultation Cardiovascular: NL Sounds; No Murmurs; No JVD, RRR Abdominal: NL Sounds; No Tenderness; No Distention, - - back: tenderness to palpation of musculature on left side of lumbar spine Lymphatic: No Cervical Adenopathy Extremities: No Edema Skin: No Nodules or Sclerosis, - - ecchymosis of left shoulder Neurological: Alert and Oriented x 3, NL Muscle Strength and Tone Result Diagrams: 04/04/19 06:02 04/05/19 06:13 Microbiology and Other Data: Microbiology 03/31/19 08:46 Gram Stain - Final Sputum 03/30/19 11:20 Blood Culture - Preliminary Blood Venous No Growth Day 1 03/30/19 03:46 Urine Culture - Final Urine No Growth (<1,000 CFU/mL) 03/30/19 15:36 Gram Stain - Final Sputum 03/30/19 17:15 Stool Gross Appearance - Final Stool C. difficile DNA Amplification - Final 027 Presumptive NEGATIVE Toxigenic C.diff NEGATIVE 03/30/19 15:00 Legionella Urinary Antigen - Final Urine Negative Legionella Antigen Streptococcus pneumoniae Ag Screen - Final Negative S. pneumo Antigen 03/30/19 03:46 Nasal Screen MRSA (PCR) - Final Nasal Mrsa Not Detected Assess/Plan/Problems-Billing Assessment: 54 yof PMHx COPD presents to ER from [place] requiring Levophed for septic shock, suspected to be d/t pneumonia. - Patient Problems (1) Psoas abscess, left Comment: -Pt with L psoas fluid collection noted on CT -CT-guided abscess drainage 04/04 -Fluid cx pending -Continue zosyn until c/s results return -PICC to be placer tomorrow and likely home tomorrow. Pt would prefer to go to infusion center for daily IV antibiotic if possible -Will need 4-6 weeks IV antibiotics (2) Bacteremia Comment: -BC with fusobacterium in 2/4 bottles; suspect respiratory source -cont zosyn -ID consulted; recommends continuation of Zosyn for likely several weeks, awaiting cx from psoas abscess -MRI T, L spine without abscess -CT abdomen, pelvis showed L psoas abscess (3) COPD exacerbation Comment: -Continue nebulizers -contflutter valve, tessalon perles -not in exacerbation today (4) Interstitial edema Comment: -CXR shows R pleural effusion, interstitial edema -IV lasix 40 x2 given -SOB improving; monitor for need to repeat (5) Low back pain Status: Acute Comment: -Neurosurgery consulted; thank you for recommendations -MRI L spine: negative for abscess; positive for L4-L5 nerve root impingement -MRI T spine: spondylopathy; negative for abscess -L spine flex/ext, scoliosis series: DDD, osteoarthritis, thoracolumbar scoliosis -PT, OT ordered -Recommend outpatient follow up with Dr. Cardoza (6) Septic shock Comment: -BC + fusobacterium -Septic shock resolved (7) Tobacco abuse Comment: -Pt refusing nicotine replacement (8) DVT prophylaxis Comment: -Heparin Status and Disposition: Inpatient.
--- NOTE | 2019-04-06 16:04 | PN ---
Progress Note - Progress Note Date of Service: 04/05/19 Note: Patient was seen and examined on 04/06/2019. Dealyed entry. Psoas abscess has been drained by IR. Neuro stable. Discussed imaging findings with patient. May consider surgical intervention after infection is cleared. Follow up in office in 1 month. Will be available as needed. Appreciate IM care. Raffy Cardoza MD
[2019-04-06] MEDS: Escitalopram * 10 MG TAB PO SCH (22:02)
[2019-04-07] MEDS: Morphine INJ* 2 MG/ML 1 ML SYRINGE (TWO MG - NEW SYRINGE VERSION) IV PRN ×4 (03:30→17:46)
[2019-04-07] MEDS: Heparin VIAL(*) 5000 UNITS/ML VIAL (FIVE THOUSAND) SUBCUT SCH ×3 (05:46→21:30)
[2019-04-07] MEDS: Piperacillin/Tazobac ADVAN(*) 3.375 GM in NS 0.9% 100 ML* 100 ML IVPB SCH ×3 (05:47→21:30)
[2019-04-07 06:57] LABS: Hematocrit 34 % (35-47); Hemoglobin 11.8 g/dL (12.0-16.0); Mean Corpuscular HGB Conc 35 g/dL (31-36); Mean Corpuscular Hemoglobin 35 pg (27-31); Mean Corpuscular Volume 99 fL (80-97); Mean Platelet Volume 6.9 fL (7.4-10.4); Platelet Count 395 10^3/uL (150-450); Red Blood Count 3.43 10^6 /uL (3.70-4.87); Red Cell Distribution Width 12 % (10-15); White Blood Count 10.6 10^3/uL (3.5-10.8)
[2019-04-07 07:00] LABS: ABS Eosinophils 0.1 10^3/ul (0-0.6); ABS Lymphocytes 1.3 10^3/ul (1.0-4.8); ABS Monocytes 1.1 10^3/ul (0-0.8); ABS Neutrophils 8.1 10^3/ul (1.5-7.7); Eosinophil % 0.8 %; Lymphocyte % 12.1 %
[2019-04-07 07:20] LABS: BUN/Creatinine Ratio 7.8 (8-20); Calcium 8.6 mg/dL (8.6-10.3); EGFR African American 150.9 (>60); EGFR Non-African American 124.7 (>60)
[2019-04-07] MEDS: Mometasone 220 MCG MDI INH SCH ×2 (08:01→19:57)
[2019-04-07] MEDS: Tiotropium Brom/Olodaterol MDI INH SCH (08:01)
[2019-04-07] MEDS: Albuterol HFA INHALER* 8 gm MDI INH PRN (08:02)
[2019-04-07] MEDS: busPIRone TAB* 10 MG PO SCH ×2 (08:40→20:19)
[2019-04-07] MEDS: Calcium/Vitamin D TAB 250/125* TAB PO SCH ×2 (08:40→20:19)
--- NOTE | 2019-04-07 10:48 | PN ---
Subjective Date of Service: 04/07/19 Interval History: Pt c/o "sore back" in the area of psoas abscess aspiration Objective Active Medications: Acetaminophen (Tylenol Tab*) 650 mg PO Q4H PRN PRN Reason: PAIN-MILD/TEMP >/= 100.4 Last Admin: 04/05/19 21:39 Dose: 650 mg Al Hydrox/Mg Hydrox/Simethicone (Maalox Plus*) 30 ml PO Q6H PRN PRN Reason: INDIGESTION Albuterol (Ventolin Hfa Inhaler*) 2 puff INH Q4H PRN PRN Reason: SOB/WHEEZING Last Admin: 04/07/19 08:02 Dose: 2 puff Albuterol/Ipratropium (Duoneb (Albuterol 2.5 Mg/Ipratropium 0.5 Mg)) 1 neb INH Q4H PRN PRN Reason: SOB/WHEEZING Last Admin: 04/05/19 08:38 Dose: 1 neb Benzonatate (Tessalon Cap*) 100 mg PO BID PRN PRN Reason: COUGH Last Admin: 04/02/19 09:04 Dose: 100 mg Buspirone HCl (Buspar Tab*) 10 mg PO BID [facility] Last Admin: 04/07/19 08:40 Dose: 10 mg Calcium/Vitamin D (Oscal D Tab 250/125*) 1 tab PO BID [facility] Last Admin: 04/07/19 08:40 Dose: 1 tab Escitalopram Oxalate (Lexapro *) 10 mg PO 2100 [facility] Last Admin: 04/06/19 22:02 Dose: 10 mg Heparin Sodium (Porcine) (Heparin Vial(*)) 5,000 units SUBCUT Q8HR [facility] Last Admin: 04/07/19 05:46 Dose: Not Given Piperacillin Sod/Tazobactam (Sod 3.375 gm/ Sodium Chloride) 100 mls @ 25 mls/ hr IVPB Q8H [facility] Last Admin: 04/07/19 05:47 Dose: 25 mls/hr Mometasone Furoate (Asmanex 220 Mcg Mdi *) 2 puff INH BID [facility] Last Admin: 04/07/19 08:01 Dose: 2 puff Morphine Sulfate (Morphine Inj (Syringe))*) 2 mg IV Q2H PRN PRN Reason: PAIN - SEVERE Last Admin: 04/07/19 08:47 Dose: 2 mg Ondansetron HCl (Zofran Inj*) 4 mg IV Q4H PRN PRN Reason: NAUSEA/VOMITING Last Admin: 03/31/19 22:30 Dose: 4 mg Oxycodone HCl (Roxycodone Tab*) 5 mg PO Q4H PRN PRN Reason: PAIN - MODERATE Pharmacy Consult (Zosyn Per Pharmacy*) 1 note FOLLOW UP .ZOSYN PER [facility]ARMACY [facility] Tiotropium [place]/Olodaterol (Stiolto Respimat Inh [place] (60 Puff)) 2 puff INH DAILY [facility] Last Admin: 04/07/19 08:01 Dose: 2 puff Vital Signs - 8 hr 04/07/19 04/07/19 04/07/19 03:30 03:55 05:41 Temperature 99.1 F Pulse Rate 71 Respiratory 18 16 16 Rate Blood Pressure 131/68 (mmHg) O2 Sat by Pulse 98 Oximetry 04/07/19 04/07/19 04/07/19 07:17 08:30 08:47 Temperature 98.4 F Pulse Rate 64 Respiratory 16 16 16 Rate Blood Pressure 134/64 (mmHg) O2 Sat by Pulse 98 Oximetry Oxygen Devices in Use Now: Nasal Cannula Appearance: 54 yo F in nAD, aAOx3 Eyes: No Scleral Icterus, PERRLA Ears/Nose/Mouth/Throat: NL Teeth, Lips, Gums, Mucous Membranes Moist Neck: NL Appearance and Movements; NL JVP, Trachea Midline Respiratory: Symmetrical Chest Expansion and Respiratory Effort, Clear to Auscultation Cardiovascular: NL Sounds; No Murmurs; No JVD, RRR Abdominal: NL Sounds; No Tenderness; No Distention, - - back : mild tenderness to palpationa to left of lumbar spine Lymphatic: No Cervical Adenopathy Extremities: No Edema, No Clubbing, Cyanosis Skin: No Nodules or Sclerosis, - - ecchymosis on left shoulder Neurological: Alert and Oriented x 3, NL Muscle Strength and Tone Result Diagrams: 04/07/19 06:48 04/07/19 06:48 Microbiology and Other Data: Microbiology 03/31/19 08:46 Gram Stain - Final Sputum 03/30/19 11:20 Blood Culture - Preliminary Blood Venous No Growth Day 1 03/30/19 03:46 Urine Culture - Final Urine No Growth (<1,000 CFU/mL) 03/30/19 15:36 Gram Stain - Final Sputum 03/30/19 17:15 Stool Gross Appearance - Final Stool C. difficile DNA Amplification - Final 027 Presumptive NEGATIVE Toxigenic C.diff NEGATIVE 03/30/19 15:00 Legionella Urinary Antigen - Final Urine Negative Legionella Antigen Streptococcus pneumoniae Ag Screen - Final Negative S. pneumo Antigen 03/30/19 03:46 Nasal Screen MRSA (PCR) - Final Nasal Mrsa Not Detected Assess/Plan/Problems-Billing Assessment: 54 yof PMHx COPD presents to ER from [place] requiring Levophed for septic shock, suspected to be d/t pneumonia. - Patient Problems (1) Psoas abscess, left Comment: -Pt with L psoas fluid collection noted on CT -CT-guided abscess drainage 04/04 -Fluid cx NTD -Continue zosyn until ID recommmend outpatient daily infusion tx that pt could continue at home -PICC placed 04/07/19 (2) Bacteremia Comment: -BC with fusobacterium in 2/4 bottles; suspect respiratory source -cont zosyn -MRI T, L spine without abscess -CT abdomen, pelvis showed L psoas abscess (3) COPD exacerbation Comment: -Continue nebulizers -contflutter valve, tessalon perles -not in exacerbation today (4) Interstitial edema Comment: -CXR shows R pleural effusion, interstitial edema -IV lasix 40 x2 given -SOB resolved, but pt may need home 02 set up (5) Low back pain Status: Acute Comment: -Neurosurgery consulted; thank you for recommendations -MRI L spine: negative for abscess; positive for L4-L5 nerve root impingement -MRI T spine: spondylopathy; negative for abscess -L spine flex/ext, scoliosis series: DDD, osteoarthritis, thoracolumbar scoliosis -PT, OT ordered -Recommend outpatient follow up with Dr. Cardoza (6) Septic shock Comment: -BC + fusobacterium -Septic shock resolved (7) Tobacco abuse Comment: -Pt refusing nicotine replacement (8) DVT prophylaxis Comment: -Heparin Status and Disposition: Inpatient. Medically ready for discharge, awaiting ID recommendations
--- NOTE | 2019-04-07 11:43 | PN ---
Progress Note - Progress Note Date of Service: 04/07/19 SOAP: Subjective: CC: Bacteremia and psoas abscess HPI: Ms. 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 Denies fever, chills, nausea, vomiting, diarrhea, or ABD pain. Continues to have back pain, that is unchanged. Objective: Vital Signs - 8 hr 04/07/19 04/07/19 04/07/19 03:55 05:41 07:17 Temperature 99.1 F 98.4 F Pulse Rate 71 64 Respiratory 16 16 16 Rate Blood Pressure 131/68 134/64 (mmHg) O2 Sat by Pulse 98 98 Oximetry Physical Exam: General: NAD, standing in room Neurological: Alert and Oriented x3 HEENT: Moist MM, no thrush Cardiovascular: Heart rate regular Respiratory: Lung sounds clear Abdominal: Bowel sounds present; ABD soft, non tender, and non distended MSK: No tenderness with palpation of the neck, back or spine Skin: No rash Laboratory Results - last 24 hr 04/07/19 04/07/19 06:48 06:48 WBC 10.6 RBC 3.43 L Hgb 11.8 L Hct 34 L MCV 99 H MCH 35 H MCHC 35 RDW 12 Plt Count 395 MPV 6.9 L Neut % (Auto) 76.6 Lymph % (Auto) 12.1 [place] % (Auto) 10.2 Eos % (Auto) 0.8 Baso % (Auto) 0.3 Absolute Neuts (auto) 8.1 H Absolute Lymphs (auto) 1.3 Absolute Monos (auto) 1.1 H Absolute Eos (auto) 0.1 Absolute Basos (auto) 0.0 Absolute Nucleated RBC 0.0 Immature Gran % 1.0 Neutrophils % 78.0 Band Neutrophils % 1.0 Lymphocytes % 11.0 Monocytes % 10.0 Nucleated RBC % 0.0 Normal RBC Morphology Normal Sodium 136 Potassium 4.0 Chloride 99 L Carbon Dioxide 32 Anion Gap 5 BUN 4 L Creatinine 0.51 Est GFR ( Amer) 150.9 Est GFR (Non-Af Amer) 124.7 BUN/Creatinine Ratio 7.8 L Glucose 96 Calcium 8.6 Microbiology 04/04/19 14:00 Gram Stain - Final Misc Fluid (See Comment) - Abscess Body Fluid Culture - Preliminary No Growth Day 3 03/30/19 11:20 Blood Culture - Final Blood Venous No Growth Day 5 03/31/19 08:46 Gram Stain - Final Sputum Sputum Culture - Final Normal Mame YEAST 03/30/19 17:15 Stool Gross Appearance - Final Stool C. difficile DNA Amplification - Final 027 Presumptive NEGATIVE Toxigenic C.diff NEGATIVE 03/30/19 15:36 Gram Stain - Final Sputum 03/30/19 15:00 Legionella Urinary Antigen - Final Urine Negative Legionella Antigen Streptococcus pneumoniae Ag Screen - Final Negative S. pneumo Antigen 03/30/19 03:46 Urine Culture - Final Urine No Growth (<1,000 CFU/mL) 03/30/19 03:46 Nasal Screen MRSA (PCR) - Final Nasal Mrsa Not Detected Assessment: 1. Fusobacterium bacteremia and back pain. MRI with no spine infection. ABD/ pelvis CT with psoas abscess. Afebrile and no leukocytosis. 2. Psoas abscess. ABD/Pelvis CT showed a psoas abscess, S/P CT guided aspiration of 6 ml bloody fluid. Fluid culture with no growth on day 3. 3. PCN allergy (told by parents she was allergic). Tolerating Zosyn without side effects. Plan: Continue Zosyn for now. She will need an extended course of IV ABX in the setting of a psoas abscess. Will change to Ertapenum 1 gm IV daily for discharge , will plan for 4-6 weeks. Day 8-42. She will need to have weekly labs while on IV ABX: CBC, CMP, and CRP. Followup with ID outpatient in 1-2 weeks.
[2019-04-07] MEDS: Escitalopram * 10 MG TAB PO SCH (20:19)
[2019-04-07] MEDS: oxyCODONE TAB* 5 MG TAB PO PRN (20:20)
[2019-04-08] MEDS: Heparin VIAL(*) 5000 UNITS/ML VIAL (FIVE THOUSAND) SUBCUT SCH (06:04)
[2019-04-08] MEDS: Piperacillin/Tazobac ADVAN(*) 3.375 GM in NS 0.9% 100 ML* 100 ML IVPB SCH (06:05)
[2019-04-08] MEDS: oxyCODONE TAB* 5 MG TAB PO PRN ×2 (06:09→12:12)
[2019-04-08] MEDS: Calcium/Vitamin D TAB 250/125* TAB PO SCH (08:08)
[2019-04-08] MEDS: busPIRone TAB* 10 MG PO SCH (08:08)
[2019-04-08] MEDS: Mometasone 220 MCG MDI INH SCH (08:26)
[2019-04-08] MEDS: Albuterol HFA INHALER* 8 gm MDI INH PRN (08:26)
[2019-04-08] MEDS: Tiotropium Brom/Olodaterol MDI INH SCH (08:30)
[2019-04-08 10:05] VITALS: BP 127/58
--- NOTE | 2019-04-08 10:13 | PN ---
Progress Note - Progress Note Date of Service: 04/08/19 SOAP: Subjective: CC: Bacteremia and psoas abscess HPI: Ms. 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 Denies fever, chills, nausea, vomiting, diarrhea, or ABD pain. Continues to have back pain, that is unchanged. Denies weakness in LEs. Reports a few loose stools daily, but states this is her baseline. Objective: Vital Signs - 8 hr 04/08/19 04/08/19 04/08/19 08:25 08:29 10:05 Temperature 98.5 F Pulse Rate 65 88 Respiratory 18 18 18 Rate Blood Pressure 127/58 (mmHg) O2 Sat by Pulse 98 96 Oximetry Physical Exam: General: NAD, sitting up in bed Neurological: Alert and Oriented x4 HEENT: Moist MM, no thrush Cardiovascular: Heart rate regular Respiratory: Lung sounds clear Abdominal: Bowel sound present; ABD soft, non tender and non distended MSK: No tenderness with palpation of neck, back or spine. Moves LEs Skin: No rash. PICC to right UE, site benign Laboratory Last Values WBC 10.6 10^3/uL (3.5-10.8) 04/07/19 06:48 RBC 3.43 10^6 /uL (3.70-4.87) L 04/07/19 06:48 Hgb 11.8 g/dL (12.0-16.0) L 04/07/19 06:48 Hct 34 % (35-47) L 04/07/19 06:48 MCV 99 fL (80-97) H 04/07/19 06:48 MCH 35 pg (27-31) H 04/07/19 06:48 MCHC 35 g/dL (31-36) 04/07/19 06:48 RDW 12 % (10-15) 04/07/19 06:48 Plt Count 395 10^3/uL (150-450) 04/07/19 06:48 MPV 6.9 fL (7.4-10.4) L 04/07/19 06:48 Neut % (Auto) 76.6 % 04/07/19 06:48 Lymph % (Auto) 12.1 % 04/07/19 06:48 [place] % (Auto) 10.2 % 04/07/19 06:48 Eos % (Auto) 0.8 % 04/07/19 06:48 Baso % (Auto) 0.3 % 04/07/19 06:48 Absolute Neuts (auto) 8.1 10^3/ul (1.5-7.7) H 04/07/19 06:48 Absolute Lymphs (auto) 1.3 10^3/ul (1.0-4.8) 04/07/19 06:48 Absolute Monos (auto) 1.1 10^3/ul (0-0.8) H 04/07/19 06:48 Absolute Eos (auto) 0.1 10^3/ul (0-0.6) 04/07/19 06:48 Absolute Basos (auto) 0.0 10^3/ul (0-0.2) 04/07/19 06:48 Absolute Nucleated RBC 0.0 10^3/ul 04/07/19 06:48 Immature Gran % 1.0 % (0-9) 04/07/19 06:48 Neutrophils % 78.0 % 04/07/19 06:48 Band Neutrophils % 1.0 % (0-8) 04/07/19 06:48 Lymphocytes % 11.0 % 04/07/19 06:48 Monocytes % 10.0 % 04/07/19 06:48 Metamyelocytes % 1.0 % (0-2) 04/04/19 06:02 Nucleated RBC % 0.0 04/07/19 06:48 Normal RBC Morphology Normal (Normal) 04/07/19 06:48 Polychromasia 1+ 04/04/19 06:02 INR (Anticoag Therapy) 1.21 (0.82-1.09) H 04/04/19 12:20 Sodium 136 mmol/L (135-145) 04/07/19 06:48 Potassium 4.0 mmol/L (3.5-5.0) 04/07/19 06:48 Chloride 99 mmol/L (101-111) L 04/07/19 06:48 Carbon Dioxide 32 mmol/L (22-32) 04/07/19 06:48 Anion Gap 5 mmol/L (2-11) 04/07/19 06:48 BUN 4 mg/dL (6-24) L 04/07/19 06:48 Creatinine 0.51 mg/dL (0.51-0.95) 04/07/19 06:48 Est GFR ( Amer) 150.9 (>60) 04/07/19 06:48 Est GFR (Non-Af Amer) 124.7 (>60) 04/07/19 06:48 BUN/Creatinine Ratio 7.8 (8-20) L 04/07/19 06:48 Glucose 96 mg/dL (70-100) 04/07/19 06:48 Lactic Acid 1.1 mmol/L (0.5-2.0) 03/30/19 11:20 Calcium 8.6 mg/dL (8.6-10.3) 04/07/19 06:48 Total Bilirubin 0.50 mg/dL (0.2-1.0) 04/03/19 06:11 AST 37 U/L (13-39) 04/03/19 06:11 ALT 47 U/L (7-52) 04/03/19 06:11 Alkaline Phosphatase 76 U/L (34-104) 04/03/19 06:11 B-Natriuretic Peptide 638 pg/mL (<=100) H 04/02/19 12:40 Total Protein 5.6 g/dL (6.4-8.9) L 04/03/19 06:11 Albumin 2.7 g/dL (3.2-5.2) L 04/03/19 06:11 Globulin 2.9 g/dL (2-4) 04/03/19 06:11 Albumin/Globulin Ratio 0.9 (1-3) L 04/03/19 06:11 Cortisol 32.42 mcg/dL 03/30/19 11:20 Urine Color Yellow 03/30/19 03:46 Urine Appearance Clear 03/30/19 03:46 Urine pH 5.0 (5-9) 03/30/19 03:46 Ur Specific [place] 1.011 (1.010-1.030) 03/30/19 03:46 Urine Protein Negative (Negative) 03/30/19 03:46 Urine Ketones Trace (Negative) A 03/30/19 03:46 Urine Blood 2+ (Negative) A 03/30/19 03:46 Urine Nitrate Negative (Negative) 03/30/19 03:46 Urine Bilirubin Negative (Negative) 03/30/19 03:46 Urine Urobilinogen Negative (Negative) 03/30/19 03:46 Ur Leukocyte Esterase Negative (Negative) 03/30/19 03:46 Urine WBC (Auto) Trace(0-5/hpf) (Absent) 03/30/19 03:46 Urine RBC (Auto) Trace(0-2/hpf) (Absent) 03/30/19 03:46 Urine Bacteria Absent (Absent) 03/30/19 03:46 Urine Glucose Negative (Negative) 03/30/19 03:46 Vancomycin Trough 10.1 mcg/mL 04/01/19 14:44 Influenza A (Rapid) Negative (Negative) 03/31/19 19:35 Influenza B (Rapid) Negative (Negative) 03/31/19 19:35 Microbiology 04/04/19 14:00 Gram Stain - Final Misc Fluid (See Comment) - Abscess Body Fluid Culture - Final No Growth Day 4 03/30/19 11:20 Blood Culture - Final Blood Venous No Growth Day 5 03/31/19 08:46 Gram Stain - Final Sputum Sputum Culture - Final Normal Mame YEAST 03/30/19 17:15 Stool Gross Appearance - Final Stool C. difficile DNA Amplification - Final 027 Presumptive NEGATIVE Toxigenic C.diff NEGATIVE 03/30/19 15:36 Gram Stain - Final Sputum 03/30/19 15:00 Legionella Urinary Antigen - Final Urine Negative Legionella Antigen Streptococcus pneumoniae Ag Screen - Final Negative S. pneumo Antigen 03/30/19 03:46 Urine Culture - Final Urine No Growth (<1,000 CFU/mL) 03/30/19 03:46 Nasal Screen MRSA (PCR) - Final Nasal Mrsa Not Detected Assessment: 1. Fusobacterium bacteremia and back pain. MRI with no spine infection. ABD/ pelvis CT with psoas abscess. Afebrile and no leukocytosis. 2. Psoas abscess. ABD/Pelvis CT showed a psoas abscess, S/P CT guided aspiration of 6 ml bloody fluid. Fluid culture with no growth on day 4. 3. PCN allergy (told by parents she was allergic). Tolerating Zosyn without side effects. Plan: Discontinue Zosyn. Will start Ertapenum 1 gm IV daily, starting today, will plan for 4-6 weeks. Day 03/15-. She will need to have weekly labs while on IV ABX: CBC, CMP, and CRP. Followup with ID outpatient in 1-2 weeks. 25 minutes of floor time > 50% was spent with the patient and discussing ABX therapy, when to call the office and followup. She will call the office for fever, diarrhea, or rash.
[2019-04-08] MEDS ORDERED: Ertapenem* 1 GM in NS 0.9% 50 ML* 50 ML IVPB SCH (12:00)
--- NOTE | 2019-04-08 14:12 | DS ---
DISCHARGE SUMMARY: DATE OF ADMISSION: 03/30/19 DATE OF DISCHARGE: 04/08/19 PRIMARY CARE PHYSICIAN: Aury Georges DO. OTHER PHYSICIANS: Rolando Larkin MD and Geovany Cardoza MD. ATTENDING PHYSICIAN: Dr. Yulisa Solis * (dictated by PORFIRIO Mckeon). PRIMARY DIAGNOSES: 1. Left psoas abscess. 2. 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 3. Septic shock. 4. Chronic obstructive pulmonary disease exacerbation. 5. Degenerative disk disease. 6. Acute hypoxic respiratory failure likely due to chronic obstructive pulmonary disease exacerbation, possible pneumonia. 7. Possible pneumonia. SECONDARY DIAGNOSIS: Chronic obstructive pulmonary disease. STUDIES WHILE IN THE HOSPITAL: 1. Lumbar spine MRI. Impression: Degenerative disk disease at L5 to S1 with broad-based protrusion flattening the thecal sac L4 to L5 central to left paracentral disk protrusion, which likely indents the left descending L5 nerve root as well as impingement upon the left exiting L4 nerve root, degenerative disk disease at L2 to L3. No abnormal enhancing lesion to suggest epidural abscess or osteomyelitis is noted. 2. Thoracic spine MRI. Impression: Mild multilevel thoracic spondylopathy. No MRI findings to correlate with the patient's symptomatology, specifically no epidural abscess, bilateral pleural effusions with associated pneumonia versus atelectasis. 3. L-spine with bending. Impression: Degenerative disk disease and osteoarthritis most pronounced along the lower lumbar spine. 4. Scoliosis series. Impression: Thoracolumbar scoliosis as described above. 5. Transthoracic echocardiogram. Summary: LV systolic function vigorous. Estimated EF 60% to 65%. LV diastolic function normal. RV mildly dilated, mildly increased wall thickness. Systolic function mildly reduced. Ventricular septal flattening of interventricular septum consistent with RV volume or pressure overload, [id number] MR, mild IN, uvbitl-kx-sqvtvkyrdu increased pulmonary artery systolic pressure. 6. CT abdomen and pelvis: Impression: Focal degenerative disk disease at L4- L5 and L5-S1. In the prevertebral region, there is mild diffuse soft tissue thickening and probable small fluid collection medial to left psoas muscle. Please correlate for any intervention in this region, which would be giving rise to a psoas abscess, minimal air in the bladder probably from instrumentation, no wall thickening. PROCEDURES WHILE IN THE HOSPITAL: Left psoas muscle abscess, drainage, CT guided. Impression: Successful CT guided aspiration, fluid collection medial to the left psoas muscle at the L5 level. DISCHARGE MEDICATIONS: Home medications: 1. Albuterol 2.5 mg/3 mL inhalation nebulizer q.4 hours p.r.n. shortness of breath and wheeze. 2. Beclomethasone 80 mcg MDI 2 puff inhalation b.i.d. 3. Buspirone 10 mg p.o. b.i.d. 4. Escitalopram 10 mg p.o. daily. 5. Bevespi Aerosphere inhaler 2 puff inhalation b.i.d. New home medications: 1. Oxycodone 5 mg p.o. q.6 hours p.r.n., eqehgwub-ku-pgyvug pain, MDD 4. 2. Ertapenem 1 g IV q.24 hours. HISTORY OF PRESENT ILLNESS/HOSPITAL COURSE: Ms. Alvarez is a 54-year-old female with past medical history of COPD, who presented to [facility] with fever of 105.6 degrees on 03/30/19. For full and complete details, please see the history and physical dictated by Dr. Archana Smalls. But in short, the patient presented with these symptoms and notes that the day prior, she developed generalized weakness, chills, fever. At [facility], she received 3 L IV fluids and was placed on Levophed. She was found to have leukocytosis, no lactic acidosis. She was transferred to [facility] for ICU admission for continued Levophed for diagnosis of septic shock. Possible sources of infection were evaluated. It was suspected that the patient had pneumonia. For pneumonia, she was given levofloxacin prior to transfer. She was eventually transitioned to ceftriaxone and azithromycin due to suspected pneumonia. The patient was eventually weaned off her Levophed and her blood pressure remained stable throughout her stay. The patient continued to complain of severe lower back pain. An MRI of the low back was negative for abscess. MRI of the thoracic spine negative for abscess. MRI of the lumbar spine showed degenerative disk disease. Neurosurgery was consulted and recommended outpatient followup. CT of the abdomen and pelvis was ordered and revealed a left psoas abscess. Interventional Radiology was consulted and recommended CT-guided drainage, which was performed. The patient continues to have low back pain, but this has improved somewhat since admission. She will follow up with Neurosurgery outpatient regarding further management. The patient was noted to have bacteremia in 2 out of 4 bottles from [facility]. 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 The patient was started on Zosyn for coverage of fusobacterium. A PICC line was placed. She was eventually transitioned to 1 g IV once daily ertapenem, which she will continue for 4 to 6 weeks. Recommend weekly CBC, CMP, CRP. She will follow up with ID in 1 to 2 weeks. The patient was noted to have oxygen requirements throughout her stay. She suffered from acute hypoxic respiratory failure. This was likely in the setting of COPD exacerbation and possible pneumonia. At this time, she has been weaned down to 3 L O2 per nasal cannula, but is still requiring supplemental oxygen. She will be sent home on oxygen. Currently, the patient reports improvement in her shortness of breath. She states that her breathing is "awesome." She continues to have lower back pain in the lumbar region. She denies cough, fever, chills, sweats. She has had improvement in her ambulation although she notes that she finds the walker very helpful. She has no other complaints today. She feels that her strength is back to normal and no longer complains of generalized weakness. REVIEW OF SYSTEMS: A 14-point review of systems has been performed and all the pertinent positives and negatives are in the HPI. All other systems are negative. PHYSICAL EXAMINATION: General: Ms. Alvarez is a well-developed, well-nourished , middle-aged white woman who is sitting at the edge of the bed with the lower extremities on the ground. She appears to be in no acute distress. She appears somewhat older than stated age. HEENT: PERRL, EOMI. Nonicteric sclerae. Hearing is grossly intact. Oral mucous membranes are moist. There are no lesions. Her pharynx is clear. The tongue is at midline. Palate elevates symmetrically. Cardiovascular: Regular rate and rhythm with S1, S2 present without murmurs, rubs, clicks, or gallops. There is no JVD. There is no peripheral edema. Pulmonary: Symmetrical chest expansion without the use of accessory muscles. Lungs: Clear to auscultation bilaterally without rhonchi, wheezes, or rubs. No digital clubbing or cyanosis. Abdomen: Bowel sounds in all quadrants, soft, nontender to palpation. Neuro: The patient is awake. She is alert and oriented x3. Cranial nerves grossly intact. She is able to move all of her extremities with a strength of 5/5 bilaterally in the upper and lower extremities. Equal plug grower strength. Steady gait without impairment with the use of walker. DISCHARGE PLAN: Ms. Alvarez will be discharged to home. CONDITION: Good. DIET: Heart healthy. ACTIVITY: As tolerated. MEDICATIONS: 1. Continue pain management p.r.n. 2. Follow up with primary care physician for refills. 3. Continue ertapenem IV antibiotic daily at [facility]. EDUCATION: 1. Weekly CBC, CMP, CRP. 2. Follow up with primary care provider in 4 to 7 days to discuss recent hospitalization, pain, and medication refill as needed. 3. Follow up with [facility] for continued antibiotics. 4. Follow up with Neurosurgery, Dr. Cardoza, in 3 to 5 weeks. 5. Follow up with Infectious Disease, Dr. Larkin in 1 to 2 weeks. Office will call with the appointment date and time. 6. Return to the ER or nearest hospital if you experience any return or worsening of symptoms, chest pain or discomfort, shortness of breath, dizziness , lightheadedness, loss of consciousness, high fevers, chills, night sweats, or any other worrisome signs or symptoms. This is a summarized report of a complex medical history and hospital stay. For further details, please see the entire medical record. TIME SPENT: Approximately 35 minutes was spent on this discharge, greater than half that time was spent [id number] with the patient discussing discharge plans and instructions. PORFIRIO CUEVAS [id number]/[facility] #: [id number] ANTHONY
== END 2019-04-08 13:15 | disposition home or self-care (01) | DRG 720 ==
LOC: ICU 03:04 → MERGE 03:04 → MED 22:23
PROVIDERS: ADMIT Internal Medicine; ATTEND Internal Medicine
PROC: 02HV33Z Insertion of Infusion Device into Superior Vena Cava, Percutaneous Approach (ICD-10-PCS; 2019-03-30)
PROC: 3E043XZ Introduction of Vasopressor into Central Vein, Percutaneous Approach (ICD-10-PCS; 2019-03-30)
PROC: 0K9P3ZZ Drainage of Left Hip Muscle, Percutaneous Approach (ICD-10-PCS; principal; 2019-04-04)
DX: A41.59 Other Gram-negative sepsis (principal); R65.21 Severe sepsis with septic shock; J18.9 Pneumonia, unspecified organism; K68.12 Psoas muscle abscess; J96.01 Acute respiratory failure with hypoxia; J44.0 Chronic obstructive pulmonary disease with (acute) lower respiratory infection; J44.1 Chronic obstructive pulmonary disease with (acute) exacerbation; J90 Pleural effusion, not elsewhere classified; M51.36 Other intervertebral disc degeneration, lumbar region; M51.37 Other intervertebral disc degeneration, lumbosacral region; M48.061 Spinal stenosis, lumbar region without neurogenic claudication; M48.07 Spinal stenosis, lumbosacral region; F17.210 Nicotine dependence, cigarettes, uncomplicated; D69.6 Thrombocytopenia, unspecified; M54.5 Low back pain; E66.3 Overweight; E87.6 Hypokalemia; M41.85 Other forms of scoliosis, thoracolumbar region; M47.816 Spondylosis without myelopathy or radiculopathy, lumbar region; Z88.0 Allergy status to penicillin; Z80.41 Family history of malignant neoplasm of ovary; Z68.27 Body mass index [BMI] 27.0-27.9, adult
CPT/HCPCS: 36415; 49406; 71046; 72082; 72114; 72157; 72158; 74177; 80048; 80053; 80202; 81003; 81015; 82533; 82565; 83605; 83880; 84520; 85025; 85610; 87040; 87070; 87086; 87205; 87493; 87641; 87899; 93306; 94640; A9270-GY; A9579; C1751; C2613; C8929; J0456; J0692; J0696; J1335; J1644; J1940; J2270; J2405; J2543; J3010; J3370; J3480; J3535; Q9967

== ENCOUNTER 2019-05-14 19:31 | Inpatient (IN) | payer BC ==
--- NOTE | 2019-05-14 20:10 | ED ---
Back Pain - HPI Summary HPI Summary: Patient is a 54 y/o F presenting to the ED for a chief complaint of lower back pain. Patient was sent to the ED from Dr. Genao's office for further evaluation. Patient is present with her daughter and . Patient was recently discharged from [facility] on 05/09/19 for a psoas abscess and sepsis. Patient s states the patient had an echocardiogram when admitted to [facility]. Patient was using a walker after her discharge. Dr. Genao was concerned for an infection of the spine. Patient complains of lower back pain radiating to the right LE with inability to bear weight due to the pain. She describes the back pain as a burning sensation. She admits nausea and numbness and paresthesia from the right knee down to the right LE. She also notes bowel incontinence depending on what she eats or drinks, but she states she is aware when she needs to have a bowel movement. Patient denies fever, chills, urinary incontinence, or saddle anesthesia. She denies any aggravating or alleviating factors. PMHx is significant for COPD. Patient admits tobacco use, rare alcohol use, but denies drug use including IV drug use. She uses oxygen at home as needed. Patient took morphine on 05/14/19. Medications reviewed. Allergies noted. - History of Current Complaint Chief Complaint: EDGeneral Stated Complaint: F/U ADDITIONAL TESTING PER PT Time Seen by Provider: 05/14/19 19:49 Hx Obtained From: Patient Onset/Duration: Sudden Onset, Still Present Onset/Duration: Atraumatic, Still Present Timing: Constant Back Pain Location: Is Discrete @ - Lower back Severity Initially: Moderate Severity Currently: Moderate Pain Intensity: 6 Pain Scale Used: 0-10 Numeric Aggravating Symptom(s): Nothing Alleviating Symptom(s): Nothing Associated Signs And Symptoms: Positive: Numbness - Right knee down the right LE , Tingling - Right knee down the right LE, Bowel Incontinence, Pain with Weight Bearing. Negative: Bladder Incontinence - Allergies/Home Medications Allergies/Adverse Reactions: Allergies Allergy/AdvReac Type Severity Reaction Status Date / Time nabumetone [From Relafen] Allergy Fatigue Verified 05/14/19 19:43 Penicillins Allergy Unknown Verified 05/14/19 19:43 Reaction Details PMH/Surg Hx/FS Hx/Imm Hx Previously Healthy: Yes Endocrine/Hematology History: Denies: Hx Diabetes Cardiovascular History: Denies: Hx Hypercholesterolemia, Hx Hypertension, Hx Pacemaker/ICD Respiratory History: Reports: Hx Asthma, Hx Chronic Obstructive Pulmonary Disease (COPD) Musculoskeletal History: Reports: Hx Back Problems Sensory History: Denies: Hx Contacts or Glasses, Hx Legally Blind, Hx Deafness, Hx Hearing Aid Opthamlomology History: Denies: Hx Contacts or Glasses, Hx Legally Blind EENT History: Denies: Hx Deafness Psychiatric History: Denies: Hx Panic Disorder - Surgical History Surgical History: Yes Surgery Procedure, Year, and Place: rt carpal tunnel Infectious Disease History: No Infectious Disease History: Denies: Traveled Outside the [place] in Last 30 Days - Family History Known Family History: Negative: Diabetes - Social History Occupation: Unemployed Lives: With Family Alcohol Use: Occasionally Hx Substance Use: No Substance Use Type: Reports: None Hx Tobacco Use: Yes Smoking Status (MU): Current Every Day Smoker Type: Cigarettes Amount Used/How Often: 1/2 pack per day since 13 years old Review of Systems Negative: Fever, Chills Positive: Nausea Positive: incontinence - Positive bowel; negative urinary Positive: Myalgia - Lower back pain radiating down the right LE Neurological: Other - Negative saddle anesthesia Positive: Paresthesia - Right knee down the right LE, Numbness - Right knee down the right LE All Other Systems Reviewed And Are Negative: Yes Physical Exam - Summary Physical Exam Summary: Constitutional: Well-developed, Well-nourished, Alert. (-) Distressed Skin: Warm, Dry HENT: Normocephalic; Atraumatic Eyes: Conjunctiva normal Neck: Musculoskeletal ROM normal neck. (-) JVD, (-) Stridor, (-) Tracheal deviation Cardio: Rhythm regular, rate normal, Heart sounds normal; Intact distal pulses; Radial pulses are 2+ and symmetric. (-) Murmur Pulmonary/Chest wall: Effort normal. (-) Respiratory distress, (-) Wheezes, (-) Rales Abd: Soft, (-) tenderness, (-) Distension, (-) Guarding, (-) Rebound Musculoskeletal: (-) Edema. 3/5 strength with abduction at the hip, 5/5 strength with planter and dorsiflexion of foot. 4/5 strength with knee flexion, decreased sensation in right LE compared to left LE, point tenderness in the left lateral spine, no midline tenderness. Lymph: (-) Cervical adenopathy Neuro: Alert, Oriented x3 Psych: Mood and affect Normal Triage Information Reviewed: Yes Vital Signs On Initial Exam: Initial Vitals Temp Pulse Resp BP Pulse Ox 98.9 F 98 16 100/60 88 05/14/19 19:35 05/14/19 19:35 05/14/19 19:35 05/14/19 19:35 05/14/19 19:35 Vital Signs Reviewed: Yes Procedures - Sedation Patient Received Moderate/Deep Sedation with Procedure: No Diagnostics - Vital Signs Vital Signs Temp Pulse Resp BP Pulse Ox 05/14/19 19:35 98.9 F 98 16 100/60 88 - Laboratory Result Diagrams: 05/14/19 20:37 05/14/19 20:37 Lab Statement: Any lab studies that have been ordered have been reviewed, and results considered in the medical decision making process. Back Pain Course/Dx - Course Course Of Treatment: Patient is here with worsening lower back pain and right lower extremity symptoms. Patient has a complex medical history with recent admission for a similar loss abscess. Patient was treated with IV antibiotics per Dr. Vazquez. Patient's CRP was getting better until a large elevation in her CRP 2 days ago. Given patient's worsening neurologic symptoms and back pain , patient had a CT scan which showed some swelling around L4. Patient was sent here by Dr. Vazquez to evaluate for epidural abscess versus discitis. Patient does have right lower extremity weakness and numbness compared to the left lower extremity. Patient had lab work sent which showed a CRP of 35 with no leukocytosis. Patient was signed out to Dr. Rivas pending a MRI result. Per infectious disease, if patient has an epidural abscess she will likely need transfer to a place with neurosurgery as Dr. Mike is on vacation for . If patient has no epidural abscess, she should receive IV vancomycin and cefepime and will be admitted to the medicine team - Diagnoses Provider Diagnoses: Back pain, Lower extremity weakness, Psoas abscess Discharge ED - Sign-Out/Discharge Documenting (check all that apply): Sign-Out Patient Signing out patient TO: Cherise Rivas - Patient is a sign out at 22:[address] Cherise Rivas MD from Dr. Geovani Alcantara MD at shift change, pending lumbar MRI, thoracic MRI, further workup, and disposition. - Discharge Plan Condition: Stable Referrals: Aury Georges DO [Primary Care Provider] - - Billing Disposition and Condition Condition: STABLE - Attestation Statements Document Initiated by Perezibmehdi: Yes Documenting Scribe: Marie Bernabe Provider For Whom Scribe is Documenting (Include Credential): Geovani Alcantara MD Scribe Attestation: IMarei, scribed for Geovani Alcantara MD on 05/14/19 at 2141. Scribe Documentation Reviewed: Yes Provider Attestation: The documentation as recorded by the Marie gant accurately reflects the service I personally performed and the decisions made by me, Geovani Alcantara MD Status of Scribe Document: Viewed
[2019-05-14 20:52] LABS: ABS Lymphocytes 0.9 10^3/ul (1.0-4.8); ABS Monocytes 0.4 10^3/ul (0-0.8); ABS Neutrophils 2.8 10^3/ul (1.5-7.7); Eosinophil % 0.6 %; Hematocrit 36 % (35-47); Hemoglobin 12.4 g/dL (12.0-16.0); Lymphocyte % 21.8 %; Mean Corpuscular HGB Conc 34 g/dL (31-36); Mean Corpuscular Hemoglobin 33 pg (27-31); Mean Corpuscular Volume 95 fL (80-97); Mean Platelet Volume 6.9 fL (7.4-10.4); Platelet Count 337 10^3/uL (150-450); Red Cell Distribution Width 13 % (10-15); White Blood Count 4.1 10^3/uL (3.5-10.8)
[2019-05-14] MEDS ORDERED: Gadoteridol* (CONTRAST) 279.3 MG/ML 10 ML IV ONE (20:52)
[2019-05-14 21:04] LABS: Albumin 3.3 g/dL (3.2-5.2); Albumin/Globulin Ratio 0.9 (1-3); BUN/Creatinine Ratio 10.9 (8-20); C Reactive Protein 34.2 mg/L (<8.01); Calcium 8.7 mg/dL (8.6-10.3); EGFR Non-African American 140.5 (>60); Globulin 3.5 g/dL (2-4); Total Bilirubin 0.3 mg/dL (0.2-1.0); Total Protein 6.8 g/dL (6.4-8.9)
--- NOTE | 2019-05-14 22:01 | ED ---
Progress - Progress Note Progress Note: Patient is a sign out from Dr. Geovani Alcantara to Dr. Cherise Rivas at end of shift at 2200 on 05/14/19, pending lumbar MRI, thoracic MRI, further workup, and disposition. - Results/Orders Results/Orders: Thoracic spine MRI reveals: 1. No evidence of epidural abscess or other acute abnormality. 2. Widely patent central canal. Lumbar spine MRI reveals: 1. Findings compatible with discitis/osteomyelitis at L4-L5. 2. Associated ventral epidural phlegmon without discrete epidural fluid collection. 3. Inflammatory changes extend to the adjacent paraspinous soft tissues. 1 cm fluid collection involving the adjacent left psoas muscle. Course/Dx - Course Course Of Treatment: Patient is here with worsening lower back pain and right lower extremity symptoms. Patient has a complex medical history with recent admission for a similar loss abscess. Patient was treated with IV antibiotics per Dr. Vazquez. Patient's CRP was getting better until a large elevation in her CRP 2 days ago. Given patient's worsening neurologic symptoms and back pain , patient had a CT scan which showed some swelling around L4. Patient was sent here by Dr. Vazquez to evaluate for epidural abscess versus discitis. Patient does have right lower extremity weakness and numbness compared to the left lower extremity. Patient had lab work sent which showed a CRP of 35 with no leukocytosis. Patient was signed out to Dr. Rivas pending a MRI result. Per infectious disease, if patient has an epidural abscess she will likely need transfer to a place with neurosurgery as Dr. Mike is on vacation for . If patient has no epidural abscess, she should receive IV vancomycin and cefepime and will be admitted to the medicine team - Diagnoses Provider Diagnoses: Back pain, Lower extremity weakness, Psoas abscess - Provider Notifications Discussed Care Of Patient With: Roger Bahena - Hospitalist Time Discussed With Above Provider: 23:04 Instructed by Provider To: Admit As Inpatient - Spoke to Dr. Bahena, who accepts the patient for admission. Admit/Transition Orders Completed By ED Provider: Yes Discharge ED - Sign-Out/Discharge Documenting (check all that apply): Patient Departure - admit, Receiving Sign- Out Receiving patient FROM: Geovani Alcantara - Patient is a sign out from Dr. Geovani Alcantara to Dr. Cherise Rivas at end of shift at 2200 on 05/14/19 - Discharge Plan Condition: Stable Disposition: ADMITTED TO [facility] Referrals: Aury Georges DO [Primary Care Provider] - - Attestation Statements Document Initiated by Scribe: Yes Documenting Scribe: Yo Connolly Provider For Whom Scribe is Documenting (Include Credential): Cherise Rivas MD Scribe Attestation: I, Yo Connolly, scribed for Cherise Rivas MD on 05/14/19 at 2256. Status of Scribe Document: Ready
[2019-05-14 22:05] LABS: Erythrocyte Sed Rate 68 mm/Hr (0-29)
[2019-05-14] MEDS ORDERED: fentaNYL* 50 MCG/ML 2 ML VIAL (100 MCG VIAL) IV SLOW PU ONE (22:27)
[2019-05-14] MEDS ORDERED: Vancomycin(*) 1,000 MG in NS 0.9% 250 ML* 250 ML IV ONE (22:56)
[2019-05-14] MEDS ORDERED: Cefepime(*) 1 GM in NS 0.9% 50 ML* 50 ML IVPB ONE (22:56)
[2019-05-14] MEDS ORDERED: NS 0.9% 50 ML* 50 ML ONE (23:05)
[2019-05-14] MEDS ORDERED: Acetaminophen TAB* 325 MG PO PRN (23:38)
[2019-05-14] MEDS ORDERED: Ondansetron INJ* 2 MG/ML VIAL IV PRN (23:39)
[2019-05-14] MEDS ORDERED: Albuterol 2.5 MG/3 ML NEB.SOL* (0.083%) INH PRN (23:39)
[2019-05-14] MEDS ORDERED: Vancomycin per Pharmacy* NOTE FOLLOW UP SCH (23:45)
--- NOTE | 2019-05-15 00:12 | HP ---
History of Present Illness - History of Present Illness Reason for Visit: low back pain History of Present Illness: Date of admission: 05/14/19 HPI: Patient is a 54 year old woman with recent treatment for left psoas abscess , who was sent to the ER today by Dr. Larkin due to concerning CT findings. Patient was hospitalized 03/30-04/08 with left psoas abscess, had IR drainage on 04/04. Patient was initially treated with cefepime and vanco, then blood cultures grew fusobacterium nucleatum, so patient was discharged to home to complete 6 weeks of Ertepenem. She states she had moderate right-sided low back pain, that radiated to right hip down to knee in March after discharge. She could walk with a walker. In early april, the pain worsened to 8-9/10, and radiated further to right ankle. Right leg is weak, and it is more difficult to ambulate w/ walker due to weakness and pain. She found oral dilaudid and oxycodone ineffective. Yesterday patient had CT of LS spine, was called today to come to ER due to findings of possible osteo-discitis. During last hospital stay, she had an MRI of thoracic and lumbar spine that showed degenerative disc disease, spondylosis , but no infection. 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 [employer] Alcohol: None Drugs: None Lives: With Family Review of Systems - Measurements Intake and Output: Intake and Output Last 24 Hours 05/12/19 05/13/19 05/14/19 05/15/19 06:59 06:59 06:59 06:59 Weight 61.689 kg - Review of Systems Constitutional Symptoms: Positive: Weight Gain, Weakness, Fatigue Negative: Fever Dermatology: Positive: Normal HEENT: Positive: Normal Eyes: Positive: Normal Thyroid: Positive: Normal Pulmonary: Positive: Shortness of Breath, COPD, Home Oxygen Cardiology: Positive: Normal Gastroenterology: Positive: Anorexia Negative: Abdominal Pain, Vomiting Genital - Urinary: Positive: Normal Genitourinay - Female: Positive: Menopause Musculoskeletal: Positive: Low Back Pain, Sciatica Endocrinology: Positive: Normal Neurology: Positive: Change in Walking, Numbness\Paresthesiae Negative: Headache, Change in Vision Psychiatry: Positive: Anxiety Objective Active Medications: Home Medications: Albuterol 2.5MG/3ML (0.083%)* [Ventolin 2.5 MG/3 ML NEB.LESLIE*] 2.5 mg INH Q4H PRN 03/31/19 Beclomethasone 80 MCG MDI(NF) [Qvar 80 MCG MDI(NF)] 2 puff INH BID 03/31/19 Escitalopram * [Lexapro 10 mg (NF)] 10 mg PO DAILY 03/31/19 Glycopyrrolate/Formoterol (NF) [Bevespi Aerospere Inhaler] 2 puff INH BID busPIRone TAB* [Buspar TAB*] 10 mg PO BID 03/31/19 oxyCODONE TAB* [Roxycodone TAB 5 mg*] 5 mg PO Q6H PRN #16 tab MDD 4 04/08/19 Hydromorphone HCl 1 mg PO Q6HR PRN 05/14/19 Current Inpatient Medications: Acetaminophen (Tylenol Tab*) 650 mg PO Q4H PRN PRN Reason: FEVER/HEADACHE Albuterol (Ventolin 2.5 Mg/3 Ml Neb.Leslie*) 2.5 mg INH Q4H PRN PRN Reason: SOB/WHEEZING Beclomethasone Dipropionate (Qvar 80 Mcg Mdi(Nf)) 2 puff INH BID [facility] Buspirone HCl (Buspar Tab*) 10 mg PO BID [facility] Escitalopram Oxalate (Lexapro *) 10 mg PO DAILY [facility] Glycopyrrolate/Formoterol Fumarate (Bevespi Aerospere Inhaler) 2 puff INH BID [facility] Heparin Sodium (Porcine) (Heparin Vial(*)) 5,000 units SUBCUT Q12HR [facility] Vancomycin HCl 1,000 mg/ (Sodium Chloride) 250 mls @ 166.667 mls/hr IV ONCE ONE ; Protocol Stop: 05/15/19 00:25 Last Admin: 05/14/19 23:08 Dose: 166.667 mls/hr Cefepime HCl (Maxipime 2 Gm In Dextrose Duplex (*)) 2 gm in 50 mls @ 100 mls/ hr IV Q12H [facility] Morphine Sulfate (Morphine Inj (Syringe)*) 4 mg IV Q4H PRN PRN Reason: PAIN - SEVERE Ondansetron HCl (Zofran Inj*) 4 mg IV Q6H PRN PRN Reason: NAUSEA Pharmacy Consult (Vancomycin Per Pharmacy*) 1 note FOLLOW UP .VANC PER PHARMACY [facility]; Protocol Vital Signs - 8 hr 05/14/19 05/14/19 05/14/19 19:35 19:58 20:18 Temperature 37.2 C Pulse Rate 98 92 96 Respiratory 16 Rate Blood Pressure 100/60 102/63 (mmHg) O2 Sat by Pulse 88 97 97 Oximetry 05/14/19 05/14/19 05/14/19 22:32 22:35 23:50 Temperature 36.7 C Pulse Rate 87 70 Respiratory 18 18 Rate Blood Pressure 103/51 (mmHg) O2 Sat by Pulse 97 97 Oximetry Oxygen Devices in Use Now: Nasal Cannula Appearance: mild respiratory distress (post walk to BR) Eyes: No Scleral Icterus Ears/Nose/Mouth/Throat: NL Teeth, Lips, Gums Neck: NL Appearance and Movements; NL JVP, No Thyroid Enlargement, Masses Respiratory: Clear to Auscultation, Clear to Percussion, - - diminished throughout Cardiovascular: NL Sounds; No Murmurs; No JVD, RRR Abdominal: NL Sounds; No Tenderness; No Distention Lymphatic: No Cervical Adenopathy, No Axillary Adenopathy Extremities: No Edema Skin: No Rash or Ulcers Neurological: Alert and Oriented x 3, NL Sensation, - - motor 3/5 RLE proximal, 5/5 distal, 5/5 LLE, DTR absent RT patella, 2+ on LT Lines/Tubes/Other Access: Clean, Dry and Intact Peripheral IV Nutrition: Taking PO's Result Diagrams: 05/14/19 20:37 05/14/19 20:37 Additional Lab and Data: Laboratory Tests 05/14/19 05/14/19 05/14/19 20:37 20:37 20:37 ESR 68 H Lactic Acid 0.9 Calcium 8.7 C-Reactive Protein 34.20 H Albumin 3.3 Diagnostic Imaging: MRI Thor Spine: Degen Disc Disease MRI LS Spine: L4-5 osteo-discitis, sign of RT psoas muscle infection ?resolving Assess/Plan/Problems-Billing Assessment: 54 year old woman with 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 Will cover fusobacterium nucleatum, but concern would be for second agent that was not controlled by ertepenem. Infectious disease consult will be obtained. (2) Psoas abscess, left Current Visit: Yes Status: Chronic Priority: Medium Code(s): K68.12 - PSOAS MUSCLE ABSCESS SNOMED Code(s): 826226047 Comment: -Appears largely resolved on MRI, had drainage during previous admission. (3) COPD (chronic obstructive pulmonary disease) Current Visit: Yes Status: Acute Priority: Medium Code(s): J44.9 - CHRONIC OBSTRUCTIVE PULMONARY DISEASE, UNSPECIFIED SNOMED Code(s): 64637813 Comment: Does not appear exacerbated at this time. Will continue inhalers, monitor. (4) DVT prophylaxis Current Visit: No Status: Acute Priority: Medium Code(s): Z29.9 - ENCOUNTER FOR PROPHYLACTIC MEASURES, UNSPECIFIED SNOMED Code(s): 341558707 Comment: -Moderate Risk -Heparin SC Status and Disposition: Inpatient
[2019-05-15] MEDS: Morphine INJ* 4 MG/ML 1 ML SYRINGE (NEW SYRINGE VERSION) IV PRN ×3 (00:55→14:15)
[2019-05-15] MEDS: Cefepime 2 GM in Dextrose(*) 2 GM/50 ML BAG IV SCH ×2 (00:56→12:26)
[2019-05-15] MEDS: Vancomycin(*) 1,250 MG in NS 0.9% 250 ML* 250 ML IVPB SCH ×3 (05:19→23:12)
[2019-05-15] MEDS: Tiotropium Brom/Olodaterol MDI INH SCH (07:44)
[2019-05-15] MEDS: busPIRone TAB* 10 MG PO SCH ×2 (07:44→21:11)
[2019-05-15] MEDS: Heparin VIAL(*) 5000 UNITS/ML VIAL (FIVE THOUSAND) SUBCUT SCH ×2 (07:44→21:11)
[2019-05-15] MEDS: Escitalopram * 10 MG TAB PO SCH (07:44)
[2019-05-15] MEDS: Nicotine PATCH 14 MG/24 HR* PATCH TRANSDERM SCH (07:44)
--- NOTE | 2019-05-15 07:54 | PN ---
Subjective Date of Service: 05/15/19 Interval History: HOSPITALIST PROGRESS NOTE Patient seen and examined at bedside. Care reviewed and d/w Jalyn Tello RN. She has had 2 episodes of liquid diarrhea so far today. Denies abdominal pain or cramping, no N/V. Back pain is unchanged - 5-7 while resting, 10 with ambulation. RLE weakness present since March, unchanged at this time. Family History: Unchanged from Admission Social History: Unchanged from Admission Past Medical History: Unchanged from Admission Objective Active Medications: Acetaminophen (Tylenol Tab*) 650 mg PO Q4H PRN PRN Reason: FEVER/HEADACHE Albuterol (Ventolin 2.5 Mg/3 Ml Neb.Denise*) 2.5 mg INH Q4H PRN PRN Reason: SOB/WHEEZING Buspirone HCl (Buspar Tab*) 10 mg PO BID [facility] Last Admin: 05/15/19 07:44 Dose: 10 mg Escitalopram Oxalate (Lexapro *) 10 mg PO DAILY [facility] Last Admin: 05/15/19 07:44 Dose: 10 mg Heparin Sodium (Porcine) (Heparin Vial(*)) 5,000 units SUBCUT Q12HR [facility] Last Admin: 05/15/19 07:44 Dose: 5,000 units Cefepime HCl (Maxipime 2 Gm In Dextrose Duplex (*)) 2 gm in 50 mls @ 100 mls/ hr IV Q12H [facility] Last Admin: 05/15/19 00:56 Dose: 100 mls/hr Vancomycin HCl 1,250 mg/ (Sodium Chloride) 250 mls @ 166.667 mls/hr IVPB Q8H [facility] Last Admin: 05/15/19 05:19 Dose: 166.667 mls/hr Mometasone Furoate (Asmanex 220 Mcg Mdi *) 2 puff INH QPM [facility] Morphine Sulfate (Morphine Inj (Syringe)*) 4 mg IV Q4H PRN PRN Reason: PAIN - SEVERE Last Admin: 05/15/19 07:44 Dose: 4 mg Nicotine (Nicotine Patch 14 Mg/24 Hr*) 1 patch TRANSDERM DAILY [facility] Last Admin: 05/15/19 07:44 Dose: 1 patch Ondansetron HCl (Zofran Inj*) 4 mg IV Q6H PRN PRN Reason: NAUSEA Pharmacy Consult (Vancomycin Per Pharmacy*) 1 note FOLLOW UP .VANC PER PHARMACY [facility]; Protocol Pharmacy Profile Note (Vancomycin Trough Check) 1 note FOLLOW UP 0600 ONE Stop: 05/16/19 06:01 Pharmacy Profile Note (Nicotine Patch Removal Note*) 1 note PATCH OFF 2100 [facility] Tiotropium [place]/Olodaterol (Stiolto Respimat Inh [place] (60 Puff)) 2 puff INH DAILY [facility] Last Admin: 05/15/19 07:44 Dose: 2 puff Vital Signs - 8 hr 05/15/19 05/15/19 05/15/19 00:40 00:55 02:00 Temperature 97.9 F Pulse Rate 85 Respiratory 16 16 18 Rate Blood Pressure 112/55 (mmHg) O2 Sat by Pulse 99 Oximetry 05/15/19 05/15/19 05/15/19 02:45 07:44 07:52 Temperature 97.2 F Pulse Rate 77 86 Respiratory 16 20 20 Rate Blood Pressure 114/47 (mmHg) O2 Sat by Pulse 96 92 Oximetry Oxygen Devices in Use Now: Nasal Cannula Appearance: Thin lady, appears older than stated age, sitting up in bed in NAD Eyes: No Scleral Icterus Ears/Nose/Mouth/Throat: Mucous Membranes Moist Neck: Trachea Midline Respiratory: Symmetrical Chest Expansion and Respiratory Effort, - - BS+ bilaterally diminished Cardiovascular: RRR - Normal S1 and S2 Neurological: Alert and Oriented x 3, - - RLE strength 3/5 proximal, 5/5 distal Result Diagrams: 05/14/19 20:37 05/14/19 20:37 Assess/Plan/Problems-Billing Assessment: 54 year old woman with 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 Will continue Vancomycin and Cefepime as per ID recommendation. - Blood cultures show no growth so far. - Had back pain and RLE on her prior admission - MRI L spine was negative for abscess; positive for L4-L5 nerve root impingement and she was seen by Neurosurgery at that time. (2) Psoas abscess, left Comment: - Present on prior admission, drained by IR. Fluid cx was negative, but blood cultures grew Fusobacterium nucleatum. -Appears largely resolved on MRI, had drainage during previous admission. (3) COPD (chronic obstructive pulmonary disease) Comment: - Stable. - Continue bronchodilators and inhaled steroids. (4) DVT prophylaxis Comment: - SQ Heparin. (5) Full code status Status and Disposition: Inpatient
[2019-05-15] MEDS: oxyCODONE TAB* 5 MG TAB PO PRN ×2 (11:20→18:19)
[2019-05-15] MEDS: Mometasone 220 MCG MDI INH SCH (19:37)
[2019-05-15] MEDS: Nicotine Patch Removal NOTE PATCH OFF SCH (21:13)
[2019-05-16] MEDS: Cefepime 2 GM in Dextrose(*) 2 GM/50 ML BAG IV SCH ×2 (01:07→13:04)
[2019-05-16] MEDS: oxyCODONE TAB* 5 MG TAB PO PRN ×2 (01:07→08:37)
[2019-05-16] MEDS: Morphine INJ* 4 MG/ML 1 ML SYRINGE (NEW SYRINGE VERSION) IV PRN ×2 (01:15→05:33)
[2019-05-16] MEDS ORDERED: Vancomycin Trough Check NOTE FOLLOW UP ONE (06:00)
[2019-05-16] MEDS: Vancomycin(*) 1,250 MG in NS 0.9% 250 ML* 250 ML IVPB SCH (06:16)
[2019-05-16] MEDS: Tiotropium Brom/Olodaterol MDI INH SCH (07:46)
[2019-05-16] MEDS: Escitalopram * 10 MG TAB PO SCH (08:36)
[2019-05-16] MEDS: busPIRone TAB* 10 MG PO SCH ×2 (08:36→20:00)
[2019-05-16] MEDS: Heparin VIAL(*) 5000 UNITS/ML VIAL (FIVE THOUSAND) SUBCUT SCH ×2 (08:37→20:00)
[2019-05-16] MEDS: Nicotine PATCH 14 MG/24 HR* PATCH TRANSDERM SCH (08:37)
--- NOTE | 2019-05-16 09:31 | PN ---
Subjective Date of Service: 05/16/19 Interval History: Ms. Alvarez reports that her pain is not well-controlled. She complains of spasms down her right leg. She has severe pain with mobility, especially getting out of bed. Family History: Unchanged from Admission Social History: Unchanged from Admission Past Medical History: Unchanged from Admission Objective Active Medications: Acetaminophen (Tylenol Tab*) 650 mg PO Q4H PRN Albuterol (Ventolin 2.5 Mg/3 Ml Neb.Denise*) 2.5 mg INH Q4H PRN Buspirone HCl (Buspar Tab*) 10 mg PO BID [facility] Escitalopram Oxalate (Lexapro *) 10 mg PO DAILY [facility] Heparin Sodium (Porcine) (Heparin Vial(*)) 5,000 units SUBCUT Q12HR [facility] Cefepime HCl (Maxipime 2 Gm In Dextrose Duplex (*)) 2 gm in 50 mls @ 100 mls/ hr IV Q12H [facility] Vancomycin HCl 1,000 mg/ (Sodium Chloride) 250 mls @ 166.667 mls/hr IV Q12H [facility] Mometasone Furoate (Asmanex 220 Mcg Mdi *) 2 puff INH QPM [facility] Morphine Sulfate (Morphine Inj (Syringe)*) 4 mg IV Q4H PRN Nicotine (Nicotine Patch 14 Mg/24 Hr*) 1 patch TRANSDERM DAILY [facility] Ondansetron HCl (Zofran Inj*) 4 mg IV Q6H PRN Oxycodone HCl (Roxycodone Tab*) 5 mg PO Q6H PRN Pharmacy Consult (Vancomycin Per Pharmacy*) 1 note FOLLOW UP .VANC PER PHARMACY [facility]; Protocol Pharmacy Profile Note (Nicotine Patch Removal Note*) 1 note PATCH OFF 2100 [facility] Pharmacy Profile Note (Vancomycin Trough Check) 1 note FOLLOW UP 1030 ONE Tiotropium [place]/Olodaterol (Stiolto Respimat Inh [place] (60 Puff)) 2 puff INH DAILY [facility] Vital Signs: Temp Pulse Resp BP Pulse Ox 98.1 F 86 17 130/62 90 05/16/19 04:06 05/16/19 04:06 05/16/19 08:37 05/16/19 04:06 05/16/19 04:06 Oxygen Devices in Use Now: None Appearance: Female lying in bed in NAD Eyes: No Scleral Icterus Neck: Trachea Midline Respiratory: Symmetrical Chest Expansion and Respiratory Effort, Clear to Auscultation Cardiovascular: NL Sounds; No Murmurs; No JVD, No Edema Abdominal: NL Sounds; No Tenderness; No Distention Extremities: No Edema Skin: No Rash or Ulcers Neurological: Alert and Oriented x 3, - - Right leg weakness Nutrition: Taking PO's - Nutrition: Malnutrition Diagnosis/Plan Malnutrition Assessment by Registered Dietitian: Malnutrition Assessment Clinical Characteristics Acute,Severe Malnutrition Assessment: 18.5% wt loss x 1-1.5 mo (severe) Criteria < or = 50% of EEE x > or = 5 days Malnutrition Assessment: Ensure Enlive @ BLD daily: 350 kcals, 20 g pro Interventions per serving Malnutrition Assessment: Goals 1. Intake will be adequate to promote stable wt / wt gain and preserve lean body mass Result Diagrams: 05/14/19 20:37 05/14/19 20:37 Additional Lab and Data: . Microbiology and Other Data: . Diagnostic Imaging: . Assess/Plan/Problems-Billing Assessment: Ms. 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 - Patient Problems (1) Discitis, unspecified, lumbosacral region Comment: - Recently completed 6 weeks of Ertapenem. Will continue Vancomycin and Cefepime as per ID recommendation. - Blood cultures show no growth so far. - Had back pain and RLE weakness on her prior admission - MRI L spine was negative for abscess; positive for L4-L5 nerve root impingement and she was seen by Neurosurgery at that time. - Increased pain meds, added oxycodone SR 10mg BID and flexeril for spasms. Continue oxycodone 5mg and morphine prn. - PICC ordered. (2) COPD (chronic obstructive pulmonary disease) Comment: - Stable. - Continue bronchodilators and inhaled steroids. (3) Psoas abscess, left Comment: - Present on prior admission, drained by IR. Fluid cx was negative, but blood cultures grew Fusobacterium nucleatum. -Appears largely resolved on MRI, had drainage during previous admission. (4) DVT prophylaxis Comment: - SQ Heparin. (5) Full code status Comment: Status and Disposition: Inpatient. Anticipate discharge to home when medically stable.
[2019-05-16] MEDS ORDERED: Cyclobenzaprine TAB* 10 MG PO PRN (10:04)
[2019-05-16] MEDS: oxyCODONE SR TAB(*) 10 MG TAB.SR PO SCH ×2 (10:31→20:00)
[2019-05-16] MEDS: Vancomycin(*) 1,000 MG in NS 0.9% 250 ML* 250 ML IV SCH ×2 (10:32→23:44)
[2019-05-16] MEDS: Cyclobenzaprine TAB* 10 MG PO PRN (18:36)
[2019-05-16] MEDS: Mometasone 220 MCG MDI INH SCH (20:17)
[2019-05-16] MEDS: Nicotine Patch Removal NOTE PATCH OFF SCH (21:33)
[2019-05-17] MEDS: Cefepime 2 GM in Dextrose(*) 2 GM/50 ML BAG IV SCH ×2 (01:51→14:44)
[2019-05-17] MEDS: Cyclobenzaprine TAB* 10 MG PO PRN ×3 (04:58→20:04)
[2019-05-17] MEDS: Tiotropium Brom/Olodaterol MDI INH SCH (08:18)
[2019-05-17] MEDS: oxyCODONE SR TAB(*) 10 MG TAB.SR PO SCH ×2 (09:19→20:03)
[2019-05-17] MEDS: Escitalopram * 10 MG TAB PO SCH (09:19)
--- NOTE | 2019-05-17 09:19 | PN ---
Subjective Date of Service: 05/17/19 Interval History: Ms. Alvarez reports that she is feeling ok today. Her pain is much better controlled overall. However, the flexeril did make her sleepy yesterday (since decreased). She denies chest pain, SOB, nausea, or abdominal pain. Family History: Unchanged from Admission Social History: Unchanged from Admission Past Medical History: Unchanged from Admission Objective Active Medications: Acetaminophen (Tylenol Tab*) 650 mg PO Q4H PRN Albuterol (Ventolin 2.5 Mg/3 Ml Neb.Denise*) 2.5 mg INH Q4H PRN Buspirone HCl (Buspar Tab*) 10 mg PO BID [facility] Cyclobenzaprine HCl (Flexeril Tab*) 5 mg PO TID PRN Escitalopram Oxalate (Lexapro *) 10 mg PO DAILY [facility] Heparin Sodium (Porcine) (Heparin Vial(*)) 5,000 units SUBCUT Q12HR [facility] Cefepime HCl (Maxipime 2 Gm In Dextrose Duplex (*)) 2 gm in 50 mls @ 100 mls/ hr IV Q12H [facility] Vancomycin HCl 1,000 mg/ (Sodium Chloride) 250 mls @ 166.667 mls/hr IV Q12H [facility] Mometasone Furoate (Asmanex 220 Mcg Mdi *) 2 puff INH QPM [facility] Morphine Sulfate (Morphine Inj (Syringe)*) 4 mg IV Q4H PRN Nicotine (Nicotine Patch 14 Mg/24 Hr*) 1 patch TRANSDERM DAILY [facility] Ondansetron HCl (Zofran Inj*) 4 mg IV Q6H PRN Oxycodone HCl (Roxycodone Tab*) 5 mg PO Q6H PRN Oxycodone HCl (Oxycontin(*)) 10 mg PO Q12HR [facility] Pharmacy Consult (Vancomycin Per Pharmacy*) 1 note FOLLOW UP .VANC PER PHARMACY [facility]; Protocol Pharmacy Profile Note (Nicotine Patch Removal Note*) 1 note PATCH OFF 2100 [facility] Pharmacy Profile Note (Vancomycin Trough Check) 1 note FOLLOW UP 1030 ONE Tiotropium [place]/Olodaterol (Stiolto Respimat Inh [place] (60 Puff)) 2 puff INH DAILY [facility] Vital Signs - 8 hr 05/17/19 05/17/19 05/17/19 04:58 05:08 08:19 Temperature 99.3 F Pulse Rate 81 78 Respiratory 18 16 16 Rate Blood Pressure 112/61 (mmHg) O2 Sat by Pulse 92 96 Oximetry Oxygen Devices in Use Now: None Appearance: Female lying in bed in NAD Eyes: No Scleral Icterus Ears/Nose/Mouth/Throat: Mucous Membranes Moist Neck: Trachea Midline Respiratory: Symmetrical Chest Expansion and Respiratory Effort, Clear to Auscultation Cardiovascular: NL Sounds; No Murmurs; No JVD, No Edema Abdominal: NL Sounds; No Tenderness; No Distention Extremities: No Edema Skin: No Rash or Ulcers Neurological: Alert and Oriented x 3, - - Right leg weakness Nutrition: Taking PO's - Nutrition: Malnutrition Diagnosis/Plan Malnutrition Assessment by Registered Dietitian: Malnutrition Assessment Clinical Characteristics Acute,Severe Malnutrition Assessment: 18.5% wt loss x 1-1.5 mo (severe) Criteria < or = 50% of EEE x > or = 5 days Malnutrition Assessment: Ensure Enlive @ BLD daily: 350 kcals, 20 g pro Interventions per serving Malnutrition Assessment: Goals 1. Intake will be adequate to promote stable wt / wt gain and preserve lean body mass Result Diagrams: 05/14/19 20:37 05/14/19 20:37 Additional Lab and Data: . Microbiology and Other Data: . Diagnostic Imaging: . Assess/Plan/Problems-Billing Assessment: Ms. 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 - Patient Problems (1) Discitis, unspecified, lumbosacral region Comment: - Recently completed 6 weeks of Ertapenem. Will continue Vancomycin and Cefepime as per ID recommendation. - Blood cultures show no growth so far. - Had back pain and RLE weakness on her prior admission - MRI L spine was negative for abscess; positive for L4-L5 nerve root impingement and she was seen by Neurosurgery at that time. - Continue oxycodone SR 10mg BID and flexeril for spasms. Continue oxycodone 5mg and morphine prn. - PICC ordered. (2) COPD (chronic obstructive pulmonary disease) Comment: - Stable. - Continue bronchodilators and inhaled steroids. (3) Psoas abscess, left Comment: - Present on prior admission, drained by IR. Fluid cx was negative, but blood cultures grew Fusobacterium nucleatum. -Appears largely resolved on MRI, had drainage during previous admission. (4) DVT prophylaxis Comment: - SQ Heparin. (5) Full code status Comment: Status and Disposition: Inpatient. Anticipate discharge to home when medically stable.
[2019-05-17] MEDS: busPIRone TAB* 10 MG PO SCH ×2 (09:20→20:03)
[2019-05-17] MEDS: Heparin VIAL(*) 5000 UNITS/ML VIAL (FIVE THOUSAND) SUBCUT SCH ×2 (09:21→20:04)
[2019-05-17] MEDS: Nicotine PATCH 14 MG/24 HR* PATCH TRANSDERM SCH (10:41)
[2019-05-17] MEDS: Vancomycin(*) 1,000 MG in NS 0.9% 250 ML* 250 ML IV SCH ×2 (12:34→23:27)
[2019-05-17] MEDS: Morphine INJ* 4 MG/ML 1 ML SYRINGE (NEW SYRINGE VERSION) IV PRN (16:04)
[2019-05-17] MEDS: Nicotine Patch Removal NOTE PATCH OFF SCH (20:07)
[2019-05-17] MEDS: oxyCODONE TAB* 5 MG TAB PO PRN (23:35)
[2019-05-18] MEDS: Cefepime 2 GM in Dextrose(*) 2 GM/50 ML BAG IV SCH ×2 (01:29→13:58)
[2019-05-18] MEDS: Cyclobenzaprine TAB* 10 MG PO PRN ×3 (03:24→20:49)
[2019-05-18] MEDS: Mometasone 220 MCG MDI INH SCH ×2 (03:40→19:43)
[2019-05-18] MEDS: oxyCODONE TAB* 5 MG TAB PO PRN (06:04)
[2019-05-18 06:30] LABS: ABS Lymphocytes 1.3 10^3/ul (1.0-4.8); ABS Monocytes 0.5 10^3/ul (0-0.8); ABS Neutrophils 1.2 10^3/ul (1.5-7.7); Eosinophil % 1.4 %; Hematocrit 36 % (35-47); Hemoglobin 12.3 g/dL (12.0-16.0); Lymphocyte % 42.3 %; Mean Corpuscular HGB Conc 34 g/dL (31-36); Mean Corpuscular Hemoglobin 33 pg (27-31); Mean Corpuscular Volume 96 fL (80-97); Mean Platelet Volume 6.8 fL (7.4-10.4); Nucleated Red Blood Cells % 0.2; Platelet Count 270 10^3/uL (150-450); Red Blood Count 3.78 10^6 /uL (3.70-4.87); Red Cell Distribution Width 13 % (10-15)
[2019-05-18 06:49] LABS: BUN/Creatinine Ratio 16.7 (8-20); C Reactive Protein 10.58 mg/L (<8.01); Calcium 8.5 mg/dL (8.6-10.3); EGFR African American 161.9 (>60); EGFR Non-African American 133.8 (>60); Potassium 4.2 mmol/L (3.5-5.0)
[2019-05-18] MEDS: Tiotropium Brom/Olodaterol MDI INH SCH (08:06)
--- NOTE | 2019-05-18 09:32 | PN ---
Subjective Date of Service: 05/18/19 Interval History: Ms. Alvarez reports that she is tired but feeling well today. She continues to have right leg weakness. She denies other complaint. Family History: Unchanged from Admission Social History: Unchanged from Admission Past Medical History: Unchanged from Admission Objective Active Medications: Acetaminophen (Tylenol Tab*) 650 mg PO Q4H PRN Albuterol (Ventolin 2.5 Mg/3 Ml Neb.Denise*) 2.5 mg INH Q4H PRN Buspirone HCl (Buspar Tab*) 10 mg PO BID [facility] Cyclobenzaprine HCl (Flexeril Tab*) 5 mg PO TID PRN Escitalopram Oxalate (Lexapro *) 10 mg PO DAILY [facility] Heparin Sodium (Porcine) (Heparin Vial(*)) 5,000 units SUBCUT Q12HR [facility] Cefepime HCl (Maxipime 2 Gm In Dextrose Duplex (*)) 2 gm in 50 mls @ 100 mls/ hr IV Q12H [facility] Vancomycin HCl 1,000 mg/ (Sodium Chloride) 250 mls @ 166.667 mls/hr IV Q12H [facility] Mometasone Furoate (Asmanex 220 Mcg Mdi *) 2 puff INH QPM [facility] Morphine Sulfate (Morphine Inj (Syringe)*) 4 mg IV Q4H PRN Nicotine (Nicotine Patch 14 Mg/24 Hr*) 1 patch TRANSDERM DAILY [facility] Ondansetron HCl (Zofran Inj*) 4 mg IV Q6H PRN Oxycodone HCl (Roxycodone Tab*) 5 mg PO Q6H PRN Oxycodone HCl (Oxycontin(*)) 10 mg PO Q12HR [facility] Pharmacy Consult (Vancomycin Per Pharmacy*) 1 note FOLLOW UP .VANC PER PHARMACY [facility]; Protocol Pharmacy Profile Note (Nicotine Patch Removal Note*) 1 note PATCH OFF 2100 [facility] Pharmacy Profile Note (Vancomycin Trough Check) 1 note FOLLOW UP 1030 ONE Tiotropium Ovando/Olodaterol (Stiolto Respimat Inh [place]cott (60 Puff)) 2 puff INH DAILY [facility] Vital Signs: Temp Pulse Resp BP Pulse Ox 98.5 F 68 18 110/50 93 05/18/19 07:24 05/18/19 07:24 05/18/19 07:24 05/18/19 07:24 05/18/19 07:24 Oxygen Devices in Use Now: Nasal Cannula Appearance: Female lying in bed in NAD Eyes: No Scleral Icterus Ears/Nose/Mouth/Throat: Mucous Membranes Moist Respiratory: Symmetrical Chest Expansion and Respiratory Effort, Clear to Auscultation Cardiovascular: NL Sounds; No Murmurs; No JVD, No Edema Abdominal: NL Sounds; No Tenderness; No Distention Extremities: No Edema Skin: No Rash or Ulcers Neurological: Alert and Oriented x 3, - - Right leg weakness Nutrition: Taking PO's - Nutrition: Malnutrition Diagnosis/Plan Malnutrition Assessment by Registered Dietitian: Malnutrition Assessment Clinical Characteristics Acute,Severe Malnutrition Assessment: 18.5% wt loss x 1-1.5 mo (severe) Criteria < or = 50% of EEE x > or = 5 days Malnutrition Assessment: Ensure Enlive @ BLD daily: 350 kcals, 20 g pro Interventions per serving Malnutrition Assessment: Goals 1. Intake will be adequate to promote stable wt / wt gain and preserve lean body mass Result Diagrams: 05/18/19 05:44 05/18/19 05:44 Additional Lab and Data: . Microbiology and Other Data: . Diagnostic Imaging: . Assess/Plan/Problems-Billing Assessment: Ms. 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 - Patient Problems (1) Discitis, unspecified, lumbosacral region Comment: - Recently completed 6 weeks of Ertapenem. Will continue Vancomycin and Cefepime as per ID recommendation. - Blood cultures show no growth so far. - Had back pain and RLE weakness on her prior admission - MRI L spine was negative for abscess; positive for L4-L5 nerve root impingement and she was seen by Neurosurgery at that time. - Continue oxycodone SR 10mg BID and flexeril for spasms. Continue oxycodone 5mg and morphine prn. - PICC ordered. (2) COPD (chronic obstructive pulmonary disease) Comment: - Stable, remains on 3L NC since her last admission - No evidence of pneumonia, recommend outpatient pulm consult and PFTs - Continue bronchodilators and inhaled steroids. (3) Psoas abscess, left Comment: - Present on prior admission, drained by IR. Fluid cx was negative, but blood cultures grew Fusobacterium nucleatum. -Appears largely resolved on MRI, had drainage during previous admission. (4) DVT prophylaxis Comment: - SQ Heparin. (5) Full code status Comment: Status and Disposition: Inpatient. Anticipate discharge to home when medically stable.
[2019-05-18] MEDS: Escitalopram * 10 MG TAB PO SCH (09:43)
[2019-05-18] MEDS: Heparin VIAL(*) 5000 UNITS/ML VIAL (FIVE THOUSAND) SUBCUT SCH ×2 (09:44→20:50)
[2019-05-18] MEDS: oxyCODONE SR TAB(*) 10 MG TAB.SR PO SCH ×2 (09:44→20:50)
[2019-05-18] MEDS: busPIRone TAB* 10 MG PO SCH ×2 (09:44→20:49)
[2019-05-18] MEDS: Nicotine PATCH 14 MG/24 HR* PATCH TRANSDERM SCH (09:45)
[2019-05-18] MEDS ORDERED: Vancomycin Trough Check NOTE FOLLOW UP ONE (10:30)
[2019-05-18] MEDS: Vancomycin(*) 1,000 MG in NS 0.9% 250 ML* 250 ML IV SCH (11:30)
[2019-05-18] MEDS ORDERED: niCARdipine CAP* 30 MG PO ONE (11:45)
[2019-05-18] MEDS: Morphine INJ* 4 MG/ML 1 ML SYRINGE (NEW SYRINGE VERSION) IV PRN (17:57)
[2019-05-18] MEDS: Nicotine Patch Removal NOTE PATCH OFF SCH ×2 (20:53→20:54)
[2019-05-19] MEDS: Vancomycin(*) 1,000 MG in NS 0.9% 250 ML* 250 ML IV SCH ×3 (00:07→22:45)
[2019-05-19] MEDS: Cefepime 2 GM in Dextrose(*) 2 GM/50 ML BAG IV SCH (02:03)
[2019-05-19] MEDS: Tiotropium Brom/Olodaterol MDI INH SCH (07:39)
--- NOTE | 2019-05-19 09:49 | PN ---
Subjective Date of Service: 05/19/19 Interval History: Ms. Alvarez states that her back pain is "not that bad" this morning, although she does continue to have mid- and right-sided back pain that radiates down the lateral aspect of the right leg to the ankle. She complains of some shortness of breath and a mild cough, which she states is chronic; she denies fever, chills. She is requiring 3L O2. She has no other complaints today. Family History: Unchanged from Admission Social History: Unchanged from Admission Past Medical History: Unchanged from Admission Objective Active Medications: Acetaminophen (Tylenol Tab*) 650 mg PO Q4H PRN PRN Reason: FEVER/HEADACHE Last Admin: 05/18/19 12:59 Dose: 650 mg Albuterol (Ventolin 2.5 Mg/3 Ml Neb.Denise*) 2.5 mg INH Q4H PRN PRN Reason: SOB/WHEEZING Buspirone HCl (Buspar Tab*) 10 mg PO BID [facility] Last Admin: 05/18/19 20:49 Dose: 10 mg Cyclobenzaprine HCl (Flexeril Tab*) 5 mg PO TID PRN PRN Reason: muscle spasm Last Admin: 05/18/19 20:49 Dose: 5 mg Escitalopram Oxalate (Lexapro *) 10 mg PO DAILY [facility] [place] Last Admin: 05/18/19 09:43 Dose: 10 mg Heparin Sodium (Porcine) (Heparin Vial(*)) 5,000 units SUBCUT Q12HR [facility] [place] Last Admin: 05/18/19 20:50 Dose: 5,000 units Vancomycin HCl 1,000 mg/ (Sodium Chloride) 250 mls @ 166.667 mls/hr IV Q12H [facility] [place] Last Admin: 05/19/19 00:07 Dose: 166.667 mls/hr Ceftriaxone Sodium 1 gm/ (Sodium Chloride) 50 mls @ 100 mls/hr IVPB Q24H [facility] [place] Mometasone Furoate (Asmanex 220 Mcg Mdi *) 2 puff INH QPM [facility] [place] Last Admin: 05/18/19 19:43 Dose: 2 puff Morphine Sulfate (Morphine Inj (Syringe)*) 4 mg IV Q4H PRN PRN Reason: PAIN - SEVERE Last Admin: 05/18/19 17:57 Dose: 4 mg Nicotine (Nicotine Patch 14 Mg/24 Hr*) 1 patch TRANSDERM DAILY [facility] [place] Last Admin: 05/18/19 09:45 Dose: Not Given Ondansetron HCl (Zofran Inj*) 4 mg IV Q6H PRN PRN Reason: NAUSEA Oxycodone HCl (Roxycodone Tab*) 5 mg PO Q6H PRN PRN Reason: PAIN - MODERATE Last Admin: 05/18/19 06:04 Dose: 5 mg Oxycodone HCl (Oxycontin(*)) 10 mg PO Q12HR [facility] [place] Last Admin: 05/18/19 20:50 Dose: 10 mg Pharmacy Consult (Vancomycin Per Pharmacy*) 1 note FOLLOW UP .VANC PER PHARMACY [facility]; Protocol Pharmacy Profile Note (Nicotine Patch Removal Note*) 1 note PATCH OFF 2100 [facility] Last Admin: 05/18/19 20:54 Dose: Not Given Pharmacy Profile Note (Vancomycin Trough Check) 1 note FOLLOW UP 1030 ONE Stop: 05/20/19 10:31 Tiotropium [place]/Olodaterol (Stiolto Respimat Inh Carpio (60 Puff)) 2 puff INH DAILY [facility] [place] Last Admin: 05/19/19 07:39 Dose: 2 puff Vital Signs: Temp Pulse Resp BP Pulse Ox 98.2 F 83 20 112/55 91 05/19/19 07:30 05/19/19 07:30 05/19/19 07:30 05/19/19 07:30 05/19/19 07:30 Oxygen Devices in Use Now: Nasal Cannula Appearance: Ms. Alvarez is a white, middle-aged female who is sitting at the edge of bed with her feet dangling. She is breathing comfortably with NC in place. She appears somewhat frustrated, but is pleasant and cooperative. She appears to be in no acute distress. 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 Intake will be adequate to promote stable wt / wt gain and preserve lean body mass Result Diagrams: 05/18/19 05:44 05/18/19 05:44 Additional Lab and Data: . Microbiology and Other Data: . Diagnostic Imaging: . Assess/Plan/Problems-Billing Assessment: Ms. 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 - Patient Problems (1) Discitis, unspecified, lumbosacral region Comment: - Completed 6 week course of Ertapenema started mid-March for L psoas abscess ; now presents with L4-L5 discitis/esteo - Continue Vancomycin and Cefepime as per ID recommendation - Blood cultures NGTD - Had back pain and RLE weakness on her prior admission - MRI L spine was negative for abscess; positive for L4-L5 nerve root impingement and she was seen by Neurosurgery at that time - Continue oxycodone SR 10mg BID and flexeril for spasms. Continue oxycodone 5mg and morphine prn - PICC ordered (2) COPD (chronic obstructive pulmonary disease) Comment: - Stable, remains on 3L NC since her last admission - No evidence of pneumonia - Recommend outpatient pulm consult and PFTs - Continue bronchodilators and inhaled steroids (3) Psoas abscess, left Comment: - Present on prior admission, drained by IR 04/04 - Fluid cx was negative, but blood cultures grew Fusobacterium nucleatum, which was treated with 6 week course of Ertapenem -Appears largely resolved on MRI. (4) Tobacco abuse Comment: -Continue nicotine patch (5) DVT prophylaxis Comment: - SQ Heparin (6) Full code status Comment: Status and Disposition: Inpatient. Anticipate discharge to home when medically stable.
[2019-05-19] MEDS: Heparin VIAL(*) 5000 UNITS/ML VIAL (FIVE THOUSAND) SUBCUT SCH ×2 (10:00→22:22)
[2019-05-19] MEDS: busPIRone TAB* 10 MG PO SCH ×2 (10:00→22:21)
[2019-05-19] MEDS: oxyCODONE SR TAB(*) 10 MG TAB.SR PO SCH ×2 (10:01→22:21)
[2019-05-19] MEDS: Escitalopram * 10 MG TAB PO SCH (10:01)
[2019-05-19] MEDS: Nicotine PATCH 14 MG/24 HR* PATCH TRANSDERM SCH (10:01)
--- NOTE | 2019-05-19 10:47 | CONS ---
CONSULTATION REPORT: DATE OF CONSULT: 05/19/19 REQUESTING PHYSICIAN: Dr. Myers. CONSULTING SERVICE: Infectious disease. REASON FOR CONSULTATION: Back pain. IMPRESSION: 1. Low back pain which has been persistent since the diagnosis of a psoas abscess, which was felt to be due to Fusobacterium which was found on her blood around that same time of her febrile illness. The abscess was 3 x 2 cm in the left psoas, found by CT. Aspiration was culture negative while on antibiotics for a few days. She was discharged home on Invanz, which she tolerated well, but had no improvement of back pain and worsening right leg weakness, which was felt to be due to L4-L5 disk protrusion, not clear if it totally explained all of her symptoms. She recently had what she felt was worsening weakness, increase in CRP a couple days after stopping antibiotics. She had an MRI of the lumbar spine that showed essential resolution of the prior psoas collection and findings compatible with diskitis, osteomyelitis of L4-L5, and an epidural phlegmon without epidural abscess. She had been on vancomycin and cefepime here. Her CRP is down to 10, to be fair it was 34 on the day of admission without any intervention between 05/12/19 and 05/14/19. I am not convinced she has a completely new infection or a flare of the prior one; however, because it involved the spine we would rather not take any chances. 2. Chronic back pain. 3. PENICILLIN allergy. RECOMMENDATIONS: PICC line and we will get her started on outpatient IV antibiotics again as she needs a daily infusion. She can have daptomycin 500 mg a day and ceftriaxone 1 g a day, oral Flagyl 500 mg twice a day by mouth for 4 more weeks. We will get weekly CBC, CMP, and CRP as well as a CK. HISTORY OF PRESENT ILLNESS: This is a 54-year-old woman with recent left psoas abscess, lumbar disk protrusion with low back pain and herniation. At the time of that illness, she had fusobacterium in her blood and a febrile illness. She had aspiration of the psoas collection, which showed no organisms on culture. She had been on antibiotics for a few days at that point. She was discharged home on Invanz, had some slight improvement in her pain which was felt to be severe. A couple of weeks later, she thought her right leg weakness was worse. Because of those symptoms, she had a followup CT abdomen and pelvis, which showed near resolution of the prior psoas abscess. When her CRP increased, we recommended she come into the hospital on 05/14/19 and an MRI was done with findings as noted above. Her blood cultures here are negative and she had been afebrile. Her CRP drawn the day she came into the hospital was 34. Yesterday, it was 10 while she has been on vancomycin and cefepime here. Her back pain is unchanged. Her right leg weakness is unchanged. No fevers, chills, or sweats. PAST MEDICAL HISTORY: 1. Chronic back pain. 2. Left psoas abscess. 3. Anxiety. 4. COPD. 5. Status post carpal tunnel release. MEDICATIONS: 1. Tylenol. 2. Albuterol. 3. BuSpar. 4. Cefepime 2 g every 12 hours. 5. Celexa. 6. Heparin subcutaneous injection. 7. Nicotine patch. 8. Vancomycin 1 g every 12 hours. ALLERGIES: PENICILLIN and NABUMETONE. FAMILY HISTORY: No recurrent infections. SOCIAL HISTORY: She lives in [facility]. She is a smoker. No injection drugs. REVIEW OF SYSTEMS: All negative, except as noted above to a 12-point review of systems. PHYSICAL EXAM: Vital Signs: Temperature 37, heart rate 80, respiratory rate 20 , blood pressure 112/55, oxygen saturation 91% on 3 L by nasal cannula. In general, she is awake, not in distress. Neurologic: She is oriented x3. Follows all commands. Sensation is intact to light touch in both feet. There is no lower extremity clonus bilaterally. Strength is 5/5 in the quadriceps, tibialis anterior, gastrocnemius bilaterally. Neck: Supple without mass. Heart: Regular rate and rhythm without murmurs, rubs, or gallops. Lungs: Clear to auscultation bilaterally. Abdomen: Soft, nontender, nondistended. There are bowel sounds present. Skin: There is no rash or splinter hemorrhage. Musculoskeletal: There is lumbar spine tenderness to palpation. There is no joint synovitis. DIAGNOSTIC STUDIES/LAB DATA: Laboratory Data: White blood cell count 3, hemoglobin 12, platelets 270. Creatinine is 0.4, CRP 11. Please see impression and recommendations outlined above. Thank you for asking me to see Ms. Avlarez in consultation. [id number]/[facility] #: [id number] [facility]PITALRick
[2019-05-19] MEDS: Cyclobenzaprine TAB* 10 MG PO PRN ×2 (11:06→22:22)
[2019-05-19] MEDS: cefTRIAXone(*) 1 GM in NS 0.9% 50 ML* 50 ML IVPB SCH (15:18)
[2019-05-19] MEDS ORDERED: Diltiazem TAB* 30 MG PO ONE (16:54)
[2019-05-19] MEDS: Mometasone 220 MCG MDI INH SCH (20:23)
[2019-05-19] MEDS: Nicotine Patch Removal NOTE PATCH OFF SCH (22:23)
[2019-05-20] MEDS: Nicotine PATCH 14 MG/24 HR* PATCH TRANSDERM SCH (08:18)
[2019-05-20] MEDS: Heparin VIAL(*) 5000 UNITS/ML VIAL (FIVE THOUSAND) SUBCUT SCH ×2 (08:18→20:58)
[2019-05-20] MEDS: busPIRone TAB* 10 MG PO SCH ×2 (08:19→20:58)
[2019-05-20] MEDS: Escitalopram * 10 MG TAB PO SCH (08:19)
[2019-05-20] MEDS: oxyCODONE SR TAB(*) 10 MG TAB.SR PO SCH ×2 (08:19→20:58)
[2019-05-20] MEDS: Tiotropium Brom/Olodaterol MDI INH SCH (08:22)
[2019-05-20] MEDS ORDERED: Vancomycin Trough Check NOTE FOLLOW UP ONE (10:30)
[2019-05-20 11:03] LABS: ABS Eosinophils 0.1 10^3/ul (0-0.6); ABS Lymphocytes 1.2 10^3/ul (1.0-4.8); ABS Monocytes 0.4 10^3/ul (0-0.8); ABS Neutrophils 2.2 10^3/ul (1.5-7.7); Eosinophil % 1.8 %; Hematocrit 38 % (35-47); Hemoglobin 13.2 g/dL (12.0-16.0); Lymphocyte % 30.8 %; Mean Corpuscular HGB Conc 35 g/dL (31-36); Mean Corpuscular Hemoglobin 33 pg (27-31); Mean Corpuscular Volume 95 fL (80-97); Nucleated Red Blood Cells % 0.2; Platelet Count 299 10^3/uL (150-450); Red Blood Count 4.02 10^6 /uL (3.70-4.87); Red Cell Distribution Width 13 % (10-15); White Blood Count 3.8 10^3/uL (3.5-10.8)
[2019-05-20 11:30] LABS: BUN/Creatinine Ratio 18.4 (8-20); EGFR African American 158.1 (>60); EGFR Non-African American 130.6 (>60); Potassium 4.1 mmol/L (3.5-5.0)
[2019-05-20] MEDS: Vancomycin(*) 1,000 MG in NS 0.9% 250 ML* 250 ML IV SCH (11:48)
[2019-05-20] MEDS: cefTRIAXone(*) 1 GM in NS 0.9% 50 ML* 50 ML IVPB SCH ×2 (13:00→14:54)
[2019-05-20] MEDS ORDERED: Vancomycin(*) 1,250 MG in NS 0.9% 250 ML* 250 ML IV SCH (13:06)
--- OUTSIDE RECORDS SUMMARY | 2019-05-20 14:16 | XMS REPORT | Continuity of Care Document ---
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 Medicine Problems Description No Information Available Social History Type Date Description Comments Sex Unknown ETOH Use Denies alcohol use Tobacco Use Start: Unknown Heavy tobacco smoker smoked x 44 yrs (more than 10 cigarettes/day) Recreational Drug Use Never Used Drugs Smoking Status Reviewed: 05/08/19 Heavy tobacco smoker smoked x 44 yrs (more than 10 cigarettes/day) Exercise Type/Frequency Exercises regularly Allergies, Adverse Reactions, Alerts Active Allergies Reaction Severity Comments Date Penicillin G childhood reaction 04/23/2019 Relafen 05/08/2019 Medications Active Medications SIG Qnty Indications Ordering Date Provider Ertapenem Sodium 1 gm iv daily at Unknown 1gm Guido x 4-6 Solution Rec weeks Buspirone HCL take 1 tablet Unknown 5mg twice a day for 3 Tablets days then increase to 2 tablets twice a day Hydromorphone HCL 1 tab by mouth Unknown 2mg four times a day Tablets Albuterol Sulfate HFA 2 puffs by mouth 8.500gm Unknown every day as 108(90Base) mcg/Act needed Aerosol Escitalopram Oxalate Take 1 Tablet By Unknown Mouth AT Bedtime 10mg Tablets For Anxiety Depression Qvar Redihaler 2 puffs by mouth Unknown twice a day 40mcg/Act Aerosol Bevespi Aerosphere 2 puff twice a day Unknown 9-4.8mcg/Act Aerosol Immunizations Description No Information Available Vital Signs Date Vital Result Comment 05/08/2019 10:32am Height 64 inches 5'4" Weight 136.00 lb per pt Heart Rate 84 /min BP Systolic Sitting 132 mmHg BP Diastolic Sitting 70 mmHg Respiratory Rate 14 /min Body Temperature 99.5 F BMI (Body Mass Index) 23.3 kg/m2 05/05/2019 2:15pm Height 64 inches 5'4" Weight 136.00 lb Heart Rate 84 /min BP Systolic 120 mmHg BP Diastolic 66 mmHg Pain Level 8 Right back hip,groin leg BMI (Body Mass Index) 23.3 kg/m2 Results Description No Information Available Procedures Date Code Description Status 04/02/2019 74508 ECHO Transthorasic Realtime 2D W Doppler & Color Flow Hosp Completed Medical Devices Description No Information Available Encounters Type Date Location Provider Dx Diagnosis Office Visit 04/24/2019 [facility] Pauline Arce K68.12 Psoas muscle 9:30a Infectious Johnston, FRESH [employer]S CAKE DECORATOR abscess Diseases R78.81 Bacteremia Z79.2 physical therapy technician (current) use of antibiotics M47.896 Other spondylosis, lumbar region Office Visit 04/08/2019 10:26a [facility] Pauline Arce K68.12 Psoas muscle Infectious Johnston, FR[employer] CAKE DECORATOR abscess Diseases R78.81 Bacteremia B96.89 Oth bacterial agents as the cause of diseases classd elswhr Office Visit 04/07/2019 10:25a [facility] Pauline Arce K68.12 Psoas muscle Infectious Johnston, [employer] CAKE DECORATOR abscess Diseases R78.81 Bacteremia B96.89 Oth bacterial agents as the cause of diseases classd elswhr M54.9 Dorsalgia, unspecified Office Visit 04/07/2019 9:30a [facility] Nereida Bonilla68.12 Psoas muscle Assockellie M.D. abscess Hospitalists R78.81 Bacteremia J44.0 Chr obstructive pulmon disease with (acute) lower resp infct J90 Pleural effusion, not elsewhere classified Office Visit 04/06/2019 9:30a [facility] Nereida Bonilla68.12 Psoas muscle Assockellie M.D. abscess Hospitalists J90 Pleural effusion, not elsewhere classified M54.9 Dorsalgia, unspecified Office Visit 04/05/2019 9:29a [facility] Archana Smalls, K68.12 Psoas muscle Assockellie M.D. abscess Hospitalists J18.9 Pneumonia, unspecified organism J44.1 Chronic obstructive pulmonary disease w (acute) exacerbation J90 Pleural effusion, not elsewhere classified Office Visit 04/04/2019 2:06p [facility] Pauline Arce K68.12 Psoas muscle Infectious Johnston, [employer] CAKE DECORATOR abscess Diseases M54.9 Dorsalgia, unspecified R78.81 Bacteremia Office Visit 04/04/2019 9:29a [facility] K68.12 Psoas muscle Assoc,PORFIRIO Oakley abscess Hospitalists J18.9 Pneumonia, unspecified organism J44.1 Chronic obstructive pulmonary disease w (acute) exacerbation J90 Pleural effusion, not elsewhere classified Office Visit 04/03/2019 2:04p [facility] Elijah Leos M54.9 Dorsalgia, Infectious Toshia Vazquez unspecified Diseases R78.81 Bacteremia B96.89 Oth bacterial agents as the cause of diseases classd elswhr Office Visit 04/03/2019 [facility] J18.9 Pneumonia, 9:28a Assoc,PORFIRIO Oakley unspecified Hospitalists organism R78.81 Bacteremia J44.1 Chronic obstructive pulmonary disease w (acute) exacerbation Office Visit 04/02/2019 [facility] J18.9 Pneumonia, 9:28a Assoc,PORFIRIO Oakley unspecified Hospitalists organism R78.81 Bacteremia J44.1 Chronic obstructive pulmonary disease w (acute) exacerbation Office Visit 04/01/2019 2:02p [facility] Elijah Leos R78.81 Bacteremia Infectious Diseases Toshia Vazquez B96.89 Oth bacterial agents as the cause of diseases classd elsr M54.6 Pain in thoracic spine M54.5 Low back pain R05 Cough J90 Pleural effusion, not elsewhere classified J44.9 Chronic obstructive pulmonary disease, unspecified K03.81 Cracked tooth Office Visit 04/01/2019 [facility] J18.9 Pneumonia, 9:27a Assoc,PORFIRIO Oakley unspecified Hospitalists organism R78.81 Bacteremia J44.1 Chronic obstructive pulmonary disease w (acute) exacerbation M54.2 Cervicalgia Office Visit 03/31/2019 [facility] Tania A41.9 Sepsis, 9:27a Assockellie PA unspecified Hospitalists organism R65.21 Severe sepsis with septic shock J18.9 Pneumonia, unspecified organism J44.1 Chronic obstructive pulmonary disease w (acute) exacerbation R50.9 Fever, unspecified Office Visit 03/30/2019 [facility] Archana Smalls, A41.9 Sepsis, 9:26a Assockellie M.D. unspecified Hospitalists organism R65.21 Severe sepsis with septic shock R50.9 Fever, unspecified J44.1 Chronic obstructive pulmonary disease w (acute) exacerbation Office Visit 03/30/2019 9:33a Intensivists Mel Arriaga J44.1 Chronic obstructive MD pulmonary disease w (acute) exacerbation A41.9 Sepsis, unspecified organism D69.6 Thrombocytopenia, unspecified E83.51 Hypocalcemia Assessments Date Code Description Provider 05/08/2019 K68.12 Psoas muscle abscess Pauline Johnston, MARISOL 05/08/2019 Z79.2 physical therapy technician (current) use of Pauline Johnston 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 05/05/2019 M54.16 Lumbar radiculopathy PORFIRIO Vasquez 05/05/2019 M47.896 Lumbar spondylosis PORFIRIO Vasquez 04/24/2019 K68.12 Psoas muscle abscess Pauline Johnston NP 04/24/2019 R78.81 Bacteremia Pauline Johnston NP 04/24/2019 Z79.2 senior care (current) use of Pauline Johnston 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 04/24/2019 M47.896 Lumbar spondylosis Pauline Johnston NP 04/23/2019 M54.16 Lumbar radiculopathy PORFIRIO Vasquez 04/23/2019 M47.896 Lumbar spondylosis PORFIRIO Vasquez 04/08/2019 K68.12 Psoas muscle abscess Pauline Johnston NP 04/08/2019 K68.12 Psoas muscle abscess PORFIRIO Mckeon 04/08/2019 R78.81 Bacteremia Pauline Johnston, FR[employer]S CAKE DECORATOR 04/08/2019 A41.9 Sepsis, unspecified organism PORFIRIO Mckeon 04/08/2019 B96.89 Other specified bacterial agents as Pauline Johnston NP the cause of diseases classified elsewhere 04/08/2019 R65.21 Severe sepsis with septic shock PORFIRIO Mckeon 04/08/2019 J96.01 Acute respiratory failure with PORFIRIO Mckeon hypoxia 04/08/2019 B96.89 Other specified bacterial agents as PORFIRIO Mckeon the cause of diseases classified elsewhere 04/07/2019 K68.12 Psoas muscle abscess Pauline Johnston, MARISOL 04/07/2019 K68.12 Psoas muscle abscess Archana Smalls M.D. 04/07/2019 R78.81 Bacteremia Pauline Johnston, MARISOL 04/07/2019 R78.81 Bacteremia Archana Smalls M.D. 04/07/2019 B96.89 Other specified bacterial agents as Pauline Johnston NP the cause of diseases classified elsewhere 04/07/2019 J44.0 Chronic obstructive pulmonary disease Archana Smalls M.D. with (acute) lower respiratory infection 04/07/2019 M54.9 Dorsalgia, unspecified Pauline Johnston, FRESH FO[employer] CAKE DECORATOR 04/07/2019 J90 Pleural effusion, not elsewhere Archana Smalls M.D. classified 04/06/2019 K68.12 Psoas muscle abscess Archana Smalls M.D. 04/06/2019 J90 Pleural effusion, not elsewhere Archana Smalls M.D. classified 04/06/2019 M54.9 Dorsalgia, unspecified Archana Smalls M.D. 04/05/2019 K68.12 Psoas muscle abscess Archana Smalls M.D. 04/05/2019 J18.9 Pneumonia, unspecified organism Archana Smalls M.D. 04/05/2019 J44.1 Chronic obstructive pulmonary disease Archana Smalls M.D. with (acute) exacerbation 04/05/2019 J90 Pleural effusion, not elsewhere Archana Smalls M.D. classified 04/04/2019 K68.12 Psoas muscle abscess Tania Mcbride PA 04/04/2019 J18.9 Pneumonia, unspecified organism Tania Mcbride PA 04/04/2019 K68.12 Psoas muscle abscess Paulinemel Johnston, FR[employer] CAKE DECORATOR 04/04/2019 J44.1 Chronic obstructive pulmonary disease PORFIRIO Mckeon with (acute) exacerbation 04/04/2019 J90 Pleural effusion, not elsewhere Tania Mcbride PA classified 04/04/2019 M54.9 Dorsalgia, unspecified Pauline Johnston, FR[employer] CAKE DECORATOR 04/04/2019 R78.81 Bacteremia Pauline Johnston, FRESH FO[employer]S CAKE DECORATOR 04/03/2019 J18.9 Pneumonia, unspecified organism Tania Mcbride PA 04/03/2019 M54.9 Dorsalgia, unspecified Rolando Vazquez M.D. 04/03/2019 R78.81 Bacteremia Tania Mcbride PA 04/03/2019 R78.81 Bacteremia Rolando Vazquez M.D. 04/03/2019 J44.1 Chronic obstructive pulmonary disease PORFIRIO Mckeon with (acute) exacerbation 04/03/2019 B96.89 Other specified bacterial agents as Rolando Vazquez M.D. the cause of diseases classified elsewhere 04/02/2019 R06.02 Shortness of breath Christy Lopez M.D. 04/02/2019 J18.9 Pneumonia, unspecified organism Tania Mcbride PA 04/02/2019 R78.81 Bacteremia Tania Mcbride PA 04/02/2019 J44.1 Chronic obstructive pulmonary disease PORFIRIO Mckeon with (acute) exacerbation 04/01/2019 J18.9 Pneumonia, unspecified organism Tania Mcbride PA 04/01/2019 R78.81 Bacteremia Rolando Vazquez M.D. 04/01/2019 R78.81 Bacteremia Tania Mcbride PA 04/01/2019 B96.89 Other specified bacterial agents as Rolando Vazquez M.D. the cause of diseases classified elsewhere 04/01/2019 J44.1 Chronic obstructive pulmonary disease PORFIRIO Mckeon with (acute) exacerbation 04/01/2019 M54.6 Pain in thoracic spine Rolando Vazquez M.D. 04/01/2019 M54.2 Cervicalgia PORFIRIO Mckeon 04/01/2019 M54.5 Low back pain Rolando Vazquez M.D. 04/01/2019 R05 Cough Rolando Vazquez M.D. 04/01/2019 J90 Pleural effusion, not elsewhere Rolando Vazquez M.D. classified 04/01/2019 J44.9 Chronic obstructive pulmonary Rolando Vazquez M.D. disease, unspecified 04/01/2019 K03.81 Cracked tooth Rolando Vazquez M.D. 03/31/2019 A41.9 Sepsis, unspecified organism PORFIRIO Mckeon 03/31/2019 R65.21 Severe sepsis with septic shock PORFIRIO Mckeon 03/31/2019 J18.9 Pneumonia, unspecified organism PORFIRIO Mckeon 03/31/2019 J44.1 Chronic obstructive pulmonary disease PORFIRIO Mckeon with (acute) exacerbation 03/31/2019 R50.9 Fever, unspecified PORFIRIO Mckeon 03/30/2019 J44.1 Chronic obstructive pulmonary disease Mel Arriaga MD with (acute) exacerbation 03/30/2019 A41.9 Sepsis, unspecified organism Mel Arriaga MD 03/30/2019 A41.9 Sepsis, unspecified organism Archana Smalls M.D. 03/30/2019 D69.6 Thrombocytopenia, unspecified Mel Arriaga MD 03/30/2019 E83.51 Hypocalcemia Mel Arriaga MD 03/30/2019 R65.21 Severe sepsis with septic shock Archana Smalls M.D. 03/30/2019 R50.9 Fever, unspecified Archana Smalls M.D. 03/30/2019 J44.1 Chronic obstructive pulmonary disease Archana Smalls M.D. with (acute) exacerbation Plan of Treatment Future Appointment(s):06/04/2019 1:30 pm - Pauline Johnston NP at [facility]37/26/2019 1:00 pm - Geovany Cardoza MD at [facility]05/08/2019 - Pauline Johnston, NPK68.12 Psoas muscle abscessFollow up:3 [id number] physical therapy technician (current) use of antibiotics Functional Status Description No Information Available Mental Status Description No Information Available Referrals Description No Information Available
--- OUTSIDE RECORDS SUMMARY | 2019-05-20 14:16 | XMS REPORT | Continuity of Care Document ---
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 [phone] Medicine Problems Description No Information Available Social History Type Date Description Comments Sex Unknown Tobacco Use Start: Unknown Heavy tobacco smoker (more than 10 cigarettes/day) Smoking Status Reviewed: 04/23/19 Heavy tobacco smoker (more than 10 cigarettes/day) Allergies, Adverse Reactions, Alerts Active Allergies Reaction Severity Comments Date Penicillin G 04/23/2019 Medications Active Medications SIG Qnty Indications Ordering Date Provider Ertapenem Sodium 1 gm iv daily at Unknown 1gm Guido x 4-6 Solution Rec weeks Buspirone HCL take 1 tablet Unknown 5mg Tablets twice a day for 3 days then increase to 2 tablets twice a day Hydromorphone HCL 1 tab by mouth Unknown 2mg four times a day Tablets Escitalopram Oxalate 1 by mouth every Unknown 5mg day Tablets Albuterol Sulfate HFA 2 puffs by mouth 8.500gm Unknown every day as 108(90Base) mcg/Act needed Aerosol Immunizations Description No Information Available Vital Signs Date Vital Result Comment 04/23/2019 1:51pm Height 64 inches 5'4" Weight 140.00 lb Heart Rate 88 /min BP Systolic Sitting 118 mmHg BP Diastolic Sitting 70 mmHg BMI (Body Mass Index) 24.0 kg/m2 Results Description No Information Available Procedures Date Code Description Status 04/02/2019 54662 ECHO Transthorasic Realtime 2D W Doppler & Color Flow Hosp Completed Medical Devices Description No Information Available Encounters Type Date Location Provider Dx Diagnosis Office Visit 04/23/2019 [facility], M54.16 Radiculopathy, 1:[facility] lumbar region M47.896 Other spondylosis, lumbar region Office Visit 04/07/2019 9:30a [facility] Archana Smalls K68.12 Psoas muscle Assoc,kellie Pope abscess Hospitalists R78.81 Bacteremia J44.0 Chr obstructive pulmon disease with (acute) lower resp infct J90 Pleural effusion, not elsewhere classified Office Visit 04/06/2019 9:30a [facility] Nereida Bonilla68.12 Psoas muscle Assoc,kellie Pope abscess Hospitalists J90 Pleural effusion, not elsewhere classified M54.9 Dorsalgia, unspecified Office Visit 04/05/2019 9:29a [facility] Archana Smalls K68.12 Psoas muscle Assoc,kellie Pope abscess Hospitalists J18.9 Pneumonia, unspecified organism J44.1 Chronic obstructive pulmonary disease w (acute) exacerbation J90 Pleural effusion, not elsewhere classified Office Visit 04/04/2019 2:06p [facility] Elijah Arce K68.12 Psoas muscle Infectious Vickie, MALT HOUSE SUPERVISOR abscess Diseases M54.9 Dorsalgia, unspecified R78.81 Bacteremia [facility] Psoas muscle Assoc,PORFIRIO Oakley abscess Hospitalists J18.9 Pneumonia, unspecified organism J44.1 Chronic obstructive pulmonary disease w (acute) exacerbation J90 Pleural effusion, not elsewhere classified Office Visit 04/03/2019 2:04p [facility] Elijah Leos M54.9 Dorsalgia, Infectious Toshia Vazquez unspecified Diseases R78.81 Bacteremia B96.89 Oth bacterial agents as the cause of diseases classd elswhr Office [facility] J18.9 Pneumonia, 9:28a Assoc,PORFIRIO Oakley unspecified Hospitalists organism R78.81 Bacteremia J44.1 Chronic obstructive pulmonary disease w (acute) exacerbation Office Visit 04/02/2019 [facility] J18.9 Pneumonia, 9:28a Assoc,PORFIRIO Oakley unspecified Hospitalists organism R78.81 Bacteremia J44.1 Chronic obstructive pulmonary disease w (acute) exacerbation Office Visit 04/01/2019 2:02p [facility] Rolando Leos R78.81 Bacteremia Infectious Diseases Toshia Vazquez B96.89 Ot bacterial agents as the cause of diseases classd elswhr M54.6 Pain in thoracic spine M54.5 Low back pain R05 Cough J90 Pleural effusion, not elsewhere classified J44.9 Chronic obstructive pulmonary disease, unspecified K03.81 Cracked tooth Office Visit 04/01/2019 [facility] J18.9 Pneumonia, 9:27a Assoc,PORFIRIO Oakley unspecified Hospitalists organism R78.81 Bacteremia J44.1 Chronic obstructive pulmonary disease w (acute) exacerbation M54.2 Cervicalgia Office Visit 03/31/2019 [facility] A41.9 Sepsis, 9:27a Assoc,PORFIRIO Oakley unspecified Hospitalists organism R65.21 Severe sepsis with septic shock J18.9 Pneumonia, unspecified organism J44.1 Chronic obstructive pulmonary disease w (acute) exacerbation R50.9 Fever, unspecified Office Visit 03/30/2019 [facility] Archana Smalls, A41.9 Sepsis, 9:26a Asskellie luu M.D. unspecified Hospitalists organism R65.21 Severe sepsis with septic shock R50.9 Fever, unspecified J44.1 Chronic obstructive pulmonary disease w (acute) exacerbation Office Visit 03/30/2019 9:33a [facility] Mel Arriaga J44.1 Chronic obstructive MD pulmonary disease w (acute) exacerbation A41.9 Sepsis, unspecified organism D69.6 Thrombocytopenia, unspecified E83.51 Hypocalcemia Assessments Date Code Description Provider 04/23/2019 M54.16 Lumbar radiculopathy PORFIRIO Vasquez 04/23/2019 M47.896 Lumbar spondylosis PORFIRIO Vasquez 04/08/2019 K68.12 Psoas muscle abscess PORFIRIO Mckeon 04/08/2019 A41.9 Sepsis, unspecified organism PORFIRIO Mckeon 04/08/2019 R65.21 Severe sepsis with septic shock PORFIRIO Mckeon 04/08/2019 J96.01 Acute respiratory failure with PORFIRIO Mckeon hypoxia 04/08/2019 B96.89 Other specified bacterial agents as PORFIRIO Mckeon the cause of diseases classified elsewhere 04/07/2019 K68.12 Psoas muscle abscess Archana Smalls M.D. 04/07/2019 R78.81 Bacteremia Archana Smalls M.D. 04/07/2019 J44.0 Chronic obstructive pulmonary disease Archana Smalls M.D. with (acute) lower respiratory infection 04/07/2019 J90 Pleural effusion, not elsewhere Archana [...] M.D. classified 04/04/2019 K68.12 Psoas muscle abscess PORFIRIO Mckeon 04/04/2019 J18.9 Pneumonia, unspecified organism PORFIRIO Mckeon 04/04/2019 K68.12 Psoas muscle abscess Pauline Johnston, MARISOL 04/04/2019 J44.1 Chronic obstructive pulmonary disease PORFIRIO Mckeon with (acute) exacerbation 04/04/2019 J90 Pleural effusion, not elsewhere PORFIRIO Mckeon classified 04/04/2019 M54.9 Dorsalgia, unspecified Pauline Johnston, MARISOL 04/04/2019 R78.81 Bacteremia Pauline Johnston, MALT HOUSE SUPERVISOR 04/03/2019 J18.9 Pneumonia, unspecified organism PORFIRIO Mckeon 04/03/2019 M54.9 Dorsalgia, unspecified Rolando Vazquez M.D. 04/03/2019 R78.81 Bacteremia PORFIRIO Mckeon 04/03/2019 R78.81 Bacteremia Rolando Vazquez M.D. 04/03/2019 J44.1 Chronic obstructive pulmonary disease PORFIRIO Mckeon with (acute) exacerbation 04/03/2019 B96.89 Other specified bacterial agents as Rolando Vazquez M.D. the cause of diseases classified elsewhere 04/02/2019 R06.02 Shortness of breath Christy Lopez M.D. 04/02/2019 J18.9 Pneumonia, unspecified organism PORFIRIO Mckeon 04/02/2019 R78.81 Bacteremia PORFIRIO Mckeon 04/02/2019 J44.1 Chronic obstructive pulmonary disease PORFIRIO Mckeon with (acute) exacerbation 04/01/2019 J18.9 Pneumonia, unspecified organism PORFIRIO Mckeon 04/01/2019 R78.81 Bacteremia Rolando Vazquez M.D. 04/01/2019 R78.81 Bacteremia PORFIRIO Mckeon 04/01/2019 B96.89 Other specified bacterial agents as [...] M.D. disease, unspecified 04/01/2019 K03.81 Cracked tooth oRlando Vazquez M.D. 03/31/2019 A41.9 Sepsis, unspecified organism [...] with (acute) exacerbation Plan of Treatment Future Appointment(s):06/23/2019 3:00 pm - Geovany Cardoza MD at [facility]04/24/2019 9:30 am - Pauline Johnston NP at [facility]85/06/2019 - Rock Cruz, PAM54.16 Radiculopathy, lumbar regionNew Therapy:Physical TherapyFollow up:Follow up with Dr. Cardoza for surgical consult.M47.896 Other spondylosis, lumbar region Functional Status Description No Information Available Mental Status Description No Information Available Referrals Description No Information Available
--- OUTSIDE RECORDS SUMMARY | 2019-05-20 14:16 | XMS REPORT | Continuity of Care Document ---
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 Medicine Problems Description No Information Available Social History Type Date Description Comments Sex Unknown Tobacco Use Start: Unknown Heavy tobacco smoker (more than 10 smoked x 44 yrs cigarettes/day) Smoking Status Reviewed: 04/24/19 Heavy tobacco smoker (more than 10 smoked x 44 yrs cigarettes/day) Allergies, Adverse Reactions, Alerts Active Allergies Reaction Severity Comments Date Penicillin G childhood reaction 04/23/2019 Medications Active Medications SIG Qnty Indications [...] every day as 108(90Base) mcg/Act needed Aerosol Diclofenac Sodium Destini 75mg Aury Huntley DO Tablets DR Escitalopram Oxalate Take 1 Tablet By Unknown Mouth AT Bedtime 10mg Tablets For Anxiety Depression Qvar Redihaler 2 puffs by mouth Unknown twice a day 40mcg/Act Aerosol Bevespi Aerosphere 2 puff twice a day Unknown 9-4.8mcg/Act Aerosol Immunizations Description No Information Available Vital Signs Date Vital Result Comment 04/24/2019 9:27am Height 64 inches 5'4" Weight 137.00 lb Heart Rate 84 /min BP Systolic Sitting 138 mmHg BP Diastolic Sitting 64 mmHg Respiratory Rate 14 /min Body Temperature 97.4 F BMI (Body Mass Index) 23.5 kg/m2 04/23/2019 1:51pm Height 64 inches 5'4" Weight 140.00 lb Heart Rate 88 /min BP Systolic Sitting 118 mmHg BP Diastolic Sitting 70 mmHg BMI (Body Mass Index) 24.0 kg/m2 Results Description No Information Available Procedures Date Code Description Status 04/02/2019 48449 ECHO Transthorasic Realtime 2D W Doppler & Color Flow Hosp Completed Medical Devices Description No Information Available Encounters Type Date Location Provider Dx Diagnosis Office Visit 04/08/2019 [facility] Pauline Arce K68.12 Psoas muscle 10:26a Infectious Johnston, MAINTENANCE SPECIALIST abscess Diseases R78.81 Bacteremia B96.89 Oth bacterial agents as the cause of diseases classd elswhr Office Visit 04/07/2019 10:25a [facility] Pauline Arce K68.12 Psoas muscle Infectious Johnston, MAINTENANCE SPECIALIST abscess Diseases R78.81 Bacteremia B96.89 Oth bacterial agents as the cause of diseases classd elsr M54.9 Dorsalgia, unspecified Office Visit 04/07/2019 9:30a [facility] Nereida Bonilla68.12 Psoas muscle Assoc,kellie Pope abscess Hospitalists R78.81 Bacteremia J44.0 Chr obstructive pulmon disease with (acute) lower resp infct J90 Pleural effusion, not elsewhere classified Office Visit 04/06/2019 9:30a [facility] Nereida Bonilla68.12 Psoas muscle Assoc,kellie Pope abscess Hospitalists J90 Pleural effusion, not elsewhere classified M54.9 Dorsalgia, unspecified Office Visit 04/05/2019 9:29a [facility] Nereida Bonilla68.12 Psoas muscle Assoc,kellie Pope abscess Hospitalists J18.9 Pneumonia, unspecified organism J44.1 Chronic obstructive pulmonary disease w (acute) exacerbation J90 Pleural effusion, not elsewhere classified Office Visit 04/04/2019 2:06p [facility] Pauline Arce K68.12 Psoas muscle Infectious Johnston, MAINTENANCE SPECIALIST abscess Diseases M54.9 Dorsalgia, unspecified R78.81 Bacteremia Office Visit 04/04/2019 9:29a [facility] K68.12 Psoas muscle Assoc,kellie Mcbride, [place] abscess Hospitalists J18.9 Pneumonia, unspecified organism J44.1 Chronic obstructive pulmonary disease w (acute) exacerbation J90 Pleural effusion, not elsewhere classified Office Visit 04/03/2019 2:04p [facility] Elijah Leos M54.9 Dorsalgia, Infectious Toshia Vaqzuez unspecified Diseases R78.81 Bacteremia B96.89 Oth bacterial agents as the cause of diseases classd elswhr Office Visit 04/03/2019 [facility] J18.9 Pneumonia, 9:28a Assoc,kellie Mcbride, [place] unspecified Hospitalists organism R78.81 Bacteremia J44.1 Chronic obstructive pulmonary disease w (acute) exacerbation Office Visit 04/02/2019 [facility] J18.9 Pneumonia, 9:28a Assoc,kellie Mcbride, [place] unspecified Hospitalists organism R78.81 Bacteremia J44.1 Chronic obstructive pulmonary disease w (acute) exacerbation Office Visit 04/01/2019 2:02p [facility] Elijah Leos R78.81 Bacteremia Infectious Diseases Toshia Vazquez B96.89 Oth bacterial agents as the cause of diseases classd elswhr M54.6 Pain in thoracic spine M54.5 Low back pain R05 Cough J90 Pleural effusion, not elsewhere classified J44.9 Chronic obstructive pulmonary disease, unspecified K03.81 Cracked tooth Office Visit 04/01/2019 [facility] J18.9 Pneumonia, 9:27a Assoc,pc Reed, [place] unspecified Hospitalists organism R78.81 Bacteremia J44.1 Chronic obstructive pulmonary disease w (acute) exacerbation M54.2 Cervicalgia Office Visit 03/31/2019 [facility] A41.9 Sepsis, 9:27a Assoc,pc Reed, [place] unspecified Hospitalists organism R65.21 Severe sepsis with septic shock J18.9 Pneumonia, unspecified organism J44.1 Chronic obstructive pulmonary disease w (acute) exacerbation R50.9 Fever, unspecified Office Visit 03/30/2019 [facility] Archana Serina, A41.9 Sepsis, 9:26a kellie Camarena M.D. unspecified Hospitalists organism R65.21 Severe sepsis with septic shock R50.9 Fever, unspecified J44.1 Chronic obstructive pulmonary disease w (acute) exacerbation Office Visit 03/30/2019 9:33a Intensivists Mel Arriaga, J44.1 Chronic obstructive MD pulmonary disease w (acute) exacerbation A41.9 Sepsis, unspecified organism D69.6 Thrombocytopenia, unspecified E83.51 Hypocalcemia Assessments Date Code Description Provider 04/24/2019 K68.12 Psoas muscle abscess Pauline Johnston NP 04/24/2019 R78.81 Bacteremia Pauline Johnston NP 04/24/2019 Z79.2 superintendent terminal (current) use of Pauline Johnston 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 04/24/2019 M47.896 Lumbar spondylosis Pauline Johnston NP 04/23/2019 M54.16 Lumbar radiculopathy PORFIRIO Vasquez 04/23/2019 M47.896 Lumbar spondylosis PORFIRIO Vasquez 04/08/2019 K68.12 Psoas muscle abscess Pauline Johnston NP 04/08/2019 K68.12 Psoas muscle abscess PORFIRIO Mckeon 04/08/2019 R78.81 Bacteremia Pauline Johnston NP 04/08/2019 A41.9 Sepsis, unspecified organism PORFIRIO Mckeon 04/08/2019 B96.89 Other specified bacterial agents as Pauline Johnston NP the cause of diseases classified elsewhere 04/08/2019 R65.21 Severe sepsis with septic shock PORFIRIO Mckeon 04/08/2019 J96.01 Acute respiratory failure with PORFIRIO Mckeon hypoxia 04/08/2019 B96.89 Other specified bacterial agents as PORFIRIO Mckeon the cause of diseases classified elsewhere 04/07/2019 K68.12 Psoas muscle abscess Pauline Johnston NP 04/07/2019 K68.12 Psoas muscle abscess Archana Smalls M.D. 04/07/2019 R78.81 Bacteremia Pauline Johnston, MARISOL 04/07/2019 R78.81 Bacteremia Archana Smalls M.D. 04/07/2019 B96.89 Other specified bacterial agents as Pauline Johnston, MARISOL the cause of diseases classified elsewhere 04/07/2019 J44.0 Chronic obstructive pulmonary disease Archana Smalls M.D. with (acute) lower respiratory infection 04/07/2019 M54.9 Dorsalgia, unspecified Pauline Johnston, MAINTENANCE SPECIALIST 04/07/2019 J90 Pleural effusion, not elsewhere Archana Smalls M.D. classified 04/06/2019 K68.12 Psoas muscle jaime Smalls M.D. 04/06/2019 J90 Pleural effusion, not [...] classified 04/04/2019 M54.9 Dorsalgia, unspecified Pauline Johnston, MAINTENANCE SPECIALIST 04/04/2019 R78.81 Bacteremia Pauline Johnston, MARISOL 04/03/2019 J18.9 Pneumonia, unspecified organism PORFIRIO Mckeon [...] organism PORFIRIO Mckeon 04/02/2019 R78.81 Bacteremia PORFIRIO Mckoen 04/02/2019 J44.1 Chronic obstructive pulmonary disease PORFIRIO [...] shock Archana Smalls M.D. 03/30/2019 R50.9 Fever, unspecbalbina Smalls M.D. 03/30/2019 J44.1 Chronic obstructive pulmonary disease Archana Smalls M.D. with (acute) exacerbation Plan of Treatment Future Appointment(s):05/08/2019 10:30 am - Pauline Johnston NP at [facility] For Infectious Inrgikno98/06/2020 3:00 pm - Geovany Cardoza MD at [facility]04/23/2019 - Rock Cruz, PAM54.16 Radiculopathy, lumbar regionNew Therapy:Physical TherapyFollow up:Follow up with Dr. Cardoza for surgical consult.M47.896 Other spondylosis, lumbar region Functional Status Description No Information Available Mental Status Description No Information Available Referrals Description No Information Available
--- OUTSIDE RECORDS SUMMARY | 2019-05-20 14:16 | XMS REPORT | Continuity of Care Document ---
:1965 External Reference #:[id number] Author Name PORFIRIO Vasquez (transmitted by agent of provider Neeta Durant) Address [address] [place] [address] Care Team Providers Name Role Phone Aury Georges DO - Family Care Team Information Resident Care Assistant [phone] Medicine Problems Description No Information Available Social History Type Date Description Comments Sex Unknown ETOH Use Denies alcohol use Tobacco Use Start: Unknown Heavy tobacco smoker smoked x 44 yrs (more than 10 cigarettes/day) Recreational Drug Use Never Used Drugs Smoking Status Reviewed: 05/05/19 Heavy tobacco smoker smoked x 44 yrs [...] Available Vital Signs Date Vital Result Comment 05/05/2019 2:15pm Height 64 inches 5'4" Weight 136.00 lb Heart Rate 84 /min BP Systolic 120 mmHg BP Diastolic 66 mmHg Pain Level 8 Right back hip,groin leg BMI (Body Mass Index) 23.3 kg/m2 04/24/2019 9:27am Height 64 inches 5'4" Weight 137.00 lb Heart Rate 84 /min BP Systolic Sitting 138 mmHg BP Diastolic Sitting 64 mmHg Respiratory Rate 14 /min Body Temperature 97.4 F BMI (Body Mass Index) 23.5 kg/m2 Results Description No Information Available Procedures Date Code Description Status 04/02/2019 04910 ECHO Transthorasic Realtime 2D W Doppler & Color Flow Hosp Completed Medical Devices Description No Information Available Encounters Type Date Location Provider Dx Diagnosis Office Visit 04/24/2019 [facility] Pauline Claude K68.12 Psoas muscle 9:30a Infectious Johnston, COMMUNICATIONS EQUIPMENT INSTALLER abscess Diseases R78.81 Bacteremia Z79.2 terminal computer operator (current) use of antibiotics M47.896 Other spondylosis, lumbar region Office Visit [facility] K68.12 Psoas muscle Infectious Johnston, COMMUNICATIONS EQUIPMENT INSTALLER abscess Diseases R78.81 Bacteremia B96.89 Oth bacterial agents as the cause of diseases classd elswhr Office Visit 04/07/2019 10:25a [facility] K68.12 Psoas muscle Infectious Johnston, COMMUNICATIONS EQUIPMENT INSTALLER abscess Diseases R78.81 Bacteremia B96.89 Oth bacterial agents as the cause of diseases classd elswhr M54.9 Dorsalgia, unspecified Office Visit 04/07/2019 9:30a [facility] Archana Smalls K68.12 Psoas muscle Assoc,kellie Pope abscess Hospitalists R78.81 Bacteremia J44.0 Chr obstructive pulmon disease with (acute) lower resp infct J90 Pleural effusion, not elsewhere classified Office Visit 04/06/2019 9:30a [facility] Nereida Bonilla68.12 Psoas muscle Assoc,kellie Pope abscess Hospitalists J90 Pleural effusion, not elsewhere classified M54.9 Dorsalgia, unspecified Office Visit 04/05/2019 9:29a [facility] Archana Smalls, K68.12 Psoas muscle Assoc,kellie Pope abscess Hospitalists J18.9 Pneumonia, unspecified organism J44.1 Chronic obstructive pulmonary disease w (acute) exacerbation J90 Pleural effusion, not elsewhere classified Office Visit 04/04/2019 2:06p [facility] Pauline Arce K68.12 Psoas muscle Infectious Johnston, COMMUNICATIONS EQUIPMENT INSTALLER abscess Diseases M54.9 Dorsalgia, unspecified R78.81 Bacteremia Office Visit 04/04/2019 9:29a [facility] K68.12 Psoas muscle Assoc,pc PORFIRIO Mcbride abscess Hospitalists J18.9 Pneumonia, unspecified organism J44.1 Chronic obstructive pulmonary disease w (acute) exacerbation J90 Pleural effusion, not elsewhere classified Office Visit 04/03/2019 2:04p [facility] Elijah Leos M54.9 Dorsalgia, Infectious Toshia Vazquez unspecified Diseases R78.81 Bacteremia B96.89 Oth bacterial agents as the cause of diseases classd elswhr Office Visit 04/03/2019 [facility] J18.9 Pneumonia, 9:28a Assoc,kellie Mcbride, [place] unspecified Hospitalists organism R78.81 Bacteremia J44.1 Chronic obstructive pulmonary disease w (acute) exacerbation Office Visit 04/02/2019 [facility] J18.9 Pneumonia, 9:28a Assoc,kellie Mcbride, [place] unspecified Hospitalists organism R78.81 Bacteremia J44.1 Chronic obstructive pulmonary disease w (acute) exacerbation Office Visit 04/01/2019 2:02p [facility] Elijah Leos R78.81 Bacteremia Infectious Diseases Toshia Vazquez B96.89 Oth bacterial agents as the cause of diseases classd elsr M54.6 Pain in thoracic spine M54.5 Low back pain R05 Cough J90 Pleural effusion, not elsewhere classified J44.9 Chronic obstructive pulmonary disease, unspecified K03.81 Cracked tooth Office Visit 04/01/2019 [facility]18.9 Pneumonia, 9:27a Assoc,pc Reed, [place] unspecified Hospitalists organism R78.81 Bacteremia J44.1 Chronic obstructive pulmonary disease w (acute) exacerbation M54.2 Cervicalgia Office Visit 03/31/2019 [facility] Tania A41.9 Sepsis, 9:27a Asskellie luu PA unspecified Hospitalists organism R65.21 Severe sepsis with septic shock J18.9 Pneumonia, unspecified organism J44.1 Chronic obstructive pulmonary disease w (acute) exacerbation R50.9 Fever, unspecified Office Visit 03/30/2019 [facility] Archana Smalls, A41.9 Sepsis, 9:26a Asskellie luu M.D. unspecified Hospitalists organism R65.21 Severe sepsis with septic shock R50.9 Fever, unspecified J44.1 Chronic obstructive pulmonary disease w (acute) exacerbation Office Visit 03/30/2019 9:33a Intensivists Mel Arriaga J44.1 Chronic obstructive MD pulmonary disease w (acute) exacerbation A41.9 Sepsis, unspecified organism D69.6 Thrombocytopenia, unspecified E83.51 Hypocalcemia Assessments Date Code Description Provider 05/05/2019 M54.16 Lumbar radiculopathy PORFIRIO Vasquez 05/05/2019 M47.896 Lumbar spondylosis PORFIRIO Vasquez 04/24/2019 K68.12 Psoas muscle abscess Pauline Johnston NP 04/24/2019 R78.81 Bacteremia Pauline Johnston NP 04/24/2019 Z79.2 half-way (current) use of Pauline Johnston 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 [...] Archana Smalls M.D. 04/07/2019 R78.81 Bacteremia Pauline Johnston NP 04/07/2019 R78.81 Bacteremia Archana Smalls M.D. 04/07/2019 B96.89 Other specified bacterial agents as Pauline Johnston NP the cause of diseases classified elsewhere 04/07/2019 J44.0 Chronic obstructive pulmonary disease Archana Smalls M.D. with (acute) lower respiratory infection 04/07/2019 M54.9 Dorsalgia, unspecified Pauline Johnston, MARISOL 04/07/2019 J90 Pleural effusion, not elsewhere Archana [...] 04/04/2019 K68.12 Psoas muscle abscess Pauline Johnston, COMMUNICATIONS EQUIPMENT INSTALLER 04/04/2019 J44.1 Chronic obstructive pulmonary disease PORFIRIO Mckeon with (acute) exacerbation 04/04/2019 J90 Pleural effusion, not elsewhere PORFIRIO Mckeon classified 04/04/2019 M54.9 Dorsalgia, unspecified Pauline Johnston, COMMUNICATIONS EQUIPMENT INSTALLER 04/04/2019 R78.81 Bacteremia Pauline Johnston, COMMUNICATIONS EQUIPMENT INSTALLER 04/03/2019 J18.9 Pneumonia, unspecified organism PORFIRIO Mckeon [...] with (acute) exacerbation Plan of Treatment Future Appointment(s):06/12/2019 1:00 pm - Geovany [facility]za MD at [facility]05/08/2019 10:30 am - Pauline Johnston NP at [facility] For Infectious Xfcxpxkw25/06/2020 3:00 pm - Geovany Cardoza MD at [facility]05/05/2019 - Sharmez Anthony, PAM54.16 Radiculopathy, lumbar regionNew Xrays:MRI Lumbar Spine W/O, Ordered: M47.896 Other spondylosis, lumbar region Functional Status Description No Information Available Mental Status Description No Information Available Referrals Description No Information Available
[2019-05-20] MEDS: oxyCODONE TAB* 5 MG TAB PO PRN ×2 (17:04→23:12)
--- NOTE | 2019-05-20 18:09 | PN ---
Subjective Date of Service: 05/20/19 Interval History: Ms. Alvarez denies SOB, cough, wheeze. She rates LBP at 7/10 currently; pain located mid lumbar to R side and radiated down lateral leg to front of calf. She has occasional dizziness. She notes a 30# weight loss since March and notes that this was unintentional, but she had poor appetite and decreased PO intake. She has no other complaints today. Family History: Unchanged from Admission Social History: Unchanged from Admission Past Medical History: Unchanged from Admission Objective Active Medications: Acetaminophen (Tylenol Tab*) 650 mg PO Q4H PRN PRN Reason: FEVER/HEADACHE Last Admin: 05/18/19 12:59 Dose: 650 mg Albuterol (Ventolin 2.5 Mg/3 Ml Neb.Denise*) 2.5 mg INH Q4H PRN PRN Reason: SOB/WHEEZING Buspirone HCl (Buspar Tab*) 10 mg PO BID PENDING SALE TO [facility] Last Admin: 05/20/19 08:19 Dose: 10 mg Cyclobenzaprine HCl (Flexeril Tab*) 5 mg PO TID PRN PRN Reason: muscle spasm Last Admin: 05/19/19 22:22 Dose: 5 mg Escitalopram Oxalate (Lexapro *) 10 mg PO DAILY PENDING SALE TO [facility] Last Admin: 05/20/19 08:19 Dose: 10 mg Heparin Sodium (Porcine) (Heparin Vial(*)) 5,000 units SUBCUT Q12HR PENDING SALE TO [facility] Last Admin: 05/20/19 08:18 Dose: 5,000 units Ceftriaxone Sodium 1 gm/ (Sodium Chloride) 50 mls @ 100 mls/hr IVPB Q24H PENDING SALE TO [facility] Last Admin: 05/20/19 14:54 Dose: 100 mls/hr Vancomycin HCl 1,250 mg/ (Sodium Chloride) 250 mls @ 166.667 mls/hr IVPB Q12H PENDING SALE TO [facility] Metronidazole (Flagyl Tab*) 500 mg PO BID PENDING SALE TO [facility] Mometasone Furoate (Asmanex 220 Mcg Mdi *) 2 puff INH QPM PENDING SALE TO [facility] Last Admin: 05/19/19 20:23 Dose: 2 puff Morphine Sulfate (Morphine Inj (Syringe)*) 4 mg IV Q4H PRN PRN Reason: PAIN - SEVERE Last Admin: 05/18/19 17:57 Dose: 4 mg Nicotine (Nicotine Patch 14 Mg/24 Hr*) 1 patch TRANSDERM DAILY PENDING SALE TO [facility] Last Admin: 05/20/19 08:18 Dose: Not Given Ondansetron HCl (Zofran Inj*) 4 mg IV Q6H PRN PRN Reason: NAUSEA Oxycodone HCl (Roxycodone Tab*) 5 mg PO Q6H PRN PRN Reason: PAIN - MODERATE Last Admin: 05/20/19 17:04 Dose: 5 mg Oxycodone HCl (Oxycontin(*)) 10 mg PO Q12HR PENDING SALE TO [facility] Last Admin: 05/20/19 08:19 Dose: 10 mg Pharmacy Consult (Vancomycin Per Pharmacy*) 1 note FOLLOW UP .VANC PER PHARMACY JEREMY; Protocol Pharmacy Profile Note (Nicotine Patch Removal Note*) 1 note PATCH OFF 2100 PENDING SALE TO [facility] Last Admin: 05/19/19 22:23 Dose: Not Given Pharmacy Profile Note (Vancomycin Trough Check) 1 note FOLLOW UP 1030 ONE Stop: 05/22/19 10:31 Tiotropium [place]/Olodaterol (Stiolto Respimat Inh [place] (60 Puff)) 2 puff INH DAILY PENDING SALE TO [facility] Last Admin: 05/20/19 08:22 Dose: 2 puff Vital Signs: Temp Pulse Resp BP Pulse Ox 97.8 F 66 18 108/61 94 05/20/19 15:15 05/20/19 15:15 05/20/19 17:04 05/20/19 15:15 05/20/19 15:15 Oxygen Devices in Use Now: Nasal Cannula Appearance: Ms. Alvarez is a middle-aged white female who is sitting up in bed. She appears comfortable, in no acute distress. Breathing comfortably with NC in place. Eyes: No Scleral Icterus, PERRLA Ears/Nose/Mouth/Throat: NL Teeth, Lips, Gums, Clear Oropharnyx, Mucous Membranes Moist Neck: NL Appearance and Movements; NL JVP, Trachea Midline Respiratory: Symmetrical Chest Expansion and Respiratory Effort, - - Diminished breath sounds with end expiratory wheeze Cardiovascular: NL Sounds; No Murmurs; No JVD, RRR, No Edema Abdominal: NL Sounds; No Tenderness; No Distention, No Hepatosplenomegaly Extremities: No Edema, No Clubbing, Cyanosis Neurological: Alert and Oriented x 3, NL Sensation, NL Muscle Strength and Tone - Nutrition: Malnutrition Diagnosis/Plan Malnutrition Assessment by Registered Dietitian: Malnutrition Assessment Clinical Characteristics Acute,Severe Malnutrition Assessment: 18.5% wt loss x 1-1.5 mo (severe) Criteria < or = 50% of EEE x > or = 5 days Malnutrition Assessment: Ensure Enlive @ BLD daily: 350 kcals, 20 g pro Interventions per serving Malnutrition Assessment: Goals 1. Intake will be adequate to promote stable wt / wt gain and preserve lean body mass Result Diagrams: 05/20/19 10:38 05/20/19 10:38 Additional Lab and Data: . Microbiology and Other Data: . Diagnostic Imaging: . Assess/Plan/Problems-Billing Assessment: Ms. 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 - Patient Problems (1) Discitis, unspecified, lumbosacral region Comment: - Completed 6 week course of Ertapenem started mid-March for L psoas abscess; now presents with L4-L5 discitis/esteo - Continue Vancomycin and Cefepime as per ID recommendation - Blood cultures NGTD - Had back pain and RLE weakness on her prior admission - MRI L spine was negative for abscess; positive for L4-L5 nerve root impingement and she was seen by Neurosurgery at that time - Continue oxycodone SR 10mg BID and flexeril for spasms. Continue oxycodone 5mg and morphine prn - PICC ordered and planned for placement in a.m. 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 (4) Tobacco abuse Comment: -Continue nicotine patch (5) DVT prophylaxis Comment: - SQ Heparin (6) Full code status Comment: Status and Disposition: Inpatient. Anticipate discharge to home when medically stable.
[2019-05-20] MEDS: Mometasone 220 MCG MDI INH SCH (20:09)
[2019-05-20] MEDS: metroNIDAZOLE TAB* 250 MG PO SCH (20:58)
[2019-05-20] MEDS: Nicotine Patch Removal NOTE PATCH OFF SCH (20:59)
[2019-05-20] MEDS: Cyclobenzaprine TAB* 10 MG PO PRN (23:11)
[2019-05-20] MEDS: Vancomycin(*) 1,250 MG in NS 0.9% 250 ML* 250 ML IVPB SCH (23:14)
--- NOTE | 2019-05-21 08:50 | PN ---
Progress Note - Progress Note Date of Service: 05/21/19 SOAP: Subjective: CC: Back pain HPI: Ms. Alvarez is a 54 yo female with PMH significant for chronic back pain, left psoas abscess, anxiety, and COPD who presented to the emergency room with complaints of back pain, and MRI sugesstive of L4-5 osteodiskitis and epidural phlegmon without abscess. Denies fever, chills, nausea, vomiting, or diarrhea. Denies loss of bowel or bladder control. Reports continued back pain, that is controlled with the current pain medication regimen that she is on. She reports that the right LE weakness worsens throughout the day once she has been up and ambulating. She continues to have numbness in the right anterior leg down to the ankle. Objective: Vital Signs - 8 hr 05/21/19 05/21/19 05/21/19 01:26 01:27 03:15 Temperature 98.2 F Pulse Rate 63 Respiratory 18 18 18 Rate Blood Pressure 99/53 (mmHg) O2 Sat by Pulse 95 Oximetry 05/21/19 07:15 Temperature 98.6 F Pulse Rate 66 Respiratory 15 Rate Blood Pressure 110/58 (mmHg) O2 Sat by Pulse 94 Oximetry Physical Exam: General: NAD, sitting up in bed Neurological: Alert and Oriented x4 HEENT: Moist MM, no thrush Cardiovascular: Heart rate regular Respiratory: Lung sounds clear, diminished Abdominal: Bowel sounds present; ABD soft, non tender and non distended MSK: Moves all extremities. Mild weakness noted in the right LE Skin: No rash Laboratory Results - last 24 hr 05/20/19 05/20/19 05/20/19 10:38 10:38 10:38 WBC 3.8 RBC 4.02 Hgb 13.2 Hct 38 MCV 95 MCH 33 H MCHC 35 RDW 13 Plt Count 299 MPV 7.0 L Neut % (Auto) 56.5 Lymph % (Auto) 30.8 [place] % (Auto) 10.3 Eos % (Auto) 1.8 Baso % (Auto) 0.6 Absolute Neuts (auto) 2.2 Absolute Lymphs (auto) 1.2 Absolute Monos (auto) 0.4 Absolute Eos (auto) 0.1 Absolute Basos (auto) 0.0 Absolute Nucleated RBC 0.0 Nucleated RBC % 0.2 Sodium 137 Potassium 4.1 Chloride 99 L Carbon Dioxide 32 Anion Gap 6 BUN 9 Creatinine 0.49 L Est GFR ( Amer) 158.1 Est GFR (Non-Af Amer) 130.6 BUN/Creatinine Ratio 18.4 Glucose 92 Calcium 9.0 Vancomycin Trough 12.6 Microbiology 05/14/19 20:37 Aerobic Blood Culture - Final Blood Venous No Growth Day 5 Anaerobic Blood Culture - Final No Growth Day 5 05/14/19 20:37 Aerobic Blood Culture - Final Blood Venous No Growth Day 5 Anaerobic Blood Culture - Final No Growth Day 5 Assessment: 1. Low back pain. Recently treated with 6 weeks of IV ABX for a left psoas abscess. L4-[address] and MRI. CRP normalized. Afebrile and no leukocytosis. Continues to have back pain, that is controlled with current medication regimen. Blood cultures with no growth. She has an appointment scheduled with neurosurgery on 06/12 outpatient. 2. Chronic back pain. 3. PCN allergy. Plan: Continue Vancomycin, ceftriaxone and Flagyl while in the hospital. Will get PICC line placed today. At discharge will plan to transition to Daptomycin 500 mg IV daily, Ceftriaxone 1 gm IV daily, and Flagyl 500 mg PO BID. Day 12/13 of ABX. She will need to have weekly labs while on IV ABX: CBC, CMP, CRP, and CK. Will discuss the case with Dr. Cardoza. She should followup with ID outpatient once she is discharged from [facility]. 25 minutes floor time > 50% was spent face to face with the patient discussing recommendations of IV ABX, followup labs, need to followup with Neurosurgery, followup with ID outpatient, and when to call the office.
[2019-05-21] MEDS: Tiotropium Brom/Olodaterol MDI INH SCH (09:41)
[2019-05-21] MEDS: Escitalopram * 10 MG TAB PO SCH (10:03)
[2019-05-21] MEDS: busPIRone TAB* 10 MG PO SCH (10:03)
[2019-05-21] MEDS: metroNIDAZOLE TAB* 250 MG PO SCH (10:03)
[2019-05-21] MEDS: oxyCODONE SR TAB(*) 10 MG TAB.SR PO SCH (10:05)
[2019-05-21] MEDS: Heparin VIAL(*) 5000 UNITS/ML VIAL (FIVE THOUSAND) SUBCUT SCH (10:07)
[2019-05-21 10:56] VITALS: BP 112/51
[2019-05-21] MEDS: Vancomycin(*) 1,250 MG in NS 0.9% 250 ML* 250 ML IVPB SCH (11:22)
[2019-05-21] MEDS: Nicotine PATCH 14 MG/24 HR* PATCH TRANSDERM SCH (11:48)
[2019-05-21] MEDS: cefTRIAXone(*) 1 GM in NS 0.9% 50 ML* 50 ML IVPB SCH (13:36)
--- NOTE | 2019-05-21 14:29 | DS ---
CC: Dr. Aury Georges; Dr. Rolando Larkin; Dr. Geovany Cardoza * DISCHARGE SUMMARY: DATE OF ADMISSION: 05/14/19 DATE OF DISCHARGE: 05/21/19 PRIMARY CARE PROVIDER: Dr. Aury Georges. INFECTIOUS DISEASE SPECIALIST: Dr. Rolando Larkin. NEUROSURGEON: Dr. Geovany Cardoza. ATTENDING PHYSICIAN: Dr. Yulisa Solis * (dictated by PORFIRIO Mckeon). DISCHARGE DIAGNOSIS: L4 to L5 osteo/diskitis. SECONDARY DIAGNOSES: 1. Chronic obstructive pulmonary disease. 2. Anxiety. 3. Recent admission from 03/30/19 to 04/08/19 for left psoas abscess, Fusobacterium bacteremia, septic shock, which was treated with IV ertapenem. STUDIES WHILE IN THE HOSPITAL: 1. Chest x-ray, impression: Mild interstitial pulmonary edema. Resolved right pleural effusion. 2. MRI T-spine with and without, impression: No evidence of epidural abscess or other acute abnormality. Widely patent central canal. 3. MRI L-spine with and without, impression: Findings compatible with diskitis /osteomyelitis at L4 to L5. Associated ventral epidural phlegmon without discrete epidural fluid collection. Inflammatory changes extend to the adjacent paraspinous soft tissue. 1 cm fluid collection involving the adjacent left psoas muscle. CONSULTATIONS WHILE IN THE HOSPITAL: Infectious Disease: Impression and recommendations: Low back pain persistent since diagnosis of psoas abscess, which was felt to be due to Fusobacterium found in blood. Abscess was 3 x 2 cm in left psoas by CT. Aspiration was culture negative. Discharged home on Invanz with no improvement in back pain and worsening of right leg weakness, which was felt to be due to L4 to L5 disk protrusion. Recently had what she felt was worsening weakness, increase in CRP a couple of days after stopping antibiotics. MRI of the L-spine showed essential resolution of prior psoas collection, findings compatible with diskitis, osteomyelitis of L4 to L5, and epidural phlegmon without epidural abscess, has been on vancomycin and cefepime here. CRP down to 10; to be fair, it was 34 on day of admission without any intervention between 05/12/19 and 05/14/19. I am not convinced she has a completely new infection or a flare of the prior one; however, because it involved spine, we would rather not take any chances. Recommend PICC line, start on outpatient IV antibiotics, daptomycin 500 mg a day, ceftriaxone 1 g a day, oral Flagyl 500 mg b.i.d. x4 weeks. Weekly CBC, CMP, CRP, CK. DISCHARGE MEDICATIONS: Home medications: 1. Albuterol 2.5 mg/30 mL nebulizer inhalation q.4 hours p.r.n. shortness of breath. 2. Beclomethasone 80 mcg MDI 2 puffs inhalation b.i.d. 3. Buspirone 10 mg p.o. b.i.d. 4. Escitalopram 10 mg p.o. daily. 5. Glycopyrrolate/formoterol 2 puffs inhalation b.i.d. 6. Hydromorphone HCL 1 mg p.o. q.6 hours p.r.n. pain. 7. Oxycodone 5 mg p.o. q.6 hours p.r.n. pain, MDD 4. New home medications: 1. Ceftriaxone 1 g IV daily. 2. Daptomycin 500 mg IV daily. 3. Metronidazole 500 mg p.o. b.i.d. 4. Cyclobenzaprine 5 mg p.o. t.i.d. p.r.n. muscle spasm. 5. Nicotine patch 14 mg transdermal daily p.r.n. cravings. 6. Oxycodone SR 10 mg p.o. q.12 hours p.r.n. HISTORY OF PRESENT ILLNESS/HOSPITAL COURSE: Ms. 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 She was on IV ertapenem outpatient for this and antibiotics were discontinued recently. Days later, she developed worsening right leg weakness, increased lower back pain. A CRP was drawn and was elevated. An outpatient CT of the abdomen and pelvis showed progressive endplate erosion/destruction at L4 to L5 compatible with diskitis/osteomyelitis and resolution of left psoas muscle abscess. For this, it was recommended that she urgently go to the ER for thoracic and lumbar imaging. A thoracic and lumbar MRI were obtained. Findings were compatible with diskitis/osteomyelitis at L4 to L5. The patient was then admitted. She was started on IV antibiotics, cefepime and vancomycin. She was eventually transitioned to vancomycin and ceftriaxone IV and oral Flagyl. She will continue antibiotic treatment with daptomycin and ceftriaxone IV, oral Flagyl for 28 days as recommended by infectious disease specialist. While on antibiotics, she will continue to have weekly CBC, CMP, CRP, and CK. At this time, the patient is complaining of change in baseline cough which is now productive with thick mucus. She denies fevers or chills. She does complain of congestion, rhinorrhea, postnasal drainage. She feels that her cough is due to irritation in the posterior pharynx from postnasal drainage. She does complain of occasional dizziness, which she has had since her last admission. She continues to have lumbar pain that radiates to the right hip, down the lateral right thigh, and anterior lower leg. She otherwise has no complaints. REVIEW OF SYSTEMS: A 14-point review of systems has been performed and all the pertinent positives and negatives are in the HPI. PHYSICAL EXAMINATION: Vital Signs: Temperature 97.4 temporal, heart rate 86, respiratory rate 18, oxygen saturation 91% on 3 L, blood pressure 112/51. General: Ms. Alvarez is a well-developed, well-nourished, middle-aged white female, who appears somewhat older than her stated age. She is sitting up in bed. She appears to be in no acute distress. She sounds congested but is breathing comfortably with nasal cannula in place. HEENT: PERRL. EOMI. Sclerae are nonicteric. Hearing is grossly intact. Oral mucous membranes are moist. There are no lesions. The posterior pharynx is mildly erythematous without noted postnasal drainage, otherwise clear. Tongue is at midline. Palate elevates symmetrically. Cardiovascular: Regular rate and rhythm with S1 , S2 present. No murmurs, rubs, clicks, or gallops. There is no JVD or peripheral edema. Pulmonary: Symmetrical chest expansion. No use of accessory muscles. Nasal cannula in place. Diminished breath sounds throughout with end-expiratory wheezing. Abdomen: Flat, bowel sounds in all quadrants, soft and nontender to palpation. Musculoskeletal: Tenderness to palpation at the lumbar area as well as to the right and lateral of the lumbar area. Full range of motion intact. Neuro: The patient is awake. She is alert and oriented x3. Cranial nerves II through XII grossly intact. Muscle strength 5/5 bilaterally in upper and lower extremities. Sensation is intact. DISCHARGE PLAN: Ms. Alvarez is stable for discharge to [facility]. CONDITION: Good. ACTIVITY: As tolerated. MEDICATIONS: 1. Daptomycin 500 mg IV. 2. Ceftriaxone 1 g IV. 3. Metronidazole 500 mg p.o. b.i.d. x28 days, today is day 6 of 28. EDUCATION: 1. Continue weekly CBC, CMP, CRP, CK while on antibiotics. 2. Follow up with primary care provider within 4 to 7 days of discharge. 3. Follow up with Infectious Disease, Dr. Rolando Larkin, as scheduled. 4. Follow up with Neurosurgery, Dr. Cardoza, as scheduled. 5. Return to the ER or nearest hospital for any concerning symptoms. This is a summarized report of a complex medical history and hospital stay. For further details, please see the entire medical record. TIME SPENT: Approximately 40 minutes was spent on this discharge, greater than half that time was spent [id number] with the patient discussing discharge plans and instructions. PORFIRIO CUEVAS [id number]/[facility] #: [id number] ANTHONY
[2019-05-22] MEDS ORDERED: Vancomycin Trough Check NOTE FOLLOW UP ONE (10:30)
== END 2019-05-21 14:50 | disposition swing bed (61) | DRG 344 ==
LOC: ED 19:31 → MED 23:34
PROVIDERS: ADMIT Internal Medicine; ATTEND Internal Medicine
PROC: 02HV33Z Insertion of Infusion Device into Superior Vena Cava, Percutaneous Approach (ICD-10-PCS; principal; 2019-05-21)
DX: M46.26 Osteomyelitis of vertebra, lumbar region (principal); E43 Unspecified severe protein-calorie malnutrition; J44.9 Chronic obstructive pulmonary disease, unspecified; F17.210 Nicotine dependence, cigarettes, uncomplicated; F41.9 Anxiety disorder, unspecified; M47.817 Spondylosis without myelopathy or radiculopathy, lumbosacral region; G89.29 Other chronic pain; R09.02 Hypoxemia; M46.46 Discitis, unspecified, lumbar region; Z88.0 Allergy status to penicillin; Z88.8 Allergy status to other drugs, medicaments and biological substances; Z68.22 Body mass index [BMI] 22.0-22.9, adult
CPT/HCPCS: 36415; 71046; 72157; 72158; 80048; 80053; 80202; 83605; 85025; 85652; 86140; 87040; 94640; 96372; 99283; A9270-GY; A9579; C1751; J0692; J0696; J1644; J2270; J3010; J3370; J3535

== ENCOUNTER 2019-08-12 05:45 | Inpatient (IN) | payer BC ==
[~2019-08-12 05:45] MED LIST: Buffered Lidocaine 1% SYRIN* 1 ML/SYRINGE INTRADERM ONE; Vancomycin(*) 1,000 MG in NS 0.9% 250 ML* 250 ML IVPB SCH
--- OUTSIDE RECORDS SUMMARY | 2019-08-12 05:48 | XMS REPORT | Continuity of Care Document ---
:1965 External Reference #:[id number] Author Name Pauline Johnston NP (transmitted by agent of provider Akua Rosario) Address [address] [place] [address] Care Team Providers Name Role Phone Sinai Peralta PA - Medical Care Team Information Consulting Technical Director [phone] Problems Description No Information Available Social History Type Date Description Comments Sex Unknown ETOH Use Denies alcohol use Tobacco Use Start: Unknown Heavy tobacco smoker smoked x 44 yrs (more than 10 cigarettes/day) Recreational Drug Use Never Used Drugs Smoking Status Reviewed: 07/31/19 Heavy tobacco smoker smoked x 44 yrs (more than 10 cigarettes/day) Exercise Type/Frequency Exercises regularly Allergies, Adverse Reactions, Alerts Active Allergies Reaction Severity Comments Date Penicillin G childhood reaction 04/23/2019 Relafen 05/08/2019 Diclofenac Diarrhea 06/04/2019 Medications Active Medications SIG Qnty Indications Ordering Date Provider Tlso Brace When out of bed M46.26 Vassilios 07/11/2019 after surgery MD Sony Tlso Brace When out of bed M46.26 Vassilios 06/04/2019 MD Sony Buspirone HCL take 1 tablet Unknown 5mg Tablets twice a day for 3 days then increase to 2 tablets twice a day Albuterol Sulfate HFA 2 puffs by mouth 8.500gm Unknown every day as 108(90Base) mcg/Act needed Aerosol Escitalopram Oxalate Take 1 Tablet By Unknown 10mg Mouth AT Bedtime Tablets For Anxiety Depression Gabapentin 1 by mouth three Unknown 300mg Capsules times a day Melatonin ER take one Unknown 3mg Tablets tablet/capsule by ER mouth at bedtime Benzonatate take one or two Unknown 100mg capsules every 6 Capsules hours as needed for cough. Ipratropium 1 unit every 4 Unknown Toyah/Albuterol hours as needed Sulfate 0.5-2.5(3)mg/3ML Solution Oxycodone HCL 1 tabs by mouth Unknown 5mg every 6 hours as Capsules needed pain Cyclobenzaprine HCL take 1 tab by Unknown 10mg mouth every 8 hrs Tablets Flovent Diskus Inhale 1 puff By Unknown Mouth Twice Daily 250mcg/Blist Aerosol For 30 Days Immunizations Description No Information Available Vital Signs Date Vital Result Comment 07/31/2019 10:46am Height 64 inches 5'4" Weight 131.00 lb Heart Rate 72 /min BP Systolic Sitting 136 mmHg BP Diastolic Sitting 70 mmHg Respiratory Rate 14 /min Body Temperature 98.0 F BMI (Body Mass Index) 22.5 kg/m2 07/11/2019 9:18am Height 64 inches 5'4" Weight 129.00 lb Heart Rate 94 /min BP Systolic 120 mmHg BP Diastolic 70 mmHg Pain Level 6 BMI (Body Mass Index) 22.1 kg/m2 Results Description No Information Available Procedures Date Code Description Status 04/02/2019 68918 ECHO Transthorasic Realtime 2D W Doppler & Color Flow Hosp Completed Medical Devices Description No Information Available Encounters Type Date Location Provider Dx Diagnosis Office Visit 06/04/2019 [facility] Vassilios M46.26 Osteomyelitis of 4:00p [facility] Andreas Cardoza MD vertebra, lumbar region M46.47 Discitis, unspecified, lumbosacral region [facility]elitis of 1:30p For Infectious Johnston, [employer]ING [employer] vertebra, lumbar Diseases region M46.47 Discitis, unspecified, lumbosacral region K68.12 Psoas muscle abscess Z79.2 [facility] (current) use of antibiotics [facility]elitis of 1:31p For Infectious Johnston, [employer] vertebra, lumbar Diseases region M46.46 Discitis, unspecified, lumbar region Office Visit 05/21[facility] M46.47 Discitis, 9:05a Assoc,PORFIRIO Oak[place] unspecified, Hospitalists lumbosacral region J44.9 Chronic obstructive pulmonary disease, unspecified [facility] Discitis, 9:05a kellie Camarena PA unspecified, Hospitalists lumbosacral region J44.9 Chronic obstructive pulmonary disease, unspecified Office Visit 05/19/2019 [facility] Rolando Leos M46.26 Osteomyelitis of 1:29p For Infectious Toshia Vazquez vertebra, lumbar Diseases region M46.46 Discitis, unspecified, lumbar region 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 unspecified, Hospitalists lumbosacral region J44.9 Chronic obstructive pulmonary disease, unspecified Office Visit 05/17/2019 9:00a [facility] Comfort Cooley, M46.47 Discitis, Assoc,pc N.P. unspecified, Hospitalists lumbosacral region J44.9 Chronic obstructive pulmonary disease, unspecified Office Visit 05/16/2019 9:00a [facility] Comfort Cooley, M46.47 Discitis, Assoc,pc N.P. unspecified, Hospitalists lumbosacral region J44.9 Chronic obstructive pulmonary disease, unspecified Office Visit 05/15/2019 [facility] M46.47 Discitis, 8:59a Asskellie luu M.D. 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 M47.26 Other spondylosis with radiculopathy, lumbar region Office Visit 05/05/2019 [facility] M51.27 Other 2:00p [facility] [place] intervertebral disc displacement, lumbosacral region M51.17 Intvrt disc disorders w radiculopathy, lumbosacral region M47.896 Other spondylosis, lumbar region Office Visit 04/24/2019 9:30a [facility] Claude K68.12 Psoas muscle Infectious Johnston, [employer] abscess Diseases R78.81 Bacteremia Z79.2 [facility] (current) use of antibiotics M47.896 Other spondylosis, lumbar region Office Visit 04/23/2019 [facility] M47.896 Other spondylosis, 1:30p [facility] [place] lumbar region M51.17 Intvrt disc disorders w radiculopathy, lumbosacral region Office Visit 04/08/2019 10:26a [facility] Claude K68.12 Psoas muscle Infectious Johnston, [employer] abscess Diseases R78.81 Bacteremia B96.89 Oth bacterial agents as the cause of diseases classd elswhr Office Visit 04/08/2019 9:31a [facility] K68.12 Psoas muscle Assoc,PORFIRIO Oak[place] abscess Hospitalists A41.9 Sepsis, unspecified organism R65.21 Severe sepsis with septic shock J96.01 Acute respiratory failure with hypoxia B96.89 Oth bacterial agents as the cause of diseases classd elswhr Office Visit 04/07/2019 9:30a [facility] Archana Smalls K68.12 Psoas muscle Assoc,pc Toshia abscess Hospitalists R78.81 Bacteremia J44.0 Chr obstructive pulmon disease with (acute) lower resp infct J90 Pleural effusion, not elsewhere classified Office Visit 04/07/2019 10:25a [facility] Pauline Claude K68.12 Psoas muscle Infectious Johnston, [employer] abscess Diseases R78.81 Bacteremia B96.89 Oth bacterial agents as the cause of diseases classd elsr M54.9 Dorsalgia, unspecified [facility]2019 [facility] K68.12 Psoas muscle Assoc,pc M.D. abscess Hospitalists J90 Pleural effusion, not elsewhere classified M54.9 Dorsalgia, unspecified Office Visit 04/05/2019 9:29a [facility] Archana Smalls, K68.12 Psoas muscle Assoc,pc M.DSummer abscess Hospitalists J18.9 Pneumonia, unspecified organism J44.1 Chronic obstructive pulmonary disease w (acute) exacerbation J90 Pleural effusion, not elsewhere classified Office Visit 04/04/2019 2:06p [facility] Pauline Arce K68.12 Psoas muscle Infectious Johnston, [employer] abscess Diseases M54.9 Dorsalgia, unspecified R78.81 Bacteremia Office Visit 04/04/2019 [facility] K[facility].12 Psoas muscle Assoc,pc Reed, PORFIRIO abscess Hospitalists J18.9 Pneumonia, unspecified organism J44.1 Chronic obstructive pulmonary disease w (acute) exacerbation J90 Pleural effusion, not elsewhere classified Office Visit 04/03/2019 2:04p [facility] Elijah Leos M54.9 Dorsalgia, Infectious Toshia Vazquez unspecified Diseases R78.81 Bacteremia B96.89 Oth bacterial agents as the cause of diseases classd elswhr Office [facility] J[facility].9 Pneumonia, 9:28a Assoc,kellie Mcbride, [place] unspecified Hospitalists organism R78.81 Bacteremia J44.1 Chronic obstructive pulmonary disease w (acute) exacerbation Office [facility] J18.9 Pneumonia, 9:28a Assoc,kellie Mcbride, [place] unspecified Hospitalists organism R78.81 Bacteremia J44.1 Chronic obstructive pulmonary disease w (acute) exacerbation Office Visit 04/01/2019 2:02p [facility] Elijah Leos R78.81 Bacteremia Infectious Diseases Toshia Vazquez B96.89 Oth bacterial agents as the cause of diseases classd elsr M54.6 Pain in thoracic spine M54.5 Low back pain R05 Cough J90 Pleural effusion, not elsewhere classified J44.9 Chronic obstructive pulmonary disease, unspecified K03.81 Cracked tooth Office 04/01/2019 [facility] M51.37 Other Visit 7:00a [facility] Cardoza MD intervertebral disc degeneration, lumbosacral region M54.5 Low back pain Office Visit 04/01/2019 [facility] J18.9 Pneumonia, 9:27a Assoc,PORFIRIO [place] unspecified Hospitalists organism R78.81 Bacteremia J44.1 Chronic obstructive pulmonary disease w (acute) exacerbation M54.2 Cervicalgia Office Visit 03/31/2019 [facility] A41.9 Sepsis, 9:27a Assoc,kellie Mcbride PA unspecified Hospitalists organism R65.21 Severe sepsis with septic shock J18.9 Pneumonia, unspecified organism J44.1 Chronic obstructive pulmonary disease w (acute) exacerbation R50.9 Fever, unspecified Office Visit 03/30/2019 [facility] Archana Smalls, A41.9 Sepsis, 9:26a Assockellie M.D. unspecified Hospitalists organism R65.21 Severe sepsis with septic shock R50.9 Fever, unspecified J44.1 Chronic obstructive pulmonary disease w (acute) exacerbation Office Visit 03/30/2019 9:33a Intensivists Mel Arriaga J44.1 Chronic obstructive MD pulmonary disease w (acute) exacerbation A41.9 Sepsis, unspecified organism D69.6 Thrombocytopenia, unspecified E83.51 Hypocalcemia Assessments Date Code Description Provider 07/31/2019 M46.26 Osteomyelitis of vertebra, lumbar Pauline Johnston NP region 07/31/2019 M46.47 Discitis, unspecified, lumbosacral Pauline Johnston NP region 07/31/2019 M47.26 Other spondylosis with radiculopathy, Pauline Johnston NP lumbar region 07/11/2019 M46.26 Osteomyelitis of vertebra, lumbar Geovany Cardoza MD region 07/11/2019 M47.26 Other spondylosis with radiculopathy, Geovany Cardoza MD lumbar region 06/04/2019 M46.26 Osteomyelitis of vertebra, lumbar Geovany Cardoza MD region 06/04/2019 M46.26 Osteomyelitis of vertebra, lumbar Pauline Johnston NP region 06/04/2019 M46.47 Discitis, unspecified, lumbosacral Vassilios MD Sony region 06/04/2019 M46.47 Discitis, unspecified, lumbosacral Pauline Johnston, MARISOL region 06/04/2019 K68.12 Psoas muscle abscess Pauline Johnston, [employer]ISHING [employer] 06/04/2019 Z79.2 [facility] (current) use of Pauline Johnston 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 05/21/2019 M46.26 Osteomyelitis of vertebra, lumbar Pauline Johnston NP region 05/21/2019 M46.47 Discitis, unspecified, lumbosacral Tania Mcbride, [place] region 05/21/2019 M46.46 Discitis, unspecified, lumbar region Pauline Johnston, [employer]ISHING [employer] 05/21/2019 J44.9 Chronic obstructive pulmonary Tania Mcbride, PA disease, unspecified 05/20/2019 M46.47 Discitis, unspecified, lumbosacral Tania Mcbride, [place] region 05/20/2019 J44.9 Chronic obstructive pulmonary Tania Mcbride, PA disease, unspecified 05/19/2019 M46.26 Osteomyelitis of vertebra, lumbar Rolando Vazquez M.D. region 05/19/2019 M46.47 Discitis, unspecified, lumbosacral Tania Mcbride, PA region 05/19/2019 M46.46 Discitis, unspecified, lumbar region Rolando Vazquez M.D. 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 05/18/2019 M46.47 Discitis, unspecified, lumbosacral Comfort Cooley, N.P. region 05/18/2019 J44.9 Chronic obstructive pulmonary Comfort Cooley, N.P. disease, unspecified 05/17/2019 M46.47 Discitis, unspecified, lumbosacral Comfort Cooley N.P. region 05/17/2019 J44.9 Chronic obstructive pulmonary Comfort Cooley, N.P. disease, unspecified 05/16/2019 M46.47 Discitis, unspecified, lumbosacral Comfort Cooley N.P. region 05/16/2019 J44.9 Chronic obstructive pulmonary Comfort Cooley, N.P. disease, unspecified 05/15/2019 M46.47 Discitis, unspecified, lumbosacral Juana Bernabe M.D. region 05/15/2019 J44.9 Chronic obstructive pulmonary Juana Bernabe M.D. disease, unspecified 05/14/2019 M46.47 Discitis, unspecified, lumbosacral Roger Bahena M.D. ,FACP region 05/14/2019 K68.12 Psoas muscle abscess Roger Bahena M.D.,FACP 05/14/2019 J44.9 Chronic obstructive pulmonary Roger Bahena M.D.,FACP disease, unspecified 05/08/2019 K68.12 Psoas muscle abscess Pauline Johnston, [employer]ING [employer] 05/08/2019 Z79.2 [facility] (current) use of Pauline Johnston, [employer]ING [employer] antibiotics 05/08/2019 M47.26 Other spondylosis with radiculopathy, Pauline Johnston, FINISHING [employer] lumbar region 05/05/2019 M51.27 Other intervertebral disc PORFIRIO Vasquez displacement, lumbosacral region 05/05/2019 M51.17 Intervertebral disc disorders with PORFIRIO Vasquez radiculopathy, lumbosacral region 05/05/2019 M47.896 Lumbar spondylosis PORFIRIO Vasquez 04/24/2019 K68.12 Psoas muscle abscess Pauline Johnston, [employer]ISHING [employer] 04/24/2019 R78.81 Bacteremia Pauline Johnston, FINISHING [employer] 04/24/2019 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 Johnston 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 04/24/2019 M47.896 Lumbar spondylosis Pauline Johnston, FINISHING [employer] 04/23/2019 M47.896 Lumbar spondylosis Rock Cruz PA 04/23/2019 M51.17 Intervertebral disc disorders with PORFIRIO Vasquez radiculopathy, lumbosacral region 04/08/2019 K68.12 Psoas muscle abscess Pauline Johnston, MARISOL 04/08/2019 K68.12 Psoas muscle abscess PORFIRIO Mckeon 04/08/2019 R78.81 Bacteremia Pauline Johnston, FINISHING [employer] 04/08/2019 A41.9 Sepsis, unspecified organism PORFIRIO Mckeon [...] 04/04/2019 K68.12 Psoas muscle abscess Pauline Johnston, FINISHING [employer] 04/04/2019 J44.1 Chronic obstructive pulmonary disease PORFIRIO Mckeon with (acute) exacerbation 04/04/2019 J90 Pleural effusion, not elsewhere PORFIRIO Mckeon classified 04/04/2019 M54.9 Dorsalgia, unspecified Pauline Johnston, FINISHING [employer] 04/04/2019 R78.81 Bacteremia Pauline Johnston, FINISHING [employer] 04/03/2019 J18.9 Pneumonia, unspecified organism PORFIRIO Mckeon [...] disease PORFIRIO Mckeon with (acute) exacerbation 04/01/2019 M51.37 Other intervertebral disc Geovany Cardoza MD degeneration, lumbosacral region 04/01/2019 J18.9 Pneumonia, unspecified organism PORFIRIO Mckeon 04/01/2019 M54.5 Low back pain Geovany Cardoza MD 04/01/2019 R78.81 Bacteremia Rolando Vazuqez M.D. 04/01/2019 R78.81 Bacteremia PORFIRIO Mckeon 04/01/2019 [...] with (acute) exacerbation Plan of Treatment Future Appointment(s):08/12/2019 7:30 am - Geovany Cardoza MD at [facility]08/20/2019 4:00 pm - Geovany Cardoza MD at [facility]07/31/2019 - Pauline Johnston, NPM46.26 Osteomyelitis of vertebra, lumbar regionFollow up:as [id number] Discitis, unspecified, lumbosacral dsjvllM17.26 Other spondylosis with radiculopathy, lumbar region Functional Status Description No Information Available Mental Status Description No Information Available Referrals Refer to Dr Reason for Referral Status Appt Date Madeleine Reyes MD Hip pain, decreased range of motion, Hx of Created discitis osteomyelitis [address] [phone]
--- OUTSIDE RECORDS SUMMARY | 2019-08-12 05:49 | XMS REPORT | Continuity of Care Document ---
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 [phone] Problems Description No Information Available Social History Type Date Description Comments Sex Unknown ETOH Use Denies alcohol use Tobacco Use Start: Unknown Heavy tobacco smoker smoked x 44 yrs (more than 10 cigarettes/day) Recreational Drug Use Never Used Drugs Smoking Status Reviewed: 07/11/19 Heavy tobacco smoker smoked x 44 yrs (more than 10 cigarettes/day) Exercise Type/Frequency Exercises regularly Allergies, Adverse Reactions, Alerts Active Allergies Reaction Severity Comments Date Penicillin G childhood reaction 04/23/2019 Relafen 05/08/2019 Diclofenac Diarrhea 06/04/2019 Medications Active Medications SIG Qnty Indications Ordering Date Provider Tlso Brace When out of bed M46.26 Geovany 07/11/2019 after surgery MD Sony Tlso Brace [...] three Unknown 300mg Capsules times a day Prednisone 1 by mouth twice Unknown 5mg Tablets daily Melatonin ER take one Unknown 3mg Tablets tablet/capsule by ER mouth at bedtime Florastor 1 by mouth three Unknown 250mg Capsules times a day Benzonatate take one or two Unknown 100mg capsules every 6 Capsules hours as needed for cough. Ipratropium 1 unit every 4 Unknown [place]/Albuterol hours as needed Sulfate 0.5-2.5(3)mg/3ML Solution Oxycodone HCL ER 1 by mouth every Unknown 30mg Tab 12 hours ER 12H Abuse-Det Oxycodone HCL 1 tabs by mouth Unknown 5mg every 6 hours as Capsules needed pain Cyclobenzaprine HCL take 1 tab by Unknown 10mg mouth every 8 hrs Tablets Immunizations Description No Information Available Vital Signs Date Vital Result Comment 07/11/2019 9:18am Height 64 inches 5'4" Weight 129.00 lb Heart Rate 94 /min BP Systolic 120 mmHg BP Diastolic 70 mmHg Pain Level 6 BMI (Body Mass Index) 22.1 kg/m2 06/04/2019 5:01pm Height 64 inches 5'4" Weight 137.00 lb Body Temperature 98.6 F Pain Level 9 Right side BMI (Body Mass Index) 23.5 kg/m2 Results Description No Information Available Procedures Date Code Description Status 04/02/2019 68045 ECHO Transthorasic Realtime 2D W Doppler & Color Flow Hosp Completed Medical Devices Description No Information Available Encounters Type Date Location Provider Dx Diagnosis Office Visit 06/04/2019 [facility] M46.26 Osteomyelitis of 4:00p Services Of Andreas Cardoza MD vertebra, lumbar region M46.47 Discitis, unspecified, lumbosacral region Office Visit 06/04/2019 [facility] Pauline Arce M46.26 Osteomyelitis of 1:30p For Infectious Vickie [employer] vertebra, lumbar Diseases region M46.47 Discitis, unspecified, lumbosacral region K68.12 Psoas muscle abscess Z79.2 jail (current) use of antibiotics Office Visit 05/21/2019 [facility] Pauline Arce M46.26 Osteomyelitis of 1:31p For Infectious Vickie [employer] vertebra, lumbar Diseases region M46.46 Discitis, unspecified, lumbar region Office Visit 05/21/2019 [facility] M46.47 Discitis, 9:05a kellie Camarena PA unspecified, Hospitalists lumbosacral region J44.9 Chronic obstructive pulmonary disease, unspecified Office Visit 05/20/2019 [facility] M46.47 Discitis, 9:05a Asskellie luu PA unspecified, Hospitalists lumbosacral region J44.9 Chronic obstructive pulmonary disease, unspecified Office Visit 05/19/2019 [facility] Rolando Leos M46.26 Osteomyelitis of 1:29p For Infectious Toshia Vazquez vertebra, lumbar Diseases region M46.46 Discitis, unspecified, lumbar region 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 unspecified, Hospitalists lumbosacral region J44.9 Chronic obstructive pulmonary disease, unspecified Office Visit 05/17/2019 9:00a [facility] Comfort Cooley, M46.47 Discitis, Assoc,pc N.P. unspecified, Hospitalists lumbosacral region J44.9 Chronic obstructive pulmonary disease, unspecified Office Visit 05/16/2019 9:00a [facility] Comfort Cooley, M46.47 Discitis, Assoc,pc N.P. unspecified, Hospitalists lumbosacral region J44.9 Chronic obstructive pulmonary disease, unspecified Office Visit 05/15/2019 [facility] Juana M46.47 Discitis, 8:59a kellie Camarena M.D. unspecified, Hospitalists lumbosacral region J44.9 Chronic obstructive pulmonary disease, unspecified Office Visit 05/14/2019 [facility] Roger Leos M46.47 Discitis, 8:57a Assockellie M.D.,FACP unspecified, Hospitalists lumbosacral region K68.12 Psoas muscle abscess J44.9 Chronic obstructive pulmonary disease, unspecified Office Visit 05/08/2019 10:30a [facility] Pauline Acre K68.12 Psoas muscle Infectious Johnston, [employer] abscess Diseases Z79.2 jail (current) use of antibiotics M47.26 Other spondylosis with radiculopathy, lumbar region Office Visit 05/05/2019 [facility] M51.27 Other 2:00p Services Of PORFIRIO Marques intervertebral disc displacement, lumbosacral region M51.17 Intvrt disc disorders w radiculopathy, lumbosacral region M47.896 Other spondylosis, lumbar region Office Visit 04/24/2019 9:30a [facility] Pauline Arce K68.12 Psoas muscle Infectious Johnston, [employer] abscess Diseases R78.81 Bacteremia 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 M47.896 Other spondylosis, lumbar region Office Visit 04/23/2019 [facility] M47.896 Other spondylosis, 1:30p Services Of [facility] PORFIRIO Cruz lumbar region M51.17 Intvrt disc disorders w radiculopathy, lumbosacral region Office Visit 04/08/2019 10:26a [facility] Pauline Padron68.12 Psoas muscle Infectious Johnston, [employer] abscess Diseases R78.81 Bacteremia B96.89 Oth bacterial agents as the cause of diseases classd elswhr Office Visit 04/08/2019 9:31a [facility] Tania K68.12 Psoas muscle Assoc,PORFIRIO Oakley abscess Hospitalists A41.9 Sepsis, unspecified organism R65.21 Severe sepsis with septic shock J96.01 Acute respiratory failure with hypoxia B96.89 Oth bacterial agents as the cause of diseases classd elswhr Office Visit 04/07/2019 9:30a [facility] Nereida Bonilla68.12 Psoas muscle Assoc,kellie Pope abscess Hospitalists R78.81 Bacteremia J44.0 Chr obstructive pulmon disease with (acute) lower resp infct J90 Pleural effusion, not elsewhere classified Office Visit 04/07/2019 10:25a [facility] Pauline Padron68.12 Psoas muscle Infectious Johnston, [employer] abscess Diseases R78.81 Bacteremia B96.89 Oth bacterial agents as the cause of diseases classd elswhr M54.9 Dorsalgia, unspecified Office Visit 04/06/2019 9:30a [facility] Archana Smalls, K68.12 Psoas muscle Assoc,pc M.D. abscess Hospitalists J90 Pleural effusion, not elsewhere classified M54.9 Dorsalgia, unspecified Office Visit 04/05/2019 9:29a [facility] Archana Smalls K68.12 Psoas muscle Assoc,pc M.D. abscess Hospitalists J18.9 Pneumonia, unspecified organism J44.1 Chronic obstructive pulmonary disease w (acute) exacerbation J90 Pleural effusion, not elsewhere classified Office Visit 04/04/2019 2:06p [facility] Pauline Arce K68.12 Psoas muscle Infectious Johnston, [employer] abscess Diseases M54.9 Dorsalgia, unspecified R78.81 Bacteremia Office Visit 04/04/2019 9:29a [facility] K68.12 Psoas muscle Assoc,PORFIRIO Oakley abscess Hospitalists J18.9 Pneumonia, unspecified organism J44.1 Chronic obstructive pulmonary disease w (acute) exacerbation J90 Pleural effusion, not elsewhere classified Office Visit 04/03/2019 2:04p [facility] Elijah Leos M54.9 Dorsalgia, Infectious Toshia Vazquez unspecified Diseases R78.81 Bacteremia B96.89 Oth bacterial agents as the cause of diseases classd elswhr [facility] Pneumonia, 9:28a Assockellie PA unspecified Hospitalists organism R78.81 Bacteremia J44.1 Chronic obstructive pulmonary disease w (acute) exacerbation [facility] J[facility].9 Pneumonia, 9:28a Assoc,PORFIRIO Oakley unspecified Hospitalists organism R78.81 Bacteremia J44.1 Chronic obstructive pulmonary disease w (acute) exacerbation Office Visit 04/01/2019 2:02p [facility] Elijah Leos R78.81 Bacteremia Infectious [...] M54.5 Low back pain Office Visit 04/01/2019 [facility] J18.9 Pneumonia, 9:27a Assoc,PORFIRIO Oakley unspecified Hospitalists organism R78.81 Bacteremia J44.1 Chronic obstructive pulmonary disease w (acute) exacerbation M54.2 Cervicalgia Office Visit 03/31/2019 [facility] A41.9 Sepsis, 9:27a Assoc,PORFIRIO Oakley unspecified Hospitalists organism R65.21 Severe sepsis with septic shock J18.9 Pneumonia, unspecified organism J44.1 Chronic obstructive pulmonary disease w (acute) exacerbation R50.9 Fever, unspecified Office Visit 03/30/2019 [facility] Archana Smalls, A41.9 Sepsis, 9:26a Assoc,kellie M.DSummer unspecified Hospitalists organism R65.21 Severe sepsis with septic shock R50.9 Fever, unspecified J44.1 Chronic obstructive pulmonary disease w (acute) exacerbation Office Visit 03/30/2019 9:33a Intensivists Mel Arriaga, J44.1 Chronic obstructive MD pulmonary disease w (acute) exacerbation A41.9 Sepsis, unspecified organism D69.6 Thrombocytopenia, unspecified E83.51 Hypocalcemia Assessments Date Code Description Provider 07/11/2019 M46.26 Osteomyelitis of vertebra, lumbar Geovany Cardoza MD region 07/11/2019 M47.26 Other spondylosis with radiculopathy, Geovany Cardoza MD lumbar region 06/04/2019 M46.26 Osteomyelitis of vertebra, lumbar Geovany Cardoza MD region 06/04/2019 M46.26 Osteomyelitis of vertebra, lumbar Pauline Johnston NP region 06/04/2019 M46.47 Discitis, unspecified, lumbosacral Geovany Cardoza MD region 06/04/2019 M46.47 Discitis, unspecified, lumbosacral Pauline Johnston, [employer] region 06/04/2019 K68.12 Psoas muscle abscess Paulinemel Johnston, [employer] 06/04/2019 Z79.2 jail (current) use of Paulinemel Johnston, [employer] antibiotics 05/21/2019 M46.26 Osteomyelitis of vertebra, lumbar Paulinemel Johnston , [employer] region 05/21/2019 M46.47 Discitis, unspecified, lumbosacral Tania Mcbride, PA region 05/21/2019 M46.46 Discitis, unspecified, lumbar region Pauline Watkinsuriel Johnston, [employer] 05/21/2019 J44.9 Chronic obstructive pulmonary Tania Mcbride, [...] unspecified 05/17/2019 M46.47 Discitis, unspecified, lumbosacral Comfort Cooley, N.P. region 05/17/2019 J44.9 Chronic obstructive pulmonary Comfort Cooley, N.P. disease, unspecified 05/16/2019 M46.47 Discitis, unspecified, lumbosacral Comfort Cooley, N.P. region 05/16/2019 J44.9 Chronic obstructive pulmonary Comfort Cooley, N.P. disease, unspecified 05/15/2019 M46.47 Discitis, unspecified, lumbosacral Juana Bernabe M.D. region 05/15/2019 J44.9 Chronic obstructive pulmonary Juana Bernabe M.D. disease, unspecified 05/14/2019 M46.47 Discitis, unspecified, lumbosacral Roger Bahena M.D. ,[facility] region 05/14/2019 K68.12 Psoas muscle abscess [facility].,[facility] 05/14/2019 J44.9 Chronic obstructive pulmonary Roger Bahena M.D.,[facility] disease, unspecified 05/08/2019 K68.12 Psoas muscle abscess Pauline Johnston, [place] 05/08/2019 Z79.2 jail (current) use of Pauline Johnston 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 05/08/2019 M47.26 Other spondylosis with radiculopathy, Pauline Johnston NP lumbar region 05/05/2019 M51.27 Other intervertebral disc PORFIRIO Vasquez displacement, lumbosacral region 05/05/2019 M51.17 Intervertebral disc disorders with PORFIRIO Vasquez radiculopathy, lumbosacral region 05/05/2019 M47.896 Lumbar spondylosis PORFIRIO Vasquez 04/24/2019 K68.12 Psoas muscle abscess Pauline Johnston, [place] 04/24/2019 R78.81 Bacteremia Pauline Johnston, [place] 04/24/2019 Z79.2 jail (current) use of Pauline Johnston 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 04/24/2019 M47.896 Lumbar spondylosis Pauline Johnston, [employer] 04/23/2019 M47.896 Lumbar spondylosis PORFIRIO Vasquez 04/23/2019 M51.17 Intervertebral disc disorders with PORFIRIO Vasquez radiculopathy, lumbosacral region 04/08/2019 K68.12 Psoas muscle abscess Pauline Johnston NP 04/08/2019 K68.12 Psoas muscle abscess PORFIRIO Mckeon 04/08/2019 R78.81 Bacteremia Pauline Johnston, [employer] 04/08/2019 A41.9 Sepsis, unspecified organism PORFIRIO Mckeon [...] infection 04/07/2019 M54.9 Dorsalgia, unspecified Pauline Johnston, [employer] 04/07/2019 J90 Pleural effusion, not elsewhere Archana Samlls M.D. classified 04/06/2019 K68.12 Psoas muscle abscess [...] PORFIRIO Mckeon 04/04/2019 K68.12 Psoas muscle abscess Paulinemel Johnston, [employer] 04/04/2019 J44.1 Chronic obstructive pulmonary disease PORFIRIO Mckeon with (acute) exacerbation 04/04/2019 J90 Pleural effusion, not elsewhere PORFIRIO Mckeon classified 04/04/2019 M54.9 Dorsalgia, unspecified Pauline Johnston, [employer] 04/04/2019 R78.81 Bacteremia Pauline Johnston, [employer] 04/03/2019 J18.9 Pneumonia, unspecified organism PORFIRIO Mckeon [...] Geovany Cardoza MD 04/01/2019 R78.81 Bacteremia Rolando Vazquez M.D. 04/01/2019 [...] M.D. with (acute) exacerbation Plan of Treatment 07/11/2019 - Geovany Cardoza, MDM46.26 Osteomyelitis of vertebra, lumbar regionNew Medication:Tlso Brace - When out of bed after surgeryNew Xrays:MRI Lumbar Spine W/Wo, Ordered: 07/11/19P Lumbar Ap//Lat 2-3 Views, Ordered: pine Entire Ap/Lat, Ordered: 07/11/19Referral:Madeleine Reyes MD, Surgery, Ortho Adult ReconFollow up:RV one week, one month, three months postop.M47.26 Other spondylosis with radiculopathy, lumbar region Functional Status Description No Information Available Mental Status Description No Information Available Referrals Refer to Dr Reason for Referral Status Appt Date Madeleine Reyes MD Hip pain, decreased range of motion, Hx of Created discitis osteomyelitis [address] [place] [address] [phone]
[2019-08-12] MEDS ORDERED: Lactated Ringers 1000 ML Bag* 1,000 ML IV SCH ×2 (06:00→17:00)
[2019-08-12] MEDS ORDERED: Acetaminophen TAB* 325 MG PO ONE (06:00)
[2019-08-12] MEDS ORDERED: Buffered Lidocaine 1% SYRIN* 1 ML/SYRINGE INTRADERM ONE (06:02)
[2019-08-12] MEDS ORDERED: Acetaminophen TAB* 325 MG ONE (06:02)
[2019-08-12] MEDS ORDERED: Bupivacaine 0.5% W/EPI SDV* 30 ML VIAL ONE (06:42)
[2019-08-12] MEDS ORDERED: Bacitracin INJECTION* 50,000 UNITS ONE ×3 (06:42→13:58)
[2019-08-12] MEDS ORDERED: Propofol* 500 MG/50 ML BTL ONE ×2 (07:11→10:02)
[2019-08-12] MEDS ORDERED: Artificial Tear OPHTH.OINT* 3.5 GM ONE (07:11)
[2019-08-12] MEDS ORDERED: Propofol* 10 MG/ML 20 ML BTL ONE (07:14)
[2019-08-12] MEDS ORDERED: Remifentanil* 2 MG VIAL ONE (07:15)
[2019-08-12] MEDS ORDERED: Lidocaine 2% PF * 5 ML VIAL ONE (07:15)
[2019-08-12] MEDS ORDERED: KETAMINE HCL* 50 MG/ML 10 ML VIAL ONE (07:19)
[2019-08-12] MEDS ORDERED: Succinylcholine* 20 MG/ML 10 ML VIAL ONE (07:20)
[2019-08-12] MEDS ORDERED: HYDROmorphone INJ1* 1 MG/ML SYRINGE ONE ×3 (07:20→16:32)
[2019-08-12] MEDS ORDERED: Midazolam* 1 MG/ML 2 ML VIAL (2 MG) ONE (07:21)
[2019-08-12] MEDS ORDERED: Rocuronium* 10 MG/ML VIAL ONE (08:24)
[2019-08-12] MEDS ORDERED: Phenylephrine 10 MG/ML VIAL* 1 ML VIAL ONE (09:11)
[2019-08-12] MEDS ORDERED: Dexamethasone IV* 4 MG/ML 1 ML (4 MG) ONE (09:26)
[2019-08-12] MEDS ORDERED: EPHEDrine (Pressors)* 50 MG/ML VIAL ONE ×2 (10:02→15:13)
[2019-08-12] MEDS ORDERED: Phenylephrine 40 MCG/ML SYRINGE ONE ×2 (10:03→14:56)
[2019-08-12] MEDS ORDERED: Propofol* 1,000 MG/100 ML BTL ONE (12:22)
[2019-08-12] MEDS ORDERED: PROCHLORPERAZINE INJ 5 MG/ML 2 ML VIAL IV PRN (14:05)
[2019-08-12] MEDS ORDERED: Naloxone* 0.4 MG/ML 1 ML VIAL IV PRN (14:05)
[2019-08-12] MEDS ORDERED: oxyCODONE TAB* 5 MG TAB PO PRN ×5 (14:05→18:07)
[2019-08-12] MEDS ORDERED: diPHENhydraMINE IV* 50 MG/ML 1 ml VIAL (BENADRYL) IV PRN (14:05)
[2019-08-12] MEDS ORDERED: fentaNYL* 50 MCG/ML 2 ML VIAL (100 MCG VIAL) IV PRN (14:05)
[2019-08-12] MEDS ORDERED: Gabapentin CAP(*) 300 MG PO ONE (14:06)
[2019-08-12] MEDS ORDERED: Acetaminophen IV 1GM/100ML * 100 ML ONE (14:57)
[2019-08-12] MEDS ORDERED: Ondansetron INJ* 2 MG/ML VIAL ONE (15:08)
[2019-08-12] MEDS ORDERED: Levalbuterol HFA INHALER* 1 PUFF MDI ONE (15:15)
[2019-08-12] MEDS: HYDROmorphone INJ1* 1 MG/ML SYRINGE IV PRN ×4 (16:33→17:10)
[2019-08-12] MEDS ORDERED: Acetaminophen TAB* 325 MG PO PRN (16:48)
[2019-08-12] MEDS ORDERED: Magnesium Hydroxide LIQ* 30 ML UDC PO PRN (16:48)
[2019-08-12] MEDS ORDERED: Ondansetron INJ* 2 MG/ML VIAL IV PRN (16:48)
--- NOTE | 2019-08-12 17:37 | CONSULT ---
Consult Consult: August 12, 2019 INPATIENT PAIN CONSULTATION Teresa Alvarez is a 54 year old female. She has had back pain for years but in early March, her pain became severe. Her brought her to [facility] on March 28 and they gave her pain medications. The following day, she developed fevers and increasing back pain. She went back to the ER and was noted to have a fever of 105 degrees. She was transferred to [facility] in septic shock. She had IV antibiotics for a month and she had an MRI showing a disc at L4/5 and was diagnosed with a left psoas abcess. She went home 05/09. She followed up as an outpatient and had an elevated CRP. She had imaging, a CT of her spine, that showed endplate destruction and diskitis and osteomyelitis and was re-admitted to the hospital 05/15. She was put back on IV antibiotics. She went home the day after [place]. She had significant trouble with pain and weakness. She had to use a walker to ambulate, then used [place] crutches. She saw her primary care provider, PORFIRIO Mora, for pain medications after the antibiotics. Most recently, she was on oxycodone, 5 mg three times a day and gabapenntin 300 mg TID. 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 She has been following with Dr. Beal. After her spine infection, she had complete destruction of L4/5 and a lot of pain as well as kyphosis. She decided to have surgery. She was admitted today and had a a L3-S1 posterolateral fusion and a right L4/5 and L5/S1 TLIF with posterior instrumentation to the pelvis. I am asked to see her for pain management PAST MEDICAL HISTORY: COPD, CAD, depression Allergies Allergy/AdvReac Type Severity Reaction Status Date / Time diclofenac Allergy excessive Verified 08/12/19 06:13 diarrhea nabumetone [From Relafen] Allergy Fatigue Verified 08/12/19 06:13 Penicillins Allergy Unknown Verified 08/12/19 06:13 Reaction Details strawberry Allergy Hives Verified 08/12/19 06:13 Current Medications Acetaminophen (Tylenol Tab*) 975 mg PO ONCE ONE Stop: 08/12/19 06:01 Last Admin: 08/12/19 06:11 Dose: 975 mg Acetaminophen (Tylenol Tab*) 650 mg PO Q4H PRN PRN Reason: MILD PAIN or TEMP > 100.4 Cyclobenzaprine HCl (Flexeril Tab*) 10 mg PO TID PRN PRN Reason: SPASMS - MUSCLE Diphenhydramine HCl (Benadryl Iv*) 25 mg IV ONCE PRN PRN Reason: ITCHING Fentanyl Citrate (Fentanyl*) 25 mcg IV Q5M PRN PRN Reason: PAIN - MODERATE Gabapentin (Neurontin Cap(*)) 300 mg PO ONCE ONE Stop: 08/12/19 14:07 Hydromorphone HCl (Dilaudid Inj1s*) 0.2 mg IV Q10M PRN PRN Reason: PAIN - SEVERE Last Admin: 08/12/19 17:10 Dose: 0.2 mg Lactated Ringer's (Lactated Ringers 1000 Ml Bag*) 1,000 mls @ 125 mls/hr IV PER RATE [facility] Last Admin: 08/12/19 06:27 Dose: 125 mls/hr Vancomycin HCl 1,000 mg/ (Sodium Chloride) 250 mls @ 166.667 mls/hr IVPB ONCE Stop: 08/12/19 23:59 Lactated Ringer's (Lactated Ringers 1000 Ml Bag*) 1,000 mls @ 50 mls/hr IV .per rate [facility] Lidocaine/Sodium Bicarbonate (Buffered Lidocaine 1% Syrin*) 0.2 ml INTRADERM ONCE ONE Stop: 08/11/19 11:28 Last Admin: 08/12/19 06:27 Dose: 0.2 ml Magnesium Hydroxide (Milk Of Magnesia Liq*) 30 ml PO DAILY PRN PRN Reason: CONSTIPATION Morphine Sulfate (Morphine Inj (Syringe)*) 2 mg IV Q2H PRN PRN Reason: PAIN - SEVERE Naloxone HCl (Narcan*) 0.08 mg IV Q2M PRN PRN Reason: severe induced resp depression Ondansetron HCl (Zofran Inj*) 4 mg IV Q6H PRN PRN Reason: NAUSEA/VOMITING Oxycodone HCl (Roxycodone Tab*) 10 mg PO ONCE PRN PRN Reason: SEVERE PAIN Oxycodone HCl (Roxycodone Tab*) 5 mg PO Q4H PRN PRN Reason: moderate pain Oxycodone HCl (Roxycodone Tab*) 10 mg PO Q4H PRN PRN Reason: PAIN - SEVERE Prochlorperazine Edisylate (Compazine Inj*) 5 mg IV ONCE PRN PRN Reason: NAUSEA/VOMITING SOCIAL HISTORY: 1 ppd smoker, rare drinker, no marijuana. Lives with in trailer in [place]. 4 steps to enter. Out of work since March. Vital Signs Temp Pulse Resp BP Pulse Ox 97.7 F 93 16 95/58 95 08/12/19 06:12 08/12/19 17:00 08/12/19 17:10 08/12/19 17:00 08/12/19 17:00 EXAM: GENERAL: Alert. A little sedated from medications LUNGS: Clear HEART: Regular ABDOMEN: Soft EXTREMITIES: Normal tone NEUROLOGIC: Alert and oriented. Sensation intact. Moves all 4 extremities ASSESSMENT: 1. L3-S1 posterolateral fusion with right TLIF at L4/5 and L5/S1 2. History of diskitis and osteomyelitis of spine PLAN: She was taking oxycodone before surgery and had a major surgery so her post op needs may be a little more. I will increase her PRN Oxycodone to 5-15 mg Q 4 PRN. She may need Oxycontin as well, but will see. She may need Nicotine replacement. I will order her gabapentin and bowel medications
[2019-08-12] MEDS ORDERED: Senna TAB 8.6 mg* TAB PO PRN (18:08)
[2019-08-12] MEDS ORDERED: Albuterol 2.5 MG/3 ML NEB.SOL* (0.083%) INH PRN (18:28)
--- NOTE | 2019-08-12 19:22 | PN ---
Progress Note - Progress Note Date of Service: 08/12/19 SOAP: Subjective: []Patient tolerated procedure well. Ambulated to bed. Tolerates Po well. Pain is well controlled. Objective: [] VSS WOund s,c,d Eric drains in place. AAOx3 MADYSON, CN II -XII grossly intact. Motor 5/5 all extremities Sensory grossly intact to light touch. Assessment: [] 54 yof POD#0 L3-S1 PL arthrodesis, Rt L 4-5, L5-S1 TLIF, L3 -Pelvis instrumentation with pedicle, S2AI screws. Plan: []Monitor VS, Neurochecks. Encourage ambulation. PT in am. IS. DC planning. Nutrition consult. L-Spine XR in am. Appreciate Dr Smalls's, Dr Mireles's care. Raffy Cardoza MD
[2019-08-12] MEDS: Mometasone 220 MCG MDI INH SCH (19:32)
[2019-08-12] MEDS: busPIRone TAB* 10 MG PO SCH (20:03)
[2019-08-12] MEDS: Gabapentin CAP(*) 300 MG PO SCH (20:03)
[2019-08-12] MEDS: Docusate CAP* 100 MG PO SCH (20:05)
[2019-08-12] MEDS: Escitalopram * 10 MG TAB PO SCH (20:05)
[2019-08-12] MEDS: oxyCODONE TAB* 5 MG TAB PO PRN (20:06)
[2019-08-12] MEDS ORDERED: Gabapentin CAP(*) 300 MG PO SCH (21:00)
--- NOTE | 2019-08-12 23:47 | CONS ---
CC: PORFIRIO Mora; Dr. Aury Georges; Dr. Cardoza; Dr. Mireles * CONSULTATION NOTE: DATE OF CONSULT: 08/12/19 PRIMARY CARE PROVIDER: PORFIRIO Mora, working with Dr. Aury Georges at [facility]. REQUESTING PHYSICIAN: Dr. Cardoza. REASON FOR CONSULTATION: Co-management of medical condition and taking over the patient's care postoperatively. CHIEF COMPLAINT: Lower back pain. HISTORY OF PRESENT ILLNESS: Teresa Alvarez is a 54-year-old female who has had prolonged hospitalizations at the end of 2018. Initially, she was admitted in March of 2019 for psoas muscle abscess. At that point, she had the abscess drained. She had severe sepsis requiring pressors and prolonged ICU stay and later on prolonged antibiotic treatment with IV ertapenem. 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 Once again, she was treated with prolonged course of antibiotics, which include daptomycin, ceftriaxone, and p.o. metronidazole. In May of 2019, she was discharged to [facility] for swing bed status. After her antibiotics were finished, she was seen by Dr. Cardoza, who noted that the patient had an distraction of L4 and L5 vertebral body. The patient was noted to have worsening of lower back pain, worsening kyphosis, and ambulatory dysfunction. She had trouble with ambulating with crutches. At this point, today, Dr. Cardoza performed an L3 through S1 posterolateral fusion and a right L4-L5 and L5-S1 TLIF with posterior instrumentation of the pelvis. The patient is seen postoperatively. She still is slightly sedated on pain medications. Multiple family members are present in the room. PAST MEDICAL HISTORY: 1. COPD, not oxygen dependent. 2. History of coronary artery disease. 3. Dyslipidemia. 4. Tobacco abuse at 1 pack per day. 5. Anxiety/depression. 6. Osteoarthritis. 7. Lung nodule. 8. Hyperlipidemia. 9. Status post right carpal tunnel release. MEDICATIONS: Medications at home include: 1. Oxycodone 5 mg 3 times a day p.r.n. 2. BuSpar 10 mg b.i.d. 3. Gabapentin 300 mg 3 times a day. 4. Flovent Diskus 250 mcg 2 puffs b.i.d. 5. Lexapro 10 mg at bedtime. 6. Flexeril 5 mg 3 times a day. 7. Albuterol inhaler on a p.r.n. basis. 8. Albuterol nebulizer on a p.r.n. basis. ALLERGIES: Include DICLOFENAC, NABUMETONE, PENICILLIN, and STRAWBERRY. FAMILY HISTORY: Positive for mother who of ovarian cancer. Father with emphysema. Maternal grandmother also had ovarian cancer. One of her siblings, her sister passed from leukemia. SOCIAL HISTORY: The patient smokes at least a pack of cigarettes a day and had been doing so since she was 12 years old. She denies any alcohol or drug use. 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 As her surrogate, she names her daughter, Serena Massey, and her , Tez Alvarez. REVIEW OF SYSTEMS: Positive for lower back pain. Otherwise, the patient is not a great historian due to her being post-anesthesia. All 12 systems were reviewed with the patient and were otherwise negative. PHYSICAL EXAM: Blood pressure of 104/48, heart rate of 94 and regular, respiratory rate 16, oxygen saturation 95% on 2 L of oxygen via nasal cannula, temperature of 98.2. General: The patient is a very pleasant 54-year-old female, who is in no acute distress. The patient is slightly lethargic, but is alert and oriented x3. HEENT: Head atraumatic, normocephalic. Eyes: Pupils are equal and reactive to light and accommodation. Oropharynx is clear. Mucosa moist. Neck: Supple. No JVD. No bruit bilaterally. Cardiovascular: Regular rate and rhythm. No murmur. Respiratory: Clear to auscultation bilaterally. Abdomen: Soft and nontender. Bowel sounds are present in all 4 quadrants. Extremities: There is no edema. Pulses +2 bilaterally. There is no clubbing, no cyanosis. On evaluation of the patient's back, the patient's postoperative dressings that are covering the incision were removed. The patient has 2 PO drains, both of them draining serosanguineous fluid. On neuro evaluation, cranial nerves II through XII grossly intact. Motor strength is 5/ 5 bilaterally in bilateral upper extremities. Bilateral lower extremities, it appears that the right leg is slightly weaker than the left. The patient is afraid to move her bilateral lower extremities due to her recent surgery. Her Babinski's are negative. Her muscle tone is good, and equal bilaterally. She is able to move her legs against gravity for a couple of seconds. She refuses to pick them above bed for longer duration. DIAGNOSTIC STUDIES/LAB DATA: Laboratory data obtained today include only the patient's ABG obtained postoperatively with pH of 7.28, pCO2 of 46, pO2 of 135, bicarb of 20.6. ASSESSMENT AND PLAN: 1. In regard of the patient's postoperative management period, I discussed this briefly with Dr. Cardoza. The neurosurgeon is going to decide if the patient should be put on pharmacologic DVT prophylaxis postoperatively tomorrow. For the time being, we will continue sequential compression devices. Ambulation as per Neurosurgery. 2. For postoperative pain management, Dr. Mireles was already consulted and recommended for the patient to be on oxycodone and continue Flexeril. 3. The patient has chronic obstructive pulmonary disease with severe obstructive patterns as per the note that we got from the patient's primary provider. At this point, she is going to be encouraged with incentive spirometry and oxygen supplementation. Her nebulizers are going to be continued on as needed basis as well as we will continue her inhalers. 4. Tobacco use disorder. She stated that her nicotine supplements make her "sick." At this point, the patient decided that she is not going to use any supplementation as she is going to stop "cold turkey." 5. The patient's code status is full. Her surrogate is her and her daughter. 6. For DVT prophylaxis, SCDs are going to be implemented until Surgery is okay with pharmacologic prophylaxis. Thank you very much for allowing our service to see your patient in consultation. We will take over as a primary service from now on. We will see the patient on a daily basis and discuss it with you. TIME SPENT: Approximately 65 minutes was spent on consultation of this patient. [id number]/[facility] #: [id number] ANTHONY
[2019-08-13] MEDS: Albuterol HFA INHALER* 8 gm MDI INH PRN ×2 (00:55→06:39)
[2019-08-13] MEDS: oxyCODONE TAB* 5 MG TAB PO PRN ×3 (01:03→14:36)
--- NOTE | 2019-08-13 03:08 | OP ---
DATE OF OPERATION: 08/12/19 - ROOM #334 DATE OF : 61 SURGEON: Dr. Geovany Cardoza. ANALYSIS ENGINEER: RENETTA Kerns ANESTHESIA: General. PRE-OP DIAGNOSES: L5-S1 post diskitis kyphosis with endplate destruction, degenerative disease, loss of lumbar lordosis and lumbar kyphosis. POST-OP DIAGNOSES: L5-S1 post diskitis kyphosis with endplate destruction, degenerative disease, loss of lumbar lordosis and lumbar kyphosis. OPERATIVE PROCEDURE: The patient underwent a posterior L3 to S1 posterolateral fusion with right L4-5 and L5-S1 TLIF with PEEK interbody cages, DBX and local bone graft. L3 to S1 and pelvis instrumentation with bilateral L3, L4, L5 and S1 pedicle screws with bilateral S2AI screws with posterior partial osteotomies at L4-5 and L5-S1 and partial Sidra osteotomies at L4-5 and L5-S1 and L3-4 facet decortication with intraoperative navigation, intraoperative electrophysiological monitoring and microscope. SUMMARY: The patient is a very pleasant 54-year-old female with history of L5- S1 diskitis, osteomyelitis with destruction of L4-5 disk space and L5 superior endplate with L4-5 kyphosis with degenerative disease at L5-S1 and loss of lumbar lordosis, who had difficulty with intractable back pain and was not able to ambulate without crutches. After failing conservative modalities, she was offered the option of surgical intervention. After explaining indications to the patient, expectations and possible complications to the patient and her family including her , daughter and son with complications included but not limited to bleeding, infection, risk of injury to adjacent structures, paralysis, , need for additional procedure, anesthesia risks, stroke, blindness, cancer, instability, hardware failure, adjacent level disease, pseudoarthrosis, spinal fluid leak, need for additional procedures, proximal disk infection, kyphosis, injury to the trachea and esophagus, need for prolonged ICU stay, prolonged hospitalization, prolonged rehabilitation, loss of bladder or bowel control, deep venous thrombosis, pulmonary embolism, inability to be weaned from the ventilator, need for tracheostomy or gastrostomy. The patient was agreeable to proceed with surgery and informed consent was obtained. The patient understood that her condition may not improve , in fact may get worse after surgery and she may need to have additional procedure in the future. She also understood that operative plan may be modified according to the intraoperative findings and conditions and that her condition may not improve, in fact may get worse after surgery. She also understood that case may be abandoned or done in more than one stages and that she may require prolonged ICU stay, prolonged hospitalization and prolonged rehabilitation. ESTIMATED BLOOD LOSS: 100 cc. COMPLICATIONS: None. DESCRIPTION OF PROCEDURE: The patient was brought to the operating room and was placed under general anesthesia by the anesthesia team. She was carefully positioned prone on the traction table and all bony prominences were meticulously padded. The skin was prepped and draped in a standard fashion. After appropriate surgical pause, patient identification, a midline incision over the spinous process of approximately L2 to S2 was marked on the skin and the skin was infiltrated with local anesthetic. The skin was incised with #10 surgical blade and the incision was carried down through the subcutaneous tissue with Bovie cautery. The dorsal fascia was divided in both sides of midline with the use of Bovie cautery and the paraspinal musculature was elevated in a subperiosteal fashion with use of periosteal elevator and Bovie cautery. The subperiosteal dissection was carried out exposing the lamina, the facet and the transverse processes all the way from L3, L4, L5 and sacral ala as well as the posterior S1 foramen and posterior S2 foramen. Self-retaining retractors were introduced further into the field and navigation start was secured over the spinous process of approximately S2. Intraoperative O-arm imaging was obtained and the patient's data was transferred to the navigation platform. With the use of intraoperative navigation, trajectories of pedicle screws were determined and after making the commercial helicopter pilot holes with high-speed drill and cannulated the pedicles with awl-tip tap, pedicle screws were introduced into the L5, L4, L3 and S1 pedicles bilaterally. Then, attention was brought to insert the S2AI screws with the assistance of intraoperative navigation. After completion of placement of the instrumentation, attention was brought to perform a right L4-5 and L5-S1 TLIF with assistance of intraoperative microscope. The medial facet as well as parts of pars and significant portion of the lamina of L4 was then removed with use of high-speed drill and Kerrison punches. The bone was saved for the arthrodesis part of the procedure. Then, the ligamentum flavum was gently removed with Kerrison punches and the pedicle of L5 was skeletonized in the medial and superior aspects. As expected from the preoperative imaging, the disk height was completely collapsed and in order to gain access, we performed small posterior osteotomy with high-speed drill. A small osteotome was then entered in order to dilate the disk space and after a series of dilators, PEEK Elevate cage was inserted after being filled with local bone graft and DBX as well as after the disk space was filled with mixture of bone graft. The endplate rotation was also assisted with curette. The procedure was then repeated for right L5-S1 TLIF. After the completion of the TLIF placement, intraoperative O-arm imaging confirmed excellent placement of all hardware and excellent synagogue of the patient's lumbar lordosis. Two titanium rods were then cut and fashioned in order to increase the patient' s lumbar lordosis and partial Sidra osteotomies were performed at the L5-S1 and left L4-5 while decortication of both facets at L3-4 was performed. Then, attention was brought to and final tightening of the titanium rods. The wound was then copiously irrigated with pulse lavage and after confirmation of meticulous hemostasis and meticulous inspection, the bony surfaces over the transverse process was exposed. Bony surfaces were then carefully decorticated with high-speed drill. A mixture of locally harvested bone graft and DBX putty was used for posterolateral fusion between L3 to S1 and pelvis. After confirmation of meticulous hemostasis and copious irrigation and meticulous inspection, the self-retaining retractors were removed from the field as well as the navigation star and the wound was closed by layers over 2 Eric drains, which were tunneled through separate stab wound incisions. The posterior fascia was approximated with 0 interrupted Vicryl sutures while the subcutaneous tissues were approximated with inverted, interrupted 0 and 2-0 Vicryl sutures. The skin was then approximated with interrupted running #1 Prolene sutures. At the end of the procedure, all counts were reported to be correct. The patient remained hemodynamically stable throughout the case. Intraoperative electrophysiological monitoring remained stable throughout the case. The patient was then turned supine, was extubated and was transferred to the Recovery in excellent condition. [id number]/[facility] #: [id number] GR[facility] SQUARE HOSPITALRick
[2019-08-13] MEDS: Morphine INJ* 2 MG/ML 1 ML SYRINGE (TWO MG - NEW SYRINGE VERSION) IV PRN ×3 (04:34→12:11)
[2019-08-13] MEDS: Mometasone 220 MCG MDI INH SCH ×3 (08:21→21:25)
[2019-08-13] MEDS: Gabapentin CAP(*) 300 MG PO SCH ×4 (09:26→21:44)
[2019-08-13] MEDS: Docusate CAP* 100 MG PO SCH ×2 (09:26→21:43)
[2019-08-13] MEDS: busPIRone TAB* 10 MG PO SCH ×2 (09:27→21:43)
[2019-08-13] MEDS: Cyclobenzaprine TAB* 10 MG PO PRN ×2 (09:27→23:20)
[2019-08-13 10:07] LABS: ABS Lymphocytes 1.1 10^3/ul (1.0-4.8); ABS Monocytes 0.7 10^3/ul (0-0.8); ABS Neutrophils 7.5 10^3/ul (1.5-7.7); Eosinophil % 0.2 %; Hematocrit 30 % (35-47); Hemoglobin 10.2 g/dL (12.0-16.0); Lymphocyte % 12.1 %; Mean Corpuscular HGB Conc 35 g/dL (31-36); Mean Corpuscular Hemoglobin 34 pg (27-31); Mean Corpuscular Volume 97 fL (80-97); Nucleated Red Blood Cells % 0.1; Platelet Count 206 10^3/uL (150-450); Red Blood Count 3.04 10^6 /uL (3.70-4.87); Red Cell Distribution Width 13 % (10-15); White Blood Count 9.4 10^3/uL (3.5-10.8)
--- NOTE | 2019-08-13 10:23 | PN ---
Subjective Date of Service: 08/13/19 Interval History: Pt c/o severe post op back pain Objective Active Medications: Acetaminophen (Tylenol Tab*) 650 mg PO Q4H PRN PRN Reason: MILD PAIN or TEMP > 100.4 Albuterol (Ventolin 2.5 Mg/3 Ml Neb.Denise*) 2.5 mg INH Q4H PRN PRN Reason: SOB/WHEEZING Albuterol (Ventolin Hfa Inhaler*) 2 puff INH Q4H PRN PRN Reason: SOB/WHEEZING Last Admin: 08/13/19 06:39 Dose: 2 puff Buspirone HCl (Buspar Tab*) 10 mg PO BID [facility] Last Admin: 08/13/19 09:27 Dose: 10 mg Cyclobenzaprine HCl (Flexeril Tab*) 10 mg PO TID PRN PRN Reason: SPASMS - MUSCLE Last Admin: 08/13/19 09:27 Dose: 10 mg Docusate Sodium (Colace Cap*) 100 mg PO BID [facility] Last Admin: 08/13/19 09:26 Dose: 100 mg Escitalopram Oxalate (Lexapro *) 10 mg PO BEDTIME [facility] Last Admin: 08/12/19 20:05 Dose: 10 mg Gabapentin (Neurontin Cap(*)) 300 mg PO TID [facility] Last Admin: 08/13/19 09:26 Dose: 300 mg Lactated Ringer's (Lactated Ringers 1000 Ml Bag*) 1,000 mls @ 50 mls/hr IV .per rate [facility] Magnesium Hydroxide (Milk Of Magnesia Liq*) 30 ml PO DAILY PRN PRN Reason: CONSTIPATION Mometasone Furoate (Asmanex 220 Mcg Mdi *) 2 puff INH BID [facility] Last Admin: 08/13/19 08:21 Dose: Not Given Morphine Sulfate (Morphine Inj (Syringe))*) 2 mg IV Q2H PRN PRN Reason: PAIN - SEVERE Last Admin: 08/13/19 08:05 Dose: 2 mg Ondansetron HCl (Zofran Inj*) 4 mg IV Q6H PRN PRN Reason: NAUSEA/VOMITING Oxycodone HCl (Roxycodone Tab*) 15 mg PO Q4H PRN PRN Reason: PAIN - SEVERE Last Admin: 08/13/19 09:27 Dose: 15 mg Oxycodone HCl (Roxycodone Tab*) 10 mg PO Q4H PRN PRN Reason: PAIN - MODERATE Oxycodone HCl (Roxycodone Tab*) 5 mg PO Q4H PRN PRN Reason: PAIN - MILD Senna (Senokot 8.6 Mg Tab*) 2 tab PO BEDTIME PRN PRN Reason: CONSTIPATION Vital Signs - 8 hr 08/13/19 08/13/19 08/13/19 02:51 03:24 04:00 Temperature 98.2 F Pulse Rate 90 Respiratory 16 17 Rate Blood Pressure 104/49 (mmHg) O2 Sat by Pulse 94 93 Oximetry 08/13/19 08/13/19 08/13/19 04:34 06:00 08:00 Temperature Pulse Rate Respiratory 18 16 Rate Blood Pressure (mmHg) O2 Sat by Pulse 92 83 Oximetry 08/13/19 08/13/19 08/13/19 08:05 09:26 09:27 Temperature Pulse Rate Respiratory 18 18 18 Rate Blood Pressure (mmHg) O2 Sat by Pulse Oximetry 08/13/19 08/13/19 08/13/19 09:33 09:45 10:00 Temperature 98.7 F Pulse Rate 92 Respiratory 18 16 Rate Blood Pressure 138/105 (mmHg) O2 Sat by Pulse 83 95 Oximetry Oxygen Devices in Use Now: Nasal Cannula Appearance: 54 yo f in nAD, aAOx3 Eyes: No Scleral Icterus, PERRLA Ears/Nose/Mouth/Throat: NL Teeth, Lips, Gums, Mucous Membranes Moist Neck: NL Appearance and Movements; NL JVP, Trachea Midline Respiratory: Symmetrical Chest Expansion and Respiratory Effort, Clear to Auscultation, - - distent breath sounds b/l Cardiovascular: NL Sounds; No Murmurs; No JVD, RRR Abdominal: NL Sounds; No Tenderness; No Distention, - - Back-tender in areas surrounding the post op incisions. 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 Cardoza (2) COPD (chronic obstructive pulmonary disease) Comment: - Stable, remains on 4L NC since her surgery -IS ordered - No evidence of COPD exacerbation -cont inhalers (3) Tobacco abuse Comment: Declined nicotine patch (4) Postoperative anemia Comment: no other acute bleeding noted Hb at 10, cont to monitor (5) DVT prophylaxis Comment: SCD's till neurosurg decides on pharmacologic prophylaxis
[2019-08-13 10:26] LABS: BUN/Creatinine Ratio 24.4 (8-20); Calcium 8.1 mg/dL (8.6-10.3); EGFR African American 174.4 (>60); EGFR Non-African American 144.1 (>60); Potassium 4.3 mmol/L (3.5-5.0)
[2019-08-13] MEDS: Lactated Ringers 1000 ML Bag* 1,000 ML IV SCH (14:42)
--- NOTE | 2019-08-13 18:38 | PN ---
Progress Note - Progress Note Date of Service: 08/13/19 SOAP: Subjective: []No events ON. Patient tolerated procedure well yesterday. Ambulated to bathroom. Tolerates PO well. Pain is well controlled. Preop RLE pain and weakness resolved. Objective: []VSS Wound s,c,d Eric drains in place. Output noted AAOx3 MADYSON, CN II -XII grossly intact. Motor 5/5 all extremities Sensory grossly intact to light touch. Assessment: []54 yof POD#1 L3-S1 PL arthrodesis, Rt L 4-5, L5-S1 TLIF, L3 -Pelvis instrumentation with pedicle, S2AI screws. Plan: []Monitor VS, Neurochecks. Encourage ambulation. PT. IS. DC planning. Nutrition consult. L-Spinerevealed good placement of hardware, good alignment of lumbar spine with significant improvement of kyphosis. Appreciate Dr Smalls's, Dr Mireles's care. Raffy Cardoza MD
--- NOTE | 2019-08-13 18:45 | PN ---
Progress Note - Progress Note Date of Service: 08/13/19 Note: INPATIENT PAIN-PROGRESS Teresa thinks the 15 mg oxycodone may bee to strong for her but also notes she is in a good deal of pain. I will lower her PRN oxycodone and add oxycontin 15 mg BID. Current Medications Acetaminophen (Tylenol Tab*) 650 mg PO Q4H PRN PRN Reason: MILD PAIN or TEMP > 100.4 Albuterol (Ventolin 2.5 Mg/3 Ml Neb.Denise*) 2.5 mg INH Q4H PRN PRN Reason: SOB/WHEEZING Albuterol (Ventolin Hfa Inhaler*) 2 puff INH Q4H PRN PRN Reason: SOB/WHEEZING Last Admin: 08/13/19 06:39 Dose: 2 puff Buspirone HCl (Buspar Tab*) 10 mg PO BID [facility] Last Admin: 08/13/19 09:27 Dose: 10 mg Cyclobenzaprine HCl (Flexeril Tab*) 10 mg PO TID PRN PRN Reason: SPASMS - MUSCLE Last Admin: 08/13/19 09:27 Dose: 10 mg Docusate Sodium (Colace Cap*) 100 mg PO BID [facility] Last Admin: 08/13/19 09:26 Dose: 100 mg Escitalopram Oxalate (Lexapro *) 10 mg PO BEDTIME [facility] Last Admin: 08/12/19 20:05 Dose: 10 mg Gabapentin (Neurontin Cap(*)) 300 mg PO TID [facility] Last Admin: 08/13/19 14:35 Dose: 300 mg Lactated Ringer's (Lactated Ringers 1000 Ml Bag*) 1,000 mls @ 75 mls/hr IV .per rate [facility] Last Admin: 08/13/19 14:42 Dose: 75 mls/hr Magnesium Hydroxide (Milk Of Magnesia Liq*) 30 ml PO DAILY PRN PRN Reason: CONSTIPATION Mometasone Furoate (Asmanex 220 Mcg Mdi *) 2 puff INH BID [facility] Last Admin: 08/13/19 08:21 Dose: Not Given Morphine Sulfate (Morphine Inj (Syringe))*) 2 mg IV Q2H PRN PRN Reason: PAIN - SEVERE Last Admin: 08/13/19 12:11 Dose: 2 mg Ondansetron HCl (Zofran Inj*) 4 mg IV Q6H PRN PRN Reason: NAUSEA/VOMITING Oxycodone HCl (Roxycodone Tab*) 15 mg PO Q4H PRN PRN Reason: PAIN - SEVERE Last Admin: 08/13/19 14:36 Dose: 15 mg Oxycodone HCl (Roxycodone Tab*) 10 mg PO Q4H PRN PRN Reason: PAIN - MODERATE Oxycodone HCl (Roxycodone Tab*) 5 mg PO Q4H PRN PRN Reason: PAIN - MILD Senna (Senokot 8.6 Mg Tab*) 2 tab PO BEDTIME PRN PRN Reason: CONSTIPATION Vital Signs Temp Pulse Resp BP Pulse Ox 99.9 F 97 16 102/43 95 08/13/19 14:11 08/13/19 14:11 08/13/19 16:30 08/13/19 14:11 08/13/19 16:00 EXAM: GENERAL: More alert than last night. Mild distress LUNGS: Clear HEART: Reg rhythm ABDOMEN: Soft NEUROLOGIC: Able to move legs with no focal weakness ASSESSMENT: 1. L3-S1 Posterolateral fusion with right L4/5 and L5/S1 TLIF PLAN: D/c oxycodone 15 mg for extreme pain. Add OxyContin 15 mg BID.
[2019-08-13] MEDS ORDERED: oxyCODONE TAB* 5 MG TAB PO PRN (18:46)
[2019-08-13] MEDS: oxyCODONE SR TAB(*) 15 MG TAB.SR PO SCH (21:43)
[2019-08-13] MEDS: Escitalopram * 10 MG TAB PO SCH (21:44)
--- NOTE | 2019-08-14 01:50 | PN ---
Hospitalist Progress Note Date of Service: 08/14/19 Called for temp of 100.4 and hr 99. Patient meeting sirs criteria. At this point this could be related to recent surgery. However given her history of infection. I will conde culture. I will check lactic. I will hold abx unless source is found. Blood cultures ordered. Urinalysis ordered. We will continue to monitor at this point.
[2019-08-14] MEDS ORDERED: cefTRIAXone(*) 1 GM in NS 0.9% 50 ML* 50 ML IVPB SCH (02:00)
[2019-08-14 03:16] LABS: ABS Monocytes 1.1 10^3/ul (0-0.8); ABS Neutrophils 10.9 10^3/ul (1.5-7.7); Eosinophil % 0.1 %; Hematocrit 28 % (35-47); Hemoglobin 9.6 g/dL (12.0-16.0); Lymphocyte % 7.8 %; Mean Corpuscular HGB Conc 34 g/dL (31-36); Mean Corpuscular Hemoglobin 33 pg (27-31); Mean Corpuscular Volume 97 fL (80-97); Mean Platelet Volume 7.2 fL (7.4-10.4); Platelet Count 193 10^3/uL (150-450); Red Cell Distribution Width 13 % (10-15)
[2019-08-14 03:34] LABS: Albumin 3.3 g/dL (3.2-5.2); Albumin/Globulin Ratio 1.4 (1-3); BUN/Creatinine Ratio 23.7 (8-20); C Reactive Protein 144.83 mg/L (<8.01); Calcium 8.5 mg/dL (8.6-10.3); EGFR Non-African American 175.2 (>60); Globulin 2.3 g/dL (2-4); Potassium 4.2 mmol/L (3.5-5.0); Total Bilirubin 0.4 mg/dL (0.2-1.0); Total Protein 5.6 g/dL (6.4-8.9)
[2019-08-14 04:23] LABS: Erythrocyte Sed Rate 49 mm/Hr (0-29)
[2019-08-14 05:03] LABS: ABS Lymphocytes 1.1 10^3/ul (1.0-4.8); ABS Neutrophils 10.5 10^3/ul (1.5-7.7); Eosinophil % 0.1 %; Hematocrit 29 % (35-47); Hemoglobin 9.9 g/dL (12.0-16.0); Lymphocyte % 8.3 %; Mean Corpuscular HGB Conc 35 g/dL (31-36); Mean Corpuscular Hemoglobin 34 pg (27-31); Mean Corpuscular Volume 97 fL (80-97); Mean Platelet Volume 6.9 fL (7.4-10.4); Platelet Count 183 10^3/uL (150-450); Red Blood Count 2.94 10^6 /uL (3.70-4.87); Red Cell Distribution Width 13 % (10-15); White Blood Count 12.7 10^3/uL (3.5-10.8)
[2019-08-14 05:22] LABS: CO2 Carbon Dioxide 35 mmol/L (22-32); Calcium 8.7 mg/dL (8.6-10.3); Chloride 99 mmol/L (101-111); Potassium 4.7 mmol/L (3.5-5.0); Sodium 134 mmol/L (135-145)
[2019-08-14 05:28] LABS: BUN/Creatinine Ratio 21.4 (8-20); Blood Urea Nitrogen 9 mg/dL (6-24); EGFR African American 188.8 (>60); EGFR Non-African American 156.1 (>60); Glucose 111 mg/dL (70-100)
[2019-08-14] MEDS: Lactated Ringers 1000 ML Bag* 1,000 ML IV SCH ×2 (07:20→21:45)
[2019-08-14] MEDS: oxyCODONE SR TAB(*) 15 MG TAB.SR PO SCH ×2 (09:04→21:06)
[2019-08-14] MEDS: busPIRone TAB* 10 MG PO SCH ×2 (09:04→21:07)
[2019-08-14] MEDS: Docusate CAP* 100 MG PO SCH ×2 (09:04→21:06)
[2019-08-14] MEDS: Gabapentin CAP(*) 300 MG PO SCH ×3 (09:04→21:06)
[2019-08-14] MEDS: oxyCODONE TAB* 5 MG TAB PO PRN ×3 (09:59→19:17)
[2019-08-14] MEDS: Mometasone 220 MCG MDI INH SCH ×2 (09:59→19:31)
--- NOTE | 2019-08-14 17:14 | PN ---
Subjective Date of Service: 08/14/19 Interval History: Pt had a temp of 100.4 at night. c/o back pain post op, no new complaints Objective Active Medications: Acetaminophen (Tylenol Tab*) 650 mg PO Q4H PRN PRN Reason: MILD PAIN or TEMP > 100.4 Albuterol (Ventolin 2.5 Mg/3 Ml Neb.Denise*) 2.5 mg INH Q4H PRN PRN Reason: SOB/WHEEZING Albuterol (Ventolin Hfa Inhaler*) 2 puff INH Q4H PRN PRN Reason: SOB/WHEEZING Last Admin: 08/13/19 06:39 Dose: 2 puff Buspirone HCl (Buspar Tab*) 10 mg PO BID [facility] Last Admin: 08/14/19 09:04 Dose: 10 mg Cyclobenzaprine HCl (Flexeril Tab*) 10 mg PO TID PRN PRN Reason: SPASMS - MUSCLE Last Admin: 08/13/19 23:20 Dose: 10 mg Docusate Sodium (Colace Cap*) 100 mg PO BID [facility] Last Admin: 08/14/19 09:04 Dose: 100 mg Escitalopram Oxalate (Lexapro *) 10 mg PO BEDTIME [facility] Last Admin: 08/13/19 21:44 Dose: 10 mg Gabapentin (Neurontin Cap(*)) 300 mg PO TID [facility] Last Admin: 08/14/19 13:51 Dose: 300 mg Lactated Ringer's (Lactated Ringers 1000 Ml Bag*) 1,000 mls @ 75 mls/hr IV .per rate [facility] Last Admin: 08/14/19 07:20 Dose: 75 mls/hr Magnesium Hydroxide (Milk Of Magnesia Liq*) 30 ml PO DAILY PRN PRN Reason: CONSTIPATION Mometasone Furoate (Asmanex 220 Mcg Mdi *) 2 puff INH BID [facility] Last Admin: 08/14/19 09:59 Dose: 2 puff Morphine Sulfate (Morphine Inj (Syringe))*) 2 mg IV Q2H PRN PRN Reason: PAIN - SEVERE Last Admin: 08/13/19 12:11 Dose: 2 mg Ondansetron HCl (Zofran Inj*) 4 mg IV Q6H PRN PRN Reason: NAUSEA/VOMITING Oxycodone HCl (Roxycodone Tab*) 10 mg PO Q4H PRN PRN Reason: PAIN - SEVERE Last Admin: 08/14/19 13:54 Dose: 10 mg Oxycodone HCl (Roxycodone Tab*) 5 mg PO Q4H PRN PRN Reason: PAIN - MODERATE Oxycodone HCl (Oxycontin(*)) 15 mg PO Q12HR [facility] Last Admin: 08/14/19 09:04 Dose: 15 mg Senna (Senokot 8.6 Mg Tab*) 2 tab PO BEDTIME PRN PRN Reason: CONSTIPATION Vital Signs - 8 hr 08/14/19 08/14/19 08/14/19 09:59 10:42 11:37 Temperature Pulse Rate Respiratory 18 18 18 Rate Blood Pressure (mmHg) O2 Sat by Pulse Oximetry 08/14/19 08/14/19 08/14/19 11:41 13:51 13:54 Temperature 99 F Pulse Rate 97 Respiratory 16 18 18 Rate Blood Pressure 99/46 (mmHg) O2 Sat by Pulse 100 Oximetry 08/14/19 08/14/19 15:00 16:15 Temperature 98.8 F Pulse Rate 87 Respiratory 18 18 Rate Blood Pressure 106/37 (mmHg) O2 Sat by Pulse 95 Oximetry Oxygen Devices in Use Now: Nasal Cannula Appearance: 54 yo F in nAD, AAOx3 Eyes: No Scleral Icterus, PERRLA Ears/Nose/Mouth/Throat: NL Teeth, Lips, Gums, Mucous Membranes Moist Neck: NL Appearance and Movements; NL JVP, Trachea Midline Respiratory: Symmetrical Chest Expansion and Respiratory Effort Cardiovascular: NL Sounds; No Murmurs; No JVD, RRR Abdominal: NL Sounds; No Tenderness; No Distention Lymphatic: No Cervical Adenopathy Extremities: No Edema, No Clubbing, Cyanosis Skin: No Nodules or Sclerosis, - - back incisions not uncovered for inspection Neurological: Alert and Oriented x 3, NL Muscle Strength and Tone Result Diagrams: 08/14/19 04:55 08/14/19 04:55 Microbiology and Other Data: Microbiology 08/14/19 05:50 Gram Stain - Final Sputum Expectorated Assess/Plan/Problems-Billing Assessment: 54 yo F with h/o COPD, 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 Cardoza (2) COPD (chronic obstructive pulmonary disease) Comment: - Stable, remains on 4L NC since her surgery -IS ordered - No evidence of COPD exacerbation -cont inhalers (3) Tobacco abuse Comment: Declined nicotine patch (4) Postoperative anemia Comment: no other acute bleeding noted Hb at 10, cont to monitor (5) Temperature elevated Comment: 100.4 temp on POD #1 CXR shows bibasiliar opacities-likely atelectasis cont IS (6) Hyponatremia Comment: mild, improved with IVF, will cont IR (7) DVT prophylaxis Comment: SCD's till neurosurg decides on pharmacologic prophylaxis Status and Disposition: Inpatient
--- NOTE | 2019-08-14 17:44 | PN ---
Progress Note - Progress Note Date of Service: 08/14/19 SOAP: Subjective: []Mild fever ON. Cultures were sent. Ambulates to bathroom. Tolerates PO well. Voids. Pain is well controlled. Wants to go to rehab tomorrow. Objective: [] VSS Wound s,c,d Eric drains in place. Output noted Drains were removed. Catheters appeared to be intact. No complications. Patient tolerated procedure well. AAOx3 MADYSON, CN II -XII grossly intact. Motor 5/5 all extremities Sensory grossly intact to light touch. Assessment: [] 54 yof POD#2 L3-S1 PL arthrodesis, Rt L 4-5, L5-S1 TLIF, L3 -Pelvis instrumentation with pedicle, S2AI screws. Plan: [] Monitor VS, Neurochecks. Encourage ambulation. PT. IS. DC planning. Appreciate Dr Smalls's, Dr Mireles's care. Raffy Cardoza MD
[2019-08-14] MEDS: Escitalopram * 10 MG TAB PO SCH (21:06)
[2019-08-14] MEDS: Heparin VIAL(*) 5000 UNITS/ML VIAL (FIVE THOUSAND) SUBCUT SCH (21:43)
[2019-08-14 22:29] LABS: Urine Appearance Clear; Urine Bilirubin Negative (Negative); Urine Blood 1+ (Negative); Urine Color Yellow; Urine Glucose Negative (Negative); Urine Ketones Negative (Negative); Urine Nitrite Negative (Negative); Urine Protein Negative (Negative); Urine Specific Gravity 1.006 (1.010-1.030); Urine Urobilinogen Negative (Negative)
[2019-08-14 22:31] LABS: Urine Bacteria Absent (Absent); Urine Red Blood Cell Trace(0-2/hpf) (Absent); Urine Squamous Epithelial Cell Present (Absent); Urine White Blood Cell Trace(0-5/hpf) (Absent)
[2019-08-15] MEDS: Heparin VIAL(*) 5000 UNITS/ML VIAL (FIVE THOUSAND) SUBCUT SCH (06:20)
[2019-08-15 07:20] LABS: BUN/Creatinine Ratio 18.4 (8-20); EGFR Non-African American 175.2 (>60); Potassium 3.9 mmol/L (3.5-5.0)
[2019-08-15] MEDS: busPIRone TAB* 10 MG PO SCH (08:22)
[2019-08-15] MEDS: oxyCODONE SR TAB(*) 15 MG TAB.SR PO SCH (08:22)
[2019-08-15] MEDS: Docusate CAP* 100 MG PO SCH (08:23)
[2019-08-15] MEDS: Gabapentin CAP(*) 300 MG PO SCH (08:23)
[2019-08-15] MEDS: Mometasone 220 MCG MDI INH SCH (08:24)
[2019-08-15 11:29] VITALS: BP 127/45
--- NOTE | 2019-08-15 13:39 | DS ---
CC: PORFIRIO Mora; Dr. Cardoza; Dr. Mireles * DISCHARGE/TRANSFER SUMMARY: DATE OF ADMISSION: 08/12/19 DATE OF DISCHARGE/TRANSFER: To [facility], 08/15/19. PRIMARY CARE PROVIDER: PORFIRIO Mora DISPOSITION AT DISCHARGE: [facility]. CONDITION ON DISCHARGE: Stable. DISCHARGE DIAGNOSES: 1. Status post posterior L3 to S1 posterolateral fusion with right L4-5 and L5- S1 TLIF with PEEK interbody cages, DBX and local bone graft. L3 to S1 and pelvis instrumentation with bilateral L3, L4, L5 and S1 pedicle screws with bilateral S2AI screws with posterior partial osteotomies at L4-L5 and L5-S1 and partial Sidra osteotomies at L4-L5, L5-S1 and L3-L4 facet decortication with intraoperative navigation, intraoperative electrophysiological monitoring, and microscope. The procedure was performed by Dr. Cardoza on 08/12/19. 2. Postoperative hypoxia that continues to be a problem likely due to atelectasis. The patient is being discharged on 2 to 3 L of oxygen via nasal cannula to be weaned off as tolerated in the rehab. SECONDARY DIAGNOSES: 1. Chronic obstructive pulmonary disease, previously not oxygen-dependent. 2. History of coronary artery disease. 3. Dyslipidemia. 4. Tobacco use at 1 pack per day. 5. Anxiety/depression. 6. Osteoarthritis. 7. Lung nodule. 8. Hyperlipidemia. 9. Carpal tunnel release. 10. 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 11. Admission to our [facility] in May of 2019 for L4 and L5 osteodiskitis. CONSULTATIONS DURING THE HOSPITAL STAY: Included Dr. Cardoza from Neurosurgery and Dr. Mireles from Pain Management. MEDICATIONS AT DISCHARGE: Include: 1. Albuterol inhaler on a p.r.n. basis. 2. Albuterol nebulizer on a p.r.n. basis. 3. BuSpar 10 mg b.i.d. 4. Lexapro 10 mg at bedtime. 5. Flovent Diskus 250 mcg 2 puffs inhalation b.i.d. 6. Oxycodone 10 mg every 4 hours p.r.n. moderate pain. 7. Tylenol 650 mg every 4 hours p.r.n. mild pain. 8. Oxycodone SR 15 mg every 12 hours. 9. Neurontin 300 mg 3 times a day. 10. Colace 100 mg b.i.d. 11. Flexeril 10 mg 3 times a day. 12. Senna 2 tabs at bedtime. LABORATORY DATA DURING THE HOSPITAL STAY: Included on 08/14/19, white blood cell count of 12.7, hemoglobin of 9.9, hematocrit of 29, and platelets of 183. Sodium was 130, potassium 3.9, chloride 92, carbon dioxide 34, BUN 7, creatinine 0.38. DISCHARGE RECOMMENDATIONS: At discharge, the patient is recommended to keep the wound and incision dry for 2 days and okay to shower in 2 days. It is okay for the rehab to recheck the incision in a week, or if the rehab providers are not comfortable with that, to call Dr. Cardoza' office for an appointment in 7 to 10 days postoperatively. ACTIVITY: The patient is advised not to do any bending down, driving, or lifting until cleared by Neurosurgery. The patient is to ambulate with a rolling walker. The patient is currently on oxygen continuously at 2 to 3 L. HOSPITALIZATION COURSE: Teresa Alvarez is a 54-year-old female who underwent a complex lumbar spine surgery with fusion as documented above. That was performed by Dr. Cardoza on 08/12/19. Postoperatively, she did rather well, although she continues to have problems with hypoxemia. The patient has rather severe COPD, but she was not on oxygen at baseline. Her pain was managed by Dr. Mireles from Pain Management. The patient did well, and on 08/15/19, she is ready to go to rehabilitation for further physical therapy. She is going to be discharged to [facility] today. The patient is also recommended to follow up with a physician at rehab place in approximately 3 days after discharge. Please note that during her hospital stay she had T-max of 100.4 degrees. At that point, blood cultures were obtained and they are negative growth so far and her chest x-ray showed bibasilar opacities, possibility of infiltrate or atelectasis. The patient likely had atelectasis and now she is doing better. Her fever has resolved. PHYSICAL EXAMINATION: At the time of discharge, blood pressure of 127/45, heart rate of 102 and regular, respiratory rate 16, oxygen saturation 93% on 3 L of oxygen via nasal cannula, temperature 98.7. General: The patient is a very pleasant 54-year-old female, who is in no acute distress. The patient is alert and oriented x3. HEENT: Head: Atraumatic, normocephalic. Eyes: Pupils are equal, reactive to light and accommodation. Oropharynx is clear. Mucosa moist. Neck: Supple. No JVD. No bruits bilaterally. Cardiovascular: Regular rate and rhythm. No murmur. Respiratory: Distant breath sounds bilaterally. Abdomen: Soft, nontender. Bowel sounds are present in all 4 quadrants. Extremities: There is no edema. Pulses are 2+ bilaterally. No clubbing or cyanosis. On evaluation of the skin, on the patient's back, the patient has the incisions that are covered with postoperative dressings that were not removed. They are dry. There is no evidence of infection of the surrounding and exposed skin. On neuro evaluation, speech is clear. Cranial nerves II through XII grossly intact. Motor strength is 5/5 bilaterally. Please note that this is a short summary of the patient's hospitalization. Please refer to further medical records for details. TIME SPENT: Approximately 45 minutes was spent on the patient's discharge. [id number]/CPS #: [id number] ANTHONY
== END 2019-08-15 14:15 | disposition home or self-care (01) | DRG 304 ==
LOC: AA 05:45 → SSU 16:48
PROVIDERS: ADMIT Neurological Surgery; ATTEND Internal Medicine
PROC: 0SG30AJ Fusion of Lumbosacral Joint with Interbody Fusion Device, Posterior Approach, Anterior Column, Open Approach (ICD-10-PCS; 2019-08-12)
PROC: 4A11X4G Monitoring of Peripheral Nervous Electrical Activity, Intraoperative, External Approach (ICD-10-PCS; 2019-08-12)
PROC: 8E0WXBZ Computer Assisted Procedure of Trunk Region (ICD-10-PCS; 2019-08-12)
PROC: 0SG00AJ Fusion of Lumbar Vertebral Joint with Interbody Fusion Device, Posterior Approach, Anterior Column, Open Approach (ICD-10-PCS; principal; 2019-08-12 07:30)
DX: M46.47 Discitis, unspecified, lumbosacral region (principal); M46.26 Osteomyelitis of vertebra, lumbar region; E87.1 Hypo-osmolality and hyponatremia; R65.10 Systemic inflammatory response syndrome (SIRS) of non-infectious origin without acute organ dysfunction; J98.11 Atelectasis; J44.9 Chronic obstructive pulmonary disease, unspecified; F17.210 Nicotine dependence, cigarettes, uncomplicated; M47.26 Other spondylosis with radiculopathy, lumbar region; I25.10 Atherosclerotic heart disease of native coronary artery without angina pectoris; E78.5 Hyperlipidemia, unspecified; F41.9 Anxiety disorder, unspecified; F32.9 Major depressive disorder, single episode, unspecified; R91.1 Solitary pulmonary nodule; G89.29 Other chronic pain; M40.46 Postural lordosis, lumbar region; M40.299 Other kyphosis, site unspecified; D64.9 Anemia, unspecified; R09.02 Hypoxemia; Z91.018 Allergy to other foods; Z88.0 Allergy status to penicillin; Z88.6 Allergy status to analgesic agent; Z79.899 Other long term (current) drug therapy
CPT/HCPCS: 36415; 71045; 72100; 76000; 80048; 80053; 81003; 81015; 82803; 83605; 85025; 85652; 86140; 87040; 87070; 87086; 87205; 94640; 95940; A9270-GY; C1713; C1776; C9359; J0330; J0696; J1100; J1170; J1644; J2250; J2270; J2405; J2704; J3370

== ENCOUNTER 2023-01-25 06:31 | Inpatient (IN) ==
[2023-01-25] MEDS ORDERED: Heparin DRIP 25,000 UNITS BAG 25,000 UNITS/500 ML BAG IV SCH (07:30)
[2023-01-25 07:43] LABS: ABS Lymphocytes 0.7 10^3/uL (1.0-4.8); ABS Monocytes 0.2 10^3/uL (0.0-0.9); ABS Neutrophils 8.2 10^3/uL (1.5-7.6); ABS Nucleated RBC 0.01 10^3/ul; Eosinophil % 0.1 %; Hematocrit 38.4 % (35-45); Hemoglobin 13.2 g/dL (11.5-14.3); Mean Corpuscular Hgb Conc 34.3 g/dL (31-36); Mean Corpuscular Volume 99.2 fL (80-97); Mean Platelet Volume 7.9 fL (7.5-11.2); Nucleated Red Blood Cells % 0.1 /100 WBC (0.0-0.4); Platelet Count 237 10^3/uL (150-450); Red Blood Count 3.86 10^6/uL (3.63-4.92); Red Cell Distribution Width 13.1 % (12-17); White Blood Count 9.2 10^3/uL (3.8-11.8)
[2023-01-25] MEDS: Heparin 5000 UNITS/ML 1 mL VIAL IV SCH ×2 (07:54→21:17)
[2023-01-25 08:01] LABS: Albumin 4.1 g/dL (3.2-5.2); Albumin/Globulin Ratio 1.6 (1-3); Calcium 8.9 mg/dL (8.6-10.3); Creatinine, Serum 0.62 mg/dL (0.51-0.95); Globulin 2.5 g/dL (2-4); Potassium 4.7 mmol/L (3.5-5.0); Total Bilirubin 0.2 mg/dL (0.2-1.0); Total Protein 6.6 g/dL (6.4-8.9); eGFR CKD-EPI 102.5 (>60)
[2023-01-25 08:09] LABS: ABS Lymphocytes 0.7 10^3/uL (1.0-4.8); ABS Monocytes 0.2 10^3/uL (0.0-0.9); ABS Neutrophils 7.2 10^3/uL (1.5-7.6); Hemoglobin 13.3 g/dL (11.5-14.3); Lymphocyte % 8.5 %; Mean Corpuscular Hemoglobin 34.2 pg (27-33); Mean Corpuscular Hgb Conc 34.9 g/dL (31-36); Mean Corpuscular Volume 98.1 fL (80-97); Mean Platelet Volume 7.5 fL (7.5-11.2); Platelet Count 225 10^3/uL (150-450); Red Blood Count 3.88 10^6/uL (3.63-4.92); Red Cell Distribution Width 12.8 % (12-17); White Blood Count 8.1 10^3/uL (3.8-11.8)
[2023-01-25 08:27] LABS: Creatinine, Serum 0.61 mg/dL (0.51-0.95); eGFR CKD-EPI 102.9 (>60)
[2023-01-25] MEDS ORDERED: Iohexol 350 (CONTRAST) 500 ML MDV IV ONE (08:30)
[2023-01-25] MEDS ORDERED: Albuterol/Ipratropium NEB.SOL (2.5/0.5 MG) 3 ML NEB.SOLN INH ONE (09:19)
[2023-01-25] MEDS ORDERED: Metoprolol Tartrate 5 mg VIAL 5 ml VIAL (1 mg/ml) IV ONE (09:39)
[2023-01-25] MEDS ORDERED: nitroGLYCERIN DRIP 25,000 MCG/250 ML BTL IV SCH (10:00)
[2023-01-25 10:22] LABS: High Sensitivity Troponin 1 Hr 182 pg/mL (<15)
[2023-01-25] MEDS ORDERED: Ondansetron 4 mg VIAL 2 MG/ML 2 ml VIAL ONE (12:30)
[2023-01-25] MEDS ORDERED: Dexamethasone IV 4 MG/ML VIAL 1 ml VIAL ONE (12:30)
[2023-01-25] MEDS ORDERED: Propofol 10 MG/ML 20 ML BTL ONE (12:30)
[2023-01-25] MEDS ORDERED: Lidocaine 1% MPF 2 ML VIAL ONE (12:30)
[2023-01-25] MEDS ORDERED: Albuterol 0.5% CONC CONTINUOUS NEB.SOL 5 mg/ml 20 ml BOT INH SCH (14:00)
[2023-01-25] MEDS ORDERED: Albuterol/Ipratropium NEB.SOL (2.5/0.5 MG) 3 ML NEB.SOLN INH PRN (14:33)
[2023-01-25] MEDS: methylPREDNISolone SOD SUCC 40 mg/ml 1 ml VIAL IV SCH (16:47)
[2023-01-25 20:43] LABS: HDL Cholesterol 64.1 mg/dL
[2023-01-26] MEDS: methylPREDNISolone SOD SUCC 40 mg/ml 1 ml VIAL IV SCH ×2 (03:30→15:48)
[2023-01-26 03:52] LABS: Hematocrit 36.8 % (35-45); Hemoglobin 12.8 g/dL (11.5-14.3); Mean Corpuscular Hemoglobin 34.3 pg (27-33); Mean Corpuscular Hgb Conc 34.8 g/dL (31-36); Mean Corpuscular Volume 98.5 fL (80-97); Mean Platelet Volume 7.4 fL (7.5-11.2); Platelet Count 206 10^3/uL (150-450); Red Blood Count 3.73 10^6/uL (3.63-4.92); White Blood Count 6.6 10^3/uL (3.8-11.8)
[2023-01-26 04:09] LABS: Calcium 8.8 mg/dL (8.6-10.3); Creatinine, Serum 0.62 mg/dL (0.51-0.95); Potassium 3.9 mmol/L (3.5-5.0); eGFR CKD-EPI 102.5 (>60)
[2023-01-26] MEDS ORDERED: fentaNYL 100 mcg/2 ml 50 MCG/ML VIAL ONE (11:03)
[2023-01-26] MEDS ORDERED: Rocuronium 50 mg VIAL 10 mg/ml 5 ml VIAL (50 mg) ONE (11:04)
[2023-01-26] MEDS ORDERED: Midazolam 2 mg/2 ml VIAL 1 mg/ml 2 ml VIAL (2 mg) ONE (11:04)
[2023-01-26] MEDS ORDERED: Heparin 2 UNITS/ML 1000 mls 1,000 ML IV ONE (11:09)
[2023-01-26] MEDS: Albuterol HFA INHALER 8 gm MDI INH PRN ×2 (11:10→19:08)
[2023-01-26] MEDS ORDERED: VERAPAMIL 2.5 MG/ML 2 ML VIAL ** 5 mg/2 ml ONE (11:19)
[2023-01-26] MEDS ORDERED: Heparin 1,000 UNIT/ML 10 ml (10,000 UNITS) CATHLAB/DIALYSIS ONE (11:20)
[2023-01-26] MEDS ORDERED: nitroGLYCERIN DRIP 25,000 MCG/250 ML BTL ONE (11:20)
[2023-01-26] MEDS ORDERED: fentaNYL 100 mcg/2 ml 50 MCG/ML VIAL IV PRN (11:22)
[2023-01-26] MEDS ORDERED: oxyCODONE/Acetamin 5/325 mg TAB PO PRN (11:22)
[2023-01-26] MEDS ORDERED: Naloxone 0.4 mg VIAL 0.4 mg/ml 1 ml VIAL IV PRN (11:22)
[2023-01-26] MEDS ORDERED: Ondansetron 4 mg VIAL 2 MG/ML 2 ml VIAL IV PRN (11:22)
[2023-01-26] MEDS ORDERED: Enoxaparin 40 MG/0.4 ML SYR SUBCUT SCH (17:00)
[2023-01-27] MEDS: methylPREDNISolone SOD SUCC 40 mg/ml 1 ml VIAL IV SCH (01:58)
[2023-01-27 06:32] LABS: ABS Lymphocytes 0.6 10^3/uL (1.0-4.8); ABS Monocytes 0.2 10^3/uL (0.0-0.9); ABS Neutrophils 5.9 10^3/uL (1.5-7.6); ABS Nucleated RBC 0.01 10^3/ul; Hematocrit 37.1 % (35-45); Hemoglobin 12.8 g/dL (11.5-14.3); Lymphocyte % 9.2 %; Mean Corpuscular Hemoglobin 34.4 pg (27-33); Mean Corpuscular Hgb Conc 34.7 g/dL (31-36); Mean Corpuscular Volume 99.3 fL (80-97); Mean Platelet Volume 7.7 fL (7.5-11.2); Nucleated Red Blood Cells % 0.1 /100 WBC (0.0-0.4); Platelet Count 214 10^3/uL (150-450); Red Blood Count 3.73 10^6/uL (3.63-4.92); Red Cell Distribution Width 12.7 % (12-17); White Blood Count 6.8 10^3/uL (3.8-11.8)
[2023-01-27 06:51] LABS: Calcium 8.8 mg/dL (8.6-10.3); Creatinine, Serum 0.46 mg/dL (0.51-0.95); Potassium 4.1 mmol/L (3.5-5.0); eGFR CKD-EPI 110.2 (>60)
[2023-01-27 14:37] VITALS: BP 130/59
== END 2023-01-27 15:05 | disposition home or self-care (01) | DRG 190 ==
LOC: ED 06:31 → EDHOLD 12:40 → SUATTDRO 12:40 → ICU 13:07 → MEDTELE 01-26 18:44
PROVIDERS: ADMIT Student in an Organized Health Care Education/Training Program; ATTEND Student in an Organized Health Care Education/Training Program

== ENCOUNTER 2023-10-29 08:09 | Observation (INO) ==
[2023-10-29] MEDS: Albuterol/Ipratropium NEB.SOL (2.5/0.5 MG) 3 ML NEB.SOLN INH ONE ×2 (08:43→09:49)
[2023-10-29] MEDS ORDERED: Albuterol/Ipratropium NEB.SOL (2.5/0.5 MG) 3 ML NEB.SOLN ONE (08:52)
[2023-10-29 10:44] LABS: High Sensitivity Troponin 1 Hr 97 pg/mL (<15)
[2023-10-29] MEDS ORDERED: Albuterol/Ipratropium NEB.SOL (2.5/0.5 MG) 3 ML NEB.SOLN INH PRN (12:35)
[2023-10-29] MEDS ORDERED: methylPREDNISolone SOD SUCC 40 mg/ml 1 ml VIAL IV SCH (13:00)
[2023-10-29] MEDS: Enoxaparin 40 MG/0.4 ML SYR SUBCUT SCH (14:09)
[2023-10-29] MEDS: cefTRIAXone 1 gm/50 mL D5W 1 GM/50 ML BAG IV SCH (14:09)
[2023-10-29] MEDS: methylPREDNISolone SOD SUCC 125 mg 2 ML VIAL IV ONE (14:09)
[2023-10-29 14:36] LABS: Hematocrit 36.4 % (35-45); Hemoglobin 12.4 g/dL (11.5-14.3); Mean Corpuscular Hemoglobin 33.3 pg (27-33); Mean Corpuscular Volume 97.8 fL (80-97); Mean Platelet Volume 7.7 fL (7.5-11.2); Platelet Count 221 10^3/uL (150-450); Red Blood Count 3.73 10^6/uL (3.63-4.92); Red Cell Distribution Width 12.7 % (12-17); White Blood Count 5.7 10^3/uL (3.8-11.8)
[2023-10-29 15:05] LABS: Anion Gap 4 mmol/L (2-16); Blood Urea Nitrogen 14 mg/dL (6-24); CO2 Carbon Dioxide 34 mmol/L (22-32); Calcium 9.2 mg/dL (8.6-10.3); Chloride 101 mmol/L (101-111); Creatinine, Serum 0.45 mg/dL (0.51-0.95); Glucose 91 mg/dL (70-100); Sodium 139 mmol/L (135-145); eGFR CKD-EPI 110.1 (>60)
[2023-10-29] MEDS: Azithromycin 500 mg/250 ml NS 500 MG/250 ML BAG IVPB SCH (15:17)
[2023-10-29] MEDS: Morphine 2 MG/ML SYRINGE IV ONE (15:17)
[2023-10-29] MEDS: Albuterol/Ipratropium NEB.SOL (2.5/0.5 MG) 3 ML NEB.SOLN INH SCH (15:18)
[2023-10-29] MEDS ORDERED: Sulfur Hexaflouride MICROSPHR 25 MG VIAL ONE (16:24)
[2023-10-29 20:34] LABS: High Sensitivity Troponin 1 Hr 105 pg/mL (<15)
[2023-10-30 02:06] LABS: High Sens Troponin Baseline 93 pg/mL (<15)
[2023-10-30 03:09] LABS: Anion Gap 8 mmol/L (2-16); Blood Urea Nitrogen 15 mg/dL (6-24); CO2 Carbon Dioxide 32 mmol/L (22-32); Calcium 9.1 mg/dL (8.6-10.3); Chloride 99 mmol/L (101-111); Creatinine, Serum 0.51 mg/dL (0.51-0.95); Glucose 106 mg/dL (70-100); Sodium 139 mmol/L (135-145); eGFR CKD-EPI 106.8 (>60)
[2023-10-30 03:20] LABS: High Sensitivity Troponin 1 Hr 81 pg/mL (<15)
[2023-10-30 04:55] LABS: High Sensitivity Troponin 3 Hr 71 pg/mL (<15)
[2023-10-30 05:16] LABS: Phosphorus 3.9 mg/dL (2.5-5.0)
[2023-10-30] MEDS: Venlafaxine XR 75 mg PO SCH (08:28)
[2023-10-30] MEDS ORDERED: Albuterol 2.5mg/3 ml (0.083%) NEB.SOLN INH PRN (10:26)
[2023-10-30] MEDS: Albuterol HFA INHALER 8 gm MDI INH PRN (10:41)
[2023-10-30] MEDS: PTO:BUDESONIDE/GLYCOPYR/FORMOTEROL MDI (NF) INH SCH (12:03)
[2023-10-30] MEDS: BUDESONIDE/GLYCOPYR/FORMOTEROL MDI (NF) INH SCH (12:04)
[2023-10-30] MEDS: cefTRIAXone 1 gm/50 mL D5W 1 GM/50 ML BAG IV SCH (12:39)
[2023-10-30] MEDS: methylPREDNISolone SOD SUCC 40 mg/ml 1 ml VIAL IV SCH (14:27)
[2023-10-30] MEDS: Azithromycin 500 mg/250 ml NS 500 MG/250 ML BAG IVPB SCH (14:31)
[2023-10-31] MEDS: BUDESONIDE/GLYCOPYR/FORMOTEROL MDI (NF) INH SCH (11:04)
[2023-10-31 14:27] VITALS: BP 164/94
== END 2023-10-31 16:45 | disposition home or self-care (01) ==
LOC: EDHOLD 08:09 → ED 08:09 → SUATTDRO 12:35 → MED 15:29
PROVIDERS: ADMIT Hospitalist; ATTEND Internal Medicine